=== PATIENT | female | born 1935 | race Caucasian/White ===

== ENCOUNTER 2018-10-11 10:51 | Inpatient (IN) ==
[2018-10-11] MEDS ORDERED: NS 1,000 ML IV ONE ×2 (11:31→18:24)
--- NOTE | 2018-10-11 11:38 | PROVIDER DOCUMENTATION ---
HPI-Syncope/Dizziness - General Chief Complaint: Palpitations Stated Complaint: PALPITATIONS Time Seen by Provider: 10/11/18 11:04 Allergies/Adverse Reactions: Patient Allergies Allergy/AdvReac Type Severity Reaction Status Date / Time Penicillins AdvReac SHORTNESS Verified 10/11/18 11:35 OF BREATH Home Medications: Home Medication List Medication Instructions Recorded Confirmed Last Taken Type Amitriptyline HCl 1 tab PO QHS 10/11/18 10/11/18 Unknown History Amlodipine Besylate/Benazepril 1 tab PO DAILY 10/11/18 10/11/18 Unknown History [Lotrel 10/20 mg Capsule] Atorvastatin Calcium [Lipitor] 1 tab PO DAILY 10/11/18 10/11/18 Unknown History Cyanocobalamin 1,000 microgm IM DIRECTED 10/11/18 10/11/18 Unknown History Furosemide 1 tab PO DAILY 10/11/18 10/11/18 Unknown History Glyburide/Metformin HCl 1 tab PO BID 10/11/18 10/11/18 Unknown History [Glyburide-Metformin 5-500 mg] Insulin Detemir [Levemir] 50 unit SQ DAILY 10/11/18 10/11/18 Unknown History Levothyroxine [Synthroid] 1 tab PO DAILY 10/11/18 10/11/18 Unknown History Meclizine HCl [Antivert] 1 tab PO PRN PRN 10/11/18 10/11/18 Unknown History Metoprolol Tartrate 0.5 tab PO BID 10/11/18 10/11/18 Unknown History - History of Present Illness-Syncope/Dizzy Nature of Presenting Problem: Approx 2 weeks of near syncope and dizziness preceded by a URI, seen today in PCP office, EKG afib, new, no previous arrhythmia or cardiac events. If witnessed syncope, by whom?: sister Prior Episodes: reports: no prior history Onset/Duration: reports: gradual Timing: reports: gone now Position/Activity at time of episode: reports: standing Symptoms prior to episode: reports: lightheaded, racing heart Context: reports: felt faint, almost passed out Loss of Consciousness: brief (seconds) Location of injury. (If syncope resulted in an injury.): reports: none Current Symptoms: reports: short of breath Recently Seen Here or By Another Healthcare Provider: No (sent by PCP today) - Dizziness Severity in ED: reports: mild Dizziness Related Current/Associated Symptoms: reports: none/feels normal, weakness Modifying Factors: improves with: standing position Patient usually:: reports: walks without assistance Review of Systems - Adult - REVIEW OF SYSTEMS - ADULT Constitutional: reports: fatique Eyes: reports: no symptoms reported Ears, Nose, Mouth & Throat: reports: see HPI Cardiovascular: reports: irregular heart rate, syncope Respiratory: reports: no symptoms reported Gastrointestinal: reports: no symptoms reported Genitourinary: reports: no symptoms reported Musculoskeletal: reports: no symptoms reported Integumentary: reports: no symptoms reported Psychiatric: reports: no symptoms reported Hematologic/Lymphatic: reports: no symptoms reported Allergic/Immunologic: reports: no symptoms reported Past History - Adult - PAST MEDICAL HISTORY-ADULT Review of Records: reports: Old Records Reviewed, Nursing Assessment Review, Medications Reviewed, Social history reviewed & non-contributory. Major Childhood Illnesses: reports: denies history Cardiovascular: reports: CAD, HTN Respiratory: reports: denies history Gastrointestinal: reports: denies history Obstetrical/Gynecological: reports: denies history Genitourinary: reports: denies history Musculoskeletal: reports: denies history Neurological: reports: denies history Endocrine/Immune: reports: Diabetes, thyroid disorder Other Conditions: reports: denies history - PRIOR SURGERIES/PROCEDURES Surgical/Procedure History: reports: hysterectomy, joint replacement (bilateral knee and left hip) - IMMUNIZATION STATUS Childhood Immunizations: See Nurse Assessment Flu Vaccine: See Nurse Assessment - FAMILY HISTORY Family History: reviewed, not pertinent - SOCIAL HISTORY Smoking: non-smoker Substance Use: denies Living Situation: family Physical Exam-General - PHYSICAL EXAM-ADULT Exam Limited by: nothing Initial Vital Signs Reviewed: Yes - CONSTITUTIONAL General Appearance: alert, mild distress - EYES Eyes: PERRL/EOMI, pink conjunctivae - HEAD, EARS, NOSE, MOUTH & THROAT HENMT: normocephalic/atraumatic, moist mucous membranes - NECK Neck: non-tender, full range of motion, supple, normal inspection - RESPIRATORY Respiratory: chest non-tender, lungs clear, normal breath sounds, no pleuratic chest pain, no respiratory distress, no accessory muscle use - CARDIOVASCULAR Cardiovascular: normal peripheral pulses, irregularly irregular - GASTROINTESTINAL (ABDOMEN) Abdominal Exam: normal bowel sounds, non tender, soft - LYMPHATIC Lymphatic: no adenopathy - MUSCULOSKELETAL Back Exam: normal inspection Extremity: normal range of motion, non-tender, normal gait, normal inspection, no pedal edema, no calf tenderness Peripheral Pulses: radial (R): 2+, radial (L): 2+, dorsalis-pedis (R): 2+, dorsalis-pedis (L): 2+ - NEUROLOGIC Neurologic: bruise trimmer II-XII nml as tested, grossly normal, no motor/sensory deficits - PSYCHIATRIC Psych/Mental Status: normal mood/affect, normal thought content, normal thought process, oriented x 3 Progress - PLAN OF CARE/RESULTS Progress/Plan/Lab Results: Vital Signs - 8 hr 10/11/18 11:00 10/11/18 11:11 10/11/18 11:12 Temperature 98.9 F Pulse Rate 149 H 147 H 150 H Respiratory Rate 20 20 23 Blood Pressure 116/102 128/100 O2 Sat by Pulse Oximetry 96 97 92 L 10/11/18 11:20 10/11/18 11:21 10/11/18 11:23 Temperature Pulse Rate 141 H 155 H 144 H Respiratory Rate 22 20 21 Blood Pressure 134/100 157/79 O2 Sat by Pulse Oximetry 93 L 100 97 10/11/18 11:30 10/11/18 11:32 10/11/18 11:40 Temperature Pulse Rate 150 H 137 H 150 H Respiratory Rate 19 28 H 18 Blood Pressure 134/111 O2 Sat by Pulse Oximetry 98 97 98 10/11/18 11:44 10/11/18 11:47 10/11/18 11:50 Temperature Pulse Rate 138 H 135 H 125 H Respiratory Rate 24 16 19 Blood Pressure 135/94 139/95 O2 Sat by Pulse Oximetry 99 96 98 10/11/18 11:55 10/11/18 11:57 10/11/18 12:00 Temperature Pulse Rate 145 H 136 H 124 H Respiratory Rate 17 18 22 Blood Pressure 137/99 143/87 O2 Sat by Pulse Oximetry 97 97 97 10/11/18 12:02 10/11/18 12:07 10/11/18 12:10 Temperature Pulse Rate 126 H 141 H 130 H Respiratory Rate 18 21 20 Blood Pressure 133/97 142/87 O2 Sat by Pulse Oximetry 97 97 96 10/11/18 12:12 10/11/18 12:17 10/11/18 12:20 Temperature Pulse Rate 143 H 119 H 127 H Respiratory Rate 21 21 21 Blood Pressure 143/100 138/104 O2 Sat by Pulse Oximetry 97 96 96 10/11/18 12:22 Temperature Pulse Rate 127 H Respiratory Rate 21 Blood Pressure 119/100 O2 Sat by Pulse Oximetry 96 Laboratory Results - last 24 hr 10/11/18 10/11/18 10/11/18 11:18 11:18 11:18 WBC 11.92 H RBC 5.33 Hgb 11.7 L Hct 36.4 L MCV 68.3 L MCH 22.0 L MCHC 32.1 L RDW Std Deviation 18.4 H Plt Count 243 MPV 11.4 H Immature Gran % (Auto) 0.3 Neut % (Auto) 76.0 H Lymph % (Auto) 13.5 L Petroleum % (Auto) 9.6 H Eos % (Auto) 0.3 Baso % (Auto) 0.3 Immature Gran # (Auto) 0.03 Neut # (Auto) 9.07 H Lymph # (Auto) 1.61 Petroleum # (Auto) 1.15 H Eos # (Auto) 0.03 Baso # (Auto) 0.03 PT 17.8 H INR 1.36 PTT (Actin FS) 29.9 Sodium 135 L Potassium 4.1 Chloride 97 L Carbon Dioxide 21 L Anion Gap 17 BUN 27 H Creatinine 0.9 Estimated GFR/1.73 m2 60 BUN/Creatinine Ratio 30 Glucose 106 H Calculated Osmolality 276 Calcium 10.4 H Total Bilirubin 1.15 H AST 457 H ALT 577 H Alkaline Phosphatase 214 H Creatine Kinase 341 H Troponin T Total Protein 7.2 Albumin 4.4 Globulin 2.8 Albumin/Globulin Ratio 1.6 10/11/18 11:18 WBC RBC Hgb Hct MCV MCH MCHC RDW Std Deviation Plt Count MPV Immature Gran % (Auto) Neut % (Auto) Lymph % (Auto) Petroleum % (Auto) Eos % (Auto) Baso % (Auto) Immature Gran # (Auto) Neut # (Auto) Lymph # (Auto) Petroleum # (Auto) Eos # (Auto) Baso # (Auto) PT INR PTT (Actin FS) Sodium Potassium Chloride Carbon Dioxide Anion Gap BUN Creatinine Estimated GFR/1.73 m2 BUN/Creatinine Ratio Glucose Calculated Osmolality Calcium Total Bilirubin AST ALT Alkaline Phosphatase Creatine Kinase Troponin T 0.017 Total Protein Albumin Globulin Albumin/Globulin Ratio Orders Category Date Time Status Regular Diet Diet 10/11/18 13:20 Active CHEST-PORTABLE [RAD] Stat Exams 10/11/18 11:29 Completed CBC WITH ELECTRONIC DIFF [HEME] Stat Lab 10/11/18 11:18 Completed CK TOTAL [CHEM] Stat Lab 10/11/18 11:18 Completed COMPREHENSIVE METABOLIC PANEL [CHEM] Stat Lab 10/11/18 11:18 Completed PROTIME WITH INR [COAG] Stat Lab 10/11/18 11:18 Completed PTT [COAG] Stat Lab 10/11/18 11:18 Completed TROPONIN T Stat Lab 10/11/18 11:18 Completed 0.9% Sodium Chloride Inj [Ns] 1,000 ml Med 10/11/18 11:31 Discontinued IV 200 mls/hr 0.9% Sodium Chloride Inj [Ns] 100 ml Med 10/11/18 11:30 Discontinued Diltiazem [Cardizem] 125 mg IV As Directed Diltiazem L.a. [Cardizem LA] Med 10/11/18 14:52 Discontinued 180 mg PO NOW ONE Diltiazem [Cardizem] Med 10/11/18 13:47 Discontinued 10 mg IV NOW ONE Oxygen Device Stat Oth 10/11/18 11:28 Active EKG [EKG] Stat Ther 10/11/18 11:00 Draft pt arrived in afib without ST changes rate 149 up to 164 SBP 128, hesitant to bolus with cardizem and drop BP, ordered a drip at 5mg/hour confusion w RN as to 10 mg bolus IV cardizem and tablet LA of cardizem, pt down to 101, then began talking and went up to 120, BP great, will bolus 10 and do it again if it will get HR 100 or less with nl BP and will send home as no rooms upstairs just yet d/w pt LFTs, had blood drawn 2 months ago by PCP, was not told of any problem, per RN pt sat up and was short of breath for a moment, pt does not remember this so I wonder about mild dementia as part of history taking difficulty. Drip off, HR 101-115, was hoping to make more progress, pt needs to go to bathroom and will see how well she does, likely admit at this point, I tried to control rate with drip, po and bolus so likely pt has been in afib for awhile Pt failed ambulation, short of breath, speaking in phrases Spoke with Wilmer ESCOBAR for hospitalist service. d/w him HPI PMH exam EKG treatment, failed treatment, symptomatic with sitting up and walking to bathroom, elevated LFTs and other labs discussed, pt meds and restarting drip at 10 , agreed to admit Result Diagrams: 10/11/18 11:18 10/11/18 11:18 - EKG 1 Time of EKG reading by physician:: 11:00 EKG Read and Signed by:: Ramya Mccoy EKG Interpretation (*Must complete 3 of following elements*): Abnormal Rate: 149 Rhythm: afib [place]: normal QRS: normal ST Wave: normal Prior EKG Comparison: no prior EKG - XRAY 1 XRAY: Bilateral XRAY Study: Chest (EXAM: CHEST-PORTABLE 10/11/2018 HISTORY: dyspnea TECHNIQUE : AP portable at 1138 COMMENT: There are scattered granulomata bilaterally. There are calcified subcarinal and right hilar nodes. There are no previous studies available for comparison. The inspiration is suboptimal. The heart size is within normal limits. IMPRESSION: Old granulomatous changes. Electronically signed by Ayo Jordan 10/11/2018 11:47 AM 10/11/18 1147 Interpreting Physician: Ayo Jordan MD Dictated Date/Time: 1146 cc: Ramya Mccoy MD; Milad Méndez MD) - CONSULTS/PCP/HOSPITALIST Notification #1 *Consult/PCP/Hospitalist*: Beto Time Discussed: 17:26 Consult Disposition: Admit (Accepted) Departure - Departure Date of Disposition Decision: 10/11/18 Time of Disposition Decision: 17:55 DIAGNOSIS: Atrial fibrillation with RVR, Elevated liver function tests Disposition: ADMITTED INPATIENT 09 Certified Medical Emergency: Emergent Condition: Serious Referrals and Follow-Ups: Milad Méndez MD [Primary Care Provider] - - Critical Care Note This patient required my direct & personal management of CC.: Yes Total Time (mins): 45 Critical Care Statement: This patient required my direct personal management to treat or rule out processes, the absence of which, could potentiallly result in sudden, clinically significant life or limb threatening deterioration. Attestation - Physician/ ANDIE Attestation Patient care was provided by Advanced Practice Provider:: No The physician spent face to face time with patient:: Yes Advanced Practice Provider documentation review:: Supervising physician onsite and consulted in the evaluation and care of this patient. The physician did have a face to face encounter with the patient.
[2018-10-11 11:49] LABS: INR 1.36; PROTIME 17.8 Seconds (11.0-16.0); PTT 29.9 Seconds (22.3-41.8)
[2018-10-11 11:50] LABS: BASO# 0.03 X1000 (0.0-0.2); BASO% 0.3 % (0.0-0.8); EOS# 0.03 X1000 (0.0-0.7); EOS% 0.3 % (0.0-10.0); HEMATOCRIT 36.4 % (37.0-47.0); HEMOGLOBIN 11.7 g/dL (12.0-16.0); IMM GRAN# 0.03 X1000 (0.0-0.04); IMM GRAN% 0.3 % (0.0-0.5); LYMPH# 1.61 X1000 (1.2-3.4); LYMPH% 13.5 % (20.5-51.1); MCHC 32.1 g/dL (33-37); MCV 68.3 FL (81-99); MONO# 1.15 X1000 (0.11-0.59); MONO% 9.6 % (1.7-9.3); MPV 11.4 FL (7.4-10.4); NEUT# 9.07 X1000 (1.4-6.5); PLT 243 X1000 (130-400); RBC 5.33 XMIL (4.2-5.4); RDW 18.4 % (11.5-14.5); WBC 11.92 X1000 (4.8-10.8)
--- NOTE | 2018-10-11 11:50 | Diag Imaging Result Doc PS360 ---
EXAM: CHEST-PORTABLE 10/11/2018 HISTORY: dyspnea TECHNIQUE: AP portable at 1138 COMMENT: There are scattered granulomata bilaterally. There are calcified subcarinal and right hilar nodes. There are no previous studies available for comparison. The inspiration is suboptimal. The heart size is within normal limits. IMPRESSION: Old granulomatous changes. Electronically signed by Ayo Jordan 10/11/2018 11:47 AM
[2018-10-11] MEDS: CARDIZEM 125 MG in NS 100 ML IV ONE ×2 (11:52→18:00)
[2018-10-11 12:02] LABS: ALB/GLOB RATIO 1.6; ALBUMIN 4.4 g/dL (3.5-5.0); CALCIUM 10.4 mg/dL (8.8-10.2); CREATININE 0.9 mg/dL (0.5-0.9); POTASSIUM 4.1 mmol/L (3.5-5.1); TOTAL BILIRUBIN 1.15 mg/dL (0.20-1.00); TOTAL PROTEIN 7.2 g/dL (6.3-8.3)
--- NOTE | 2018-10-11 12:46 | EKG Report ---
Test Performed on : 10/11/2018 11:00:58 AM Test Reason : ED. NO EKG ORDER FOR MUSE Blood Pressure : / mmHG Vent. Rate : 149 BPM Atrial Rate : 138 BPM P-R Int : 000 ms QRS Dur : 086 ms QT Int : 258 ms P-R-T Axes : 000 -14 205 degrees QTc Int : 406 ms Atrial fibrillation. with rapid ventricular response. Low voltage QRS Septal infarct , age undetermined Inferior infarct , age undetermined Abnormal ECG No previous ECGs available Unconfirmed Result
[2018-10-11] MEDS ORDERED: CARDIZEM IV ONE (13:47)
[2018-10-11] MEDS ORDERED: CARDIZEM LA PO ONE (14:52)
[2018-10-11] MEDS ORDERED: CARDIZEM 100 MG/NS 100 MG/100 ML IVPB IV SCH ×2 (17:45→19:30)
[2018-10-11] MEDS ORDERED: CYANOCOBALAMIN IM SCH (18:30)
--- NOTE | 2018-10-11 18:52 | HISTORY AND PHYSICAL ---
PCP: Dr. Milad Méndez CHIEF COMPLAINT: Dizziness and abnormal EKG. HISTORY OF PRESENT ILLNESS: Ms. Sullivan is an 83-year-old, female with a history of known coronary artery disease status post stenting followed by Dr. Hanson, hypertension, hyperlipidemia, diabetes mellitus, hypothyroidism, who presents directly from Dr. Milad Méndez' office with new onset atrial fibrillation with rapid ventricular response. Symptoms for her began around 2 weeks ago. She has been complaining of dizziness, which has become progressively worse. She initially went to Dr. Milad Méndez, and per report, was diagnosed with inner ear; however, she has continued to get worse with her dizziness and went back to Dr. Méndez today. He performed an EKG and was ultimately found to be in AFib with RVR. The dizziness for her appears to be mainly positional when she stands up, she has had no syncope. She denies any unilateral weakness, no slurred speech or confusion, no changes in her vision. She has had some abdominal distention over the past 2 weeks with no nausea or vomiting, but decreased p.o. intake. She denies any overt chest pain, but does have some palpitations and she does have to take a deep breath when the palpitations get worse, which is when she stands up. She denies any lower extremity edema, no orthopnea, no PND. No fevers, chills. No cough. In the ER she was noted to be in AFib, RVR. Her laboratory data revealed a microcytic anemia as well as fairly significant transaminitis and mild acidosis with a minimal elevation in her anion gap. She does appear to be volume contracted on physical exam. She has been started on Cardizem bolus and drip and she is going to be admitted to the ICU for further treatment and evaluation. PAST MEDICAL HISTORY: 1. Coronary artery disease status post stenting x3, followed by Dr. Hanson. 2. Hyperlipidemia. 3. Hypertension. 4. Type 2 diabetes. 5. Hypothyroidism. 6. Rheumatoid arthritis. SURGICAL HISTORY: She has had bilateral knee arthroplasties, ORIF right tibia- fibula, coronary stenting, hip replacement. SOCIAL HISTORY: She is , denies tobacco, alcohol, or drug use. She has a daughter and [id number] at the bedside. FAMILY HISTORY: Mother from "old age." Father with heart condition, unknown specificity. REVIEW OF SYSTEMS: A 14-point review of systems obtained and found to be negative with the exception of the HPI. ALLERGIES: Penicillin. HOME MEDICATIONS: Amitriptyline 25 mg p.o. h.s., amlodipine, benazepril 1 daily , Lipitor 20 mg daily, cyanocobalamin 1000 mcg injection as directed, Lasix 20 mg daily, glyburide/metformin 5/50 mg 1 p.o. b.i.d., Levemir 50 units subcu daily, Synthroid 125 mcg daily, Antivert 25 mg as needed, metoprolol tartrate 25 mg p.o. b.i.d. PHYSICAL EXAMINATION: VITAL SIGNS: Blood pressure 119/100. Respiratory rate 20. O2 sat 96% on room air. Temperature 98.9. GENERAL: This is an elderly, but well-developed, well-nourished, female lying on the hospital bed in no acute distress. NEUROLOGIC: She is awake, alert, and oriented. Follows commands with no focal deficits noted. HEENT: Her head is atraumatic and normocephalic. Pupils are equal, round, and reactive to light. Oral mucosa is a bit dry. NECK: Trachea is midline. Neck is supple. There is no lymphadenopathy and there is no JVD or carotid bruits noted. CHEST: Diminished at the bases. CV: Irregular rate and rhythm, tachycardic. S1, S2 is noted. No appreciable murmurs. GI: Epigastric and right upper quadrant tenderness to palpation with minimal distention, no rigidity. Bowel sounds are active. EXTREMITIES: No edema, clubbing, or cyanosis. Pulses are 1+ bilaterally. DIAGNOSTIC DATA: Chest x-ray shows old granulomatous disease, no acute changes. EKG: AFib with RVR with low voltage and nonspecific ST-T changes. WBC 11.92, hemoglobin 11.7, hematocrit 36.4, MCV 68.3, platelet count 243. INR 1.36. Sodium 135, potassium 4.1, chloride 97 , CO2 21, anion gap 17, BUN 27, creatinine 0.9, glucose 106, calcium 10.4, T bili 1.15, AST 457 , ALT 577, alk phos 214. CK 341. Troponin 0.017. Protein 7.2, albumin 4.4. ASSESSMENT AND PLAN: 1. New onset atrial fibrillation with rapid ventricular response: The patient has been started on a Cardizem bolus and drip. We will continue this medication and ask cardiology to consult. We will trend her cardiac enzymes, check thyroid panel, and when rate is stable we will check echocardiogram. Given her age and comorbidities of hypertension, diabetes mellitus, and female gender her CHADS score is elevated to the point where anticoagulation is recommended. We will give her 1 dose of Lovenox 1 mg/kg now. 2. Abdominal distention with transaminitis: Concern for cholecystitis. She denies any nausea, vomiting, or weight loss. We will check right upper quadrant ultrasound and a lipase, amylase. If she has cholecystitis or any other obstruction we will consult GI and/or surgery. 3. Coronary artery disease: The patient denies any overt chest pain; however, we will trend her enzymes, make sure she is on aspirin, consult cardiology. 4. Microcytic anemia: We will check iron studies. She is on B12, we will treat accordingly. 5. Dizziness: Likely volume mediated. She is on Lasix, unclear as to what exactly for. She does not appear to have a congestive heart failure history. We will go ahead with some light IV fluids, check orthostatics, and try and control her heart rate. 6. Hypertension and hyperlipidemia: We will treat accordingly. Hold off on any diuretic based antihypertensives for now. 7. Deep venous thrombosis prophylaxis with Lovenox. Further recommendations to follow. Dictated by LIZETH Gómez for Anshu Mark MD cc: LIZETH Gómez MD David Francis, MD I have seen and examined Ms Sullivan today. Daughter was at bedside. I have also reviewed her labs and imagining studies. Ms Sullivan presents with Symptomatic new onset Afib with RVR. Will continue with the Cardizem drip an the rest of the plan outlined above. I agree with the above HPI and the plan reflects my opinion discussed with the [employer]. RAI
--- NOTE | 2018-10-11 19:40 | Diag Imaging Result Doc PS360 ---
EXAM: US GB < RUQ (LIMITED) HISTORY: transaminitis, RUQ pain TECHNIQUE: Right upper quadrant ultrasound COMPARISON: None. FINDINGS: The pancreas is predominantly obscured. No abdominal aortic aneurysm. Normal inferior vena cava. There is a small amount of fluid about the liver. No focal hepatic abnormality. There is gallbladder wall thickening. This is frequently seen with ascites. The common bile duct measures 3 mm. No stones. Normal right kidney. No hydronephrosis. IMPRESSION: Small amount of ascites. Electronically signed by Laron Duvall 10/11/2018 7:38 PM
[2018-10-11 20:20] LABS: CK INDEX 6.6 (0.0-2.5); CK-MB 12.73 ng/mL (0.0-5.0); FREE T4 1.83 ng/dL (0.93-1.70); TSH 0.58 uIUmL (0.27-4.20)
[2018-10-11] MEDS: LOVENOX SUBQ SCH (21:26)
[2018-10-11] MEDS: ELAVIL PO SCH (21:26)
[2018-10-11 23:39] LABS: URINE SOURCE CLEAN CATCH
[2018-10-12 00:06] LABS: BILIRUBIN URINE NEGATIVE (NEGATIVE); BLOOD URINE NEGATIVE (NEGATIVE); COLOR YELLOW; GLUCOSE URINE NEGATIVE (NEGATIVE); KETONE URINE TRACE mg/dL (NEGATIVE); LEUKOCYTES URINE LARGE (NEGATIVE); NITRITE URINE POSITIVE (NEGATIVE); PH URINE 5.5; PROTEIN URINE 50 mg/dL (NEGATIVE); SP GRAVITY URINE 1.025; TURBIDITY URINE HAZY (CLEAR); UR EPITHELIAL CELLS <10 /HPF (<10); URINE BACTERIA 4+ /HPF; URINE RBC <10 /HPF (<10); URINE WBC TNTC /HPF (<10); UROBILINOGEN URINE 2 mg/dL (NORMAL)
[2018-10-12] MEDS ORDERED: ULTRAM PO ONE (00:28)
[2018-10-12 02:42] LABS: CK INDEX 6.2 (0.0-2.5); CK-MB 12.16 ng/mL (0.0-5.0)
[2018-10-12 05:28] LABS: BASO# 0.04 X1000 (0.0-0.2); BASO% 0.4 % (0.0-0.8); EOS# 0.03 X1000 (0.0-0.7); EOS% 0.3 % (0.0-10.0); HEMATOCRIT 31.6 % (37.0-47.0); HEMOGLOBIN 10.1 g/dL (12.0-16.0); IMM GRAN# 0.05 X1000 (0.0-0.04); IMM GRAN% 0.5 % (0.0-0.5); LYMPH# 1.86 X1000 (1.2-3.4); LYMPH% 16.9 % (20.5-51.1); MCH 22.3 PG (27-31); MCV 69.8 FL (81-99); MONO# 1.29 X1000 (0.11-0.59); MONO% 11.7 % (1.7-9.3); MPV 11.2 FL (7.4-10.4); NEUT# 7.73 X1000 (1.4-6.5); NEUT% 70.2 % (42.2-75.2); PLT 181 X1000 (130-400); RBC 4.53 XMIL (4.2-5.4); RDW 18.1 % (11.5-14.5); RETIC% 2.61 % (0.8-2.1); RETIC-HE 19.9 PG (28.2-36.6)
[2018-10-12 05:33] LABS: HEMOGLOBIN A1C 7.9 % (4.8-6.0)
[2018-10-12 05:34] LABS: CHOLESTEROL 86 mg/dL (0-200); HDL 31 mg/dL (45-65); LDL 39 mg/dL; TRIGLYCERIDES 81 mg/dL (35-135); VLDL 16 mg/dL
[2018-10-12] MEDS: SYNTHROID PO SCH (06:18)
[2018-10-12] MEDS ORDERED: SYNTHROID PO SCH (07:00)
[2018-10-12 07:20] LABS: LYMPHS 16 % (21-51); MONO 4 % (1-9); SEGS 80 % (42-75)
--- NOTE | 2018-10-12 07:22 | EKG Report ---
Test Performed on : 10/12/2018 06:59:31 AM Test Reason : Afib Blood Pressure : / mmHG Vent. Rate : 079 BPM Atrial Rate : 227 BPM P-R Int : 000 ms QRS Dur : 084 ms QT Int : 392 ms P-R-T Axes : 000 -07 -14 degrees QTc Int : 449 ms Atrial fibrillation. with premature ventricular or aberrantly conducted complexes. Low voltage QRS Possible Inferior infarct (cited on or before 11-OCT-2018) Cannot rule out Anteroseptal infarct (cited on or before 11-OCT-2018) Abnormal ECG When compared with ECG of 11-OCT-2018 11:00, (Unconfirmed) Vent. rate has decreased BY 70 BPM Questionable change in initial forces of Anterior leads Nonspecific T wave abnormality no longer evident in Lateral leads Confirmed by Betty OWUSU, Richard Ferguson ([id number]) on 10/13/2018 7:09:44 PM
[2018-10-12 08:56] LABS: ALB/GLOB RATIO 1.3; ALBUMIN 3.4 g/dL (3.5-5.0); DIRECT BILIRUBIN 0.3 mg/dL (0.00-0.20); TOTAL BILIRUBIN 0.98 mg/dL (0.20-1.00)
[2018-10-12] MEDS ORDERED: LOPRESSOR PO SCH (09:00)
[2018-10-12] MEDS: LOVENOX SUBQ SCH ×2 (09:16→21:22)
[2018-10-12] MEDS: LOTREL 5/10 MG PO SCH (09:16)
[2018-10-12] MEDS ORDERED: INSULIN PEN NEEDLES ONE (09:17)
[2018-10-12] MEDS: LEVEMIR SUBQ SCH (09:17)
[2018-10-12] MEDS ORDERED: MAGNESIUM SULFATE 4 GM/S.W.I. 4 GM/100 ML IVPB IV ONE (10:48)
--- NOTE | 2018-10-12 12:06 | PROGRESS NOTE ---
DATE: 10/12/2018 SUBJECTIVE: This morning, Ms. Sullivan refers to be feeling a lot stronger and less fatigued. No chest pain and no shortness of breath. OBJECTIVE: Vital Signs: Blood pressure is 129/82, pulse is 75, respirations 19 , temperature 97.6 degrees. General: Ms. Sullivan is an 83-year-old female. She was sitting up in a chair. The brother was at the bedside at the time of the encounter. HEENT: Mucosa was pink and moist. Anicteric. Acyanotic. Neck: Supple. There was no JVD and no carotid bruit. Respiratory: There is good air entry bilaterally. No crepitations. No rhonchi. There was no accessory muscle use. Cardiovascular: Irregularly irregular, but rate controlled. No murmurs, no rubs, no gallops. Abdomen: Soft, minimally tender around the periumbilical area, but for the most part it is unremarkable. Bowel sounds were present. There was no hepatosplenomegaly. Extremities: No pedal edema. Central Nervous System: The patient is awake, alert, oriented. There is no focal neurological deficit. LABORATORY DATA: WBC is 11, hemoglobin is 10.1, platelet count of 181,000. Chemistry is also reviewed. No BMP for today. Magnesium is 1.3. Liver enzymes are still elevated. Chest x-ray yesterday did show old granulomatous changes. Ultrasound of the abdomen did show small amount of ascites. ASSESSMENT AND PLAN: 1. Atrial fibrillation with rapid ventricular response. The patient was initially started on intravenous Cardizem. This has been transitioned to her oral beta-reji. Heart rate seems to be under better control. The patient is being seen by Cardiology. 2. Transaminitis with pattern consistent with hepatocellular injury. Etiology unknown. Probably congestion hepatopathy vs Ischemic liver injury. So far, the ultrasound was unremarkable for gallstones. However, it does show a thickened gallbladder wall, which could be because of the ascites or it could be because of maybe an acalculous gallbladder dyskinesia. We will do a HIDA scan to see if a this is an issue. We will also consult Gastrointestinal to evaluate the patient. 3. Microcytic anemia secondary to iron deficiency. We will start the patient on iron infusion. 4. Hypomagnesemia. This will be replaced. 5. Generalized weakness and fatigue on presentation, improved. We think this is probably related due to the atrial fibrillation with rapid ventricular response with poor cardiac output. Now that the atrial fibrillation is better controlled, the patient is feeling a lot better. In general, we are still kind of waiting the echocardiogram because there is a suspicion that some of these transaminitis could be passive congestion vs ischemia. However, other etiologies needs to be ruled out, and we will get Gastrointestinal to see the patient, and we will also do a HIDA scan and while we pending the echocardiogram report. cc: Anshu Mark MD MTDD
[2018-10-12] MEDS ORDERED: LASIX IV ONE (12:51)
[2018-10-12 12:55] LABS: INR 1.62; PROTIME 20.5 Seconds (11.0-16.0)
--- NOTE | 2018-10-12 13:41 | CONSULTATION ---
DATE OF CONSULTATION: 10/12/2018 IMPRESSIONS: 1. Atrial fibrillation with rapid ventricular rate. Probably recent onset. 2. Abnormal/elevated serum transaminases. Etiology not entirely clear, but neck vein distention present. Consider possible right-sided congestive heart failure and hepatic congestion, among other etiologies. 3. Hypertension. 4. Atherosclerotic coronary disease with previous angioplasty/stenting. She has had no recurrence of angina. 5. Type 2 diabetes mellitus. 6. Hyperlipidemia. RECOMMENDATIONS: 1. Continue Lovenox 1 mg/kg subcutaneously q.12. 2. Agree with intravenous diltiazem for rate control. Continue metoprolol as well. 3. Diurese with intravenous Lasix and follow clinical response. 4. Follow up echocardiography. 5. Venous Doppler study of the lower extremities to rule out DVT. 6. Chest CT angiography to rule out pulmonary emboli. HISTORY: This 83-year-old white female with a past history of previous coronary angioplasty/stenting, hypertension, hyperlipidemia, type 2 diabetes mellitus, and hypothyroidism, was admitted with recent episodic shortness of breath and dizziness, as well as anorexia and some abdominal distention. She has been found to be in newly diagnosis atrial fibrillation rapid ventricular rate. Cardiology was consulted. She relates that she was well up until about 2 weeks ago. She started having spells of dizziness and shortness of breath. She was felt to have a possible inner ear problem. However, her symptoms progressively worsened in the last 48 hours. She became more short of breath and have more prominent palpitations, prompting her to come in for evaluation. She has not had any angina. She has not really had any orthopnea. She has not noted any peripheral swelling. PAST MEDICAL HISTORY: 1. Atherosclerotic coronary disease with previous coronary angioplasty/stenting. Left ventricular systolic function has been normal. 2. Hypertension. 3. Hyperlipidemia. 4. Type 2 diabetes mellitus. 5. Hypothyroidism. 6. Anemia. 7. Rheumatoid arthritis. PAST SURGICAL HISTORY: Includes bilateral knee arthroscopic procedures, open reduction and internal fixation of right tib-fib fracture, angioplasty/stenting to left anterior descending coronary with drug-eluting stent, hip replacement, and hysterectomy. ALLERGIES: She is allergic or intolerant to penicillin. MEDICATIONS: Medications prior to admission as listed. SOCIAL HISTORY: She is . She does not smoke or use alcohol. She lives locally with supportive family. FAMILY HISTORY: Negative for premature coronary disease. REVIEW OF SYSTEMS: Pulmonary: Noteworthy for dyspnea but negative for cough. Gastrointestinal: Noteworthy for anorexia and some abdominal swelling, but otherwise negative. Constitutional: Noncontributory. Remainder of review of systems negative/noncontributory with 14 total systems reviewed. PHYSICAL EXAMINATION: General: Reveals a pleasant, elderly white female in no distress, on supplemental oxygen per nasal cannula. Vital signs: Blood pressure 129/82, heart rate 75 and irregular with ECG monitor showing atrial fibrillation. Oxygen saturation 97% on supplemental oxygen. HEENT: Extraocular movements appear intact. Mucous membranes are moist. Neck: Supple. Jugular venous distention is present, consistent with elevated central venous pressure. There are no carotid bruits. Chest: Auscultation of the chest reveals a few inspiratory crackles in the bases bilaterally. Cardiac: Exam reveals an irregular rate and rhythm without appreciable murmur or gallop. Abdomen: Mildly distended and soft. Bowel sounds audible. Extremities: Without edema. Neurologic: Reveals her to be alert and fully oriented. Speech is fluent. She moves all 4 extremities equally well. Skin: Warm and dry. Psychiatric: Reveals her mood to be appropriate. EKG: A 12 lead EKG demonstrates atrial fibrillation with rapid ventricular rate and low-voltage QRS. LABORATORY DATA: Includes a white blood cell count 11.0, hematocrit 31.6, hemoglobin 10.1, platelet count 181,000. Pro time 20.5, INR 1.62. Glucose 106. AST 595, ALT 684, alkaline phosphatase 180, albumin 3.4, total bilirubin 0.98. Troponin less than 0.01. Follow-up troponin less than 0.01. TSH 0.58, free T4 1.83. Chest x-ray reports no acute infiltrates. cc: Yoav Eagle MD
[2018-10-12 13:45] LABS: HEPATITIS PROFILE ACUTE SEE COMMENTS
--- NOTE | 2018-10-12 14:34 | EKG Report ---
Test Performed on : 10/12/2018 2:28:21 PM Test Reason : Confirm rhythm Blood Pressure : / mmHG Vent. Rate : 056 BPM Atrial Rate : 120 BPM P-R Int : 000 ms QRS Dur : 092 ms QT Int : 470 ms P-R-T Axes : 000 000 -15 degrees QTc Int : 453 ms Atrial fibrillation. with slow ventricular response. with premature ventricular or aberrantly conduct ed complexes. Low voltage QRS Incomplete right bundle branch block Cannot rule out Inferior infarct (cited on or before 11-OCT-2018) Cannot rule out Anterior infarct (cited on or before 11-OCT-2018) Abnormal ECG When compared with ECG of 12-OCT-2018 06:59, (Unconfirmed) No significant change was found Confirmed by Betty OWUSU, Richard Ferguson ([id number]) on 10/13/2018 7:22:02 PM
--- NOTE | 2018-10-12 14:56 | CONSULTATION ---
DATE OF CONSULTATION: 10/12/2018 REASON FOR CONSULTATION: Elevated liver function tests. HISTORY OF PRESENT ILLNESS: This is an 83-year-old white female with a history of coronary artery disease, history of angioplasty and stenting. She has presented with progressive dizziness, poor appetite, palpitations. She has come in for evaluation and found to have diagnosis of atrial fibrillation with rapid ventricular rate. She has been started on IV Cardizem. She has been seen by Cardiology. During workup, she was found to have elevated liver function tests. On admission, her total bilirubin was 1.15, AST 457, ALT 577, alkaline phosphatase 214. We have never seen the patient in the office before. She states she has seen Dr. Gutierrez in the past. She thinks she had a colonoscopy about 3 to 4 years ago. She states she has never been told she had liver problems. She has reported some abdominal distention and abdominal discomfort. She has had a poor appetite lately. She has denied nausea or vomiting. She states she normally has good bowel movements except for the last several days. She states she does not require anti-reflux medications at home. She has denied any visible blood in the stool or black stools. She has denied any evidence of jaundice. She has reported some issues with dizziness and shortness of breath. She has reported some fatigue and weakness. No significant chest pain. She has reported abdominal discomfort and distention. PAST MEDICAL HISTORY: Atherosclerotic heart disease with history of angioplasty and stenting. Hypertension, hyperlipidemia, diabetes type 2, hypothyroidism, history of anemia , and rheumatoid arthritis. PAST SURGICAL HISTORY: Bilateral knee surgeries. ORIF of right tibia-fibula fracture. Cardiac angioplasty and stenting. History of hip replacement. Hysterectomy. ALLERGIES: Penicillin causing shortness of breath. HOME MEDICATIONS: 1. Amitriptyline 1 tablet every night. 2. Lotrel 10/20 mg daily. 3. Lipitor 1 tablet daily. 4. Vitamin B 12, a 1000 mcg IM as directed. 5. Lasix 1 tablet daily. 6. Gliperide/metformin 5/500 mg twice a day. 7. Levemir 50 units daily. 8. Synthroid 1 tablet daily. 9. Antivert 1 tablet as needed. 10. Metoprolol 0.5 twice a day. SOCIAL HISTORY: She denies tobacco or alcohol use. She is a . She lives with her daughter and son-in-law. REVIEW OF SYSTEMS: Pertinent positive and negative listed in history of present illness. PHYSICAL EXAMINATION: Vital Signs: Temperature 97.5, pulse 90, respirations 26 , blood pressure 99/79. Generally, the patient is awake and alert. She does have some shortness of breath noted. Respiratory with some crackles bilaterally. Cardiovascular: Irregular rate. Abdomen: With some distention but soft. Positive bowel sounds. Extremities: With no lower extremity edema noted. Neurological: Cranial nerves 2-12 grossly intact. Patient is awake, alert, oriented to person, place, and time. DIAGNOSTIC RESULTS: Laboratory: Hematology: WBC 11.0, hemoglobin 10.1, hematocrit 31.6. MCV 69.8, MCH 22.3. Platelet 181,000. Coagulation: ProTime 20.5. INR 1.62. PTT 29.9. Chemistry: Sodium 135, potassium 4.1, chloride 97, CO2 21. BUN 27, creatinine 0.9, glucose 106. Iron 13, TIBC 322. Percent saturation 4. Total bilirubin 0.98. AST 595. ALT 684. Alkaline phosphatase 180. ProBNP 1054. Amylase 60. Lipase 31. Vitamin B12 greater than 2000. Folate 11.0. TSH 0.58. Free T4 1.83. Toxicology: Acetaminophen level less than 1.2. Serology: Hepatitis panel was nonreactive. IMAGING STUDIES: Abdominal ultrasound showed a small amount of ascites. No focal hepatic abnormality. There was gallbladder wall thickening noted. Common bile duct measured 3 mm with no noted stones. ASSESSMENT AND PLAN: 1. Atrial fibrillation with rapid ventricular response. Patient has been started on Cardizem drip. Cardiology is following. She has had an echocardiogram ordered and lower extremity Doppler studies. 2. Elevated liver function tests, question of congestive hepatopathy versus ischemic injury to the liver. Tylenol level was normal. Hepatitis profile was nonreactive. HIDA scan has been ordered for tomorrow. Awaiting echocardiogram results, HIDA scan, Doppler studies. Continue current medications and management. We will continue to follow and further plans will be made as needed. I have discussed this case with Dr. Cortes. Also noted, her iron studies were normal. Percent saturation was normal. She does have low iron and mild anemia. We will continue to follow. Thank you for this consultation. Dictated by LIZETH Jackson for Giovani Cortes MD cc: Greer LIZETH Israel MD MTDD
[2018-10-12] MEDS ORDERED: LASIX PO ONE (18:00)
--- NOTE | 2018-10-12 18:21 | ECHO REPORT ---
ORDER DATE: 10/12/2018 INDICATION: An 83-year-old female with atrial fibrillation with rapid response. M-MODE MEASUREMENTS: Left ventricle end diastole: 3.8. Left ventricle end systole: 3.1. Posterior wall: 1.2. Interventricular septum: 1.1. Left atrium: 5.2. Aortic root: 2.9. SUMMARY OF 2-DIMENSIONAL IMAGIN. The study is abnormal. Left ventricular systolic function appears to be at the lower limits of normal. It is estimated to be somewhere around 55%. There is abnormal motion of the interventricular septum due to marked dilatation of the right ventricle with volume and pressure overload. There is flattening of the septum. 2. The right ventricle is markedly dilated. 3. The tricuspid valve appears to have impaired coaptation causing a severe degree of regurgitation. The pulmonary systolic pressure cannot be calculated in this case due to the wide-open tricuspid regurgitation. 4. The left atrium is markedly dilated, and so appears to be the right atrium. The inferior vena cava is also dilated. 5. The pulmonary pressure is probably markedly elevated and cannot be calculated in this case properly. 6. The mitral valve appears to be abnormal. On the parasternal views there is a suggestion of a flail element, possible a ruptured chordae with a moderate degree of mitral regurgitation. It may be more severe than that. 7. The patient is in atrial fibrillation. Therefore, diastolic dysfunction cannot be properly estimated, especially given the significant valvular disease. 8. There is calcification of the mitral annulus. 9. The pulmonic valve shows a mild degree of regurgitation. 10.The aortic valve looks grossly normal. SUMMARY: This study shows: 1. Left ventricular systolic function at the lower limits of normal with abnormal motion of the septum due to significant enlargement of the right ventricle. 2. Significantly enlarged right ventricle with mild global hypokinesis. 3. Wide-open tricuspid regurgitation. Pulmonary pressure cannot be calculated. 4. Suspected flail, posterior leaflet of the mitral valve, possible ruptured chordae. 5. Unremarkable aortic valve. 6. Significant enlargement of the atrium. RECOMMENDATION: Transesophageal echocardiogram should be considered to evaluate the mitral valve when the patient is clinically stable. cc: MD Anshu Talavera MD
[2018-10-12] MEDS: LOPRESSOR PO SCH (21:22)
[2018-10-12] MEDS: ELAVIL PO SCH (21:22)
[2018-10-13] MEDS ORDERED: D50W SYRINGE IV ONE (04:40)
[2018-10-13] MEDS ORDERED: D50W SYRINGE ONE (04:44)
[2018-10-13 05:17] LABS: BASO# 0.01 X1000 (0.0-0.2); BASO% 0.1 % (0.0-0.8); HEMATOCRIT 30.4 % (37.0-47.0); HEMOGLOBIN 9.1 g/dL (12.0-16.0); IMM GRAN# 0.09 X1000 (0.0-0.04); IMM GRAN% 0.5 % (0.0-0.5); LYMPH# 1.66 X1000 (1.2-3.4); LYMPH% 8.4 % (20.5-51.1); MCHC 29.9 g/dL (33-37); MCV 73.4 FL (81-99); MONO# 2.12 X1000 (0.11-0.59); MONO% 10.7 % (1.7-9.3); MPV 11.9 FL (7.4-10.4); NEUT# 15.91 X1000 (1.4-6.5); NEUT% 80.3 % (42.2-75.2); PLT 179 X1000 (130-400); RBC 4.14 XMIL (4.2-5.4); RDW 19.2 % (11.5-14.5); WBC 19.79 X1000 (4.8-10.8)
[2018-10-13 05:35] LABS: INR 2.83; PROTIME 31.7 Seconds (11.0-16.0)
[2018-10-13 05:41] LABS: ALB/GLOB RATIO 1.5; ALBUMIN 3.4 g/dL (3.5-5.0); CALCIUM 9.4 mg/dL (8.8-10.2); CREATININE 1.6 mg/dL (0.5-0.9); MAGNESIUM 2.4 mg/dL (1.5-2.7); POTASSIUM 5.4 mmol/L (3.5-5.1); TOTAL BILIRUBIN 1.13 mg/dL (0.20-1.00); TOTAL PROTEIN 5.7 g/dL (6.3-8.3)
[2018-10-13 06:14] LABS: ALLEN TEST YES; BE -20.4 mmoll (-3.0-3.0); BLOOD TYPE ARTERIAL; HCO3-(ACT) 9.1 mmoll (20.0-26.0); METHB 0.3 % (0.0-1.5); O2(CT) 13.7 mL/dL (15.0-23.0); O2HB 98.2 % (95.0-99.0); PO2(98.6) 184 mmHg (60-100); SAMPLE BLOOD; SAO2 99.9 % (95.0-100.0); THB 9.6 g/dL (11.5-17.4)
[2018-10-13] MEDS: LOVENOX SUBQ SCH ×2 (06:15→20:12)
[2018-10-13 06:16] LABS: MODALITY VENTIMASK; PCO2(98.6) 17 mmHg (35-45); pH(98.6) 7.17 (7.35-7.45)
[2018-10-13] MEDS: MERREM 1 GM in NS 50 ML IV SCH ×3 (06:24→23:14)
[2018-10-13] MEDS: SYNTHROID PO SCH (06:27)
[2018-10-13 06:44] LABS: SALICYLATES < 3.00 mg/dL (3-10)
[2018-10-13 06:45] LABS: ACETONE SERUM NEGATIVE (NEGATIVE)
--- NOTE | 2018-10-13 07:02 | Diag Imaging Result Doc PS360 ---
EXAM: CHEST-PORTABLE 10/13/2018 HISTORY: dyspnea TECHNIQUE: AP portable at 0604 COMMENT: There are scattered granulomata. The inspiration is less optimal than on 10/11/2018. There may be a mild degree of atelectasis in the left base. IMPRESSION: Left lower lobe atelectasis. Electronically signed by Ayo Jordan 10/13/2018 7:00 AM
--- NOTE | 2018-10-13 07:24 | EKG Report ---
Test Performed on : 10/13/2018 06:58:31 AM Test Reason : afib Blood Pressure : / mmHG Vent. Rate : 068 BPM Atrial Rate : 068 BPM P-R Int : 000 ms QRS Dur : 096 ms QT Int : 460 ms P-R-T Axes : 000 010 -24 degrees QTc Int : 489 ms Atrial fibrillation. Low voltage QRS Incomplete right bundle branch block Cannot rule out Anterior infarct (cited on or before 11-OCT-2018) Abnormal ECG When compared with ECG of 12-OCT-2018 14:28, (Unconfirmed) No significant change was found Confirmed by Betty OWUSU, Richard Ferguson ([id number]) on 10/13/2018 7:35:43 PM
--- NOTE | 2018-10-13 09:29 | Diag Imaging Result Doc PS360 ---
EXAM: CT THORAX/ABD/PELVIS W/O CON 10/13/2018 HISTORY: sepsis TECHNIQUE: This exam was performed using automated exposure control, adjustment of mA or kV according to patient size, and/or use of iterative reconstruction technique. COMMENT: The patient was subsequently scanned with contrast four pulmonary arteriography and abdominal CT angiography. There are no previous studies available for comparison. Thorax: The study is somewhat suboptimal due to motion. There is atelectasis present in the inferior lingula and both lower lobes. There are bilateral pleural effusions. There are calcified nodes in the dea. There are coronary calcifications. There is calcification in the mitral valve annulus. There is some subcutaneous edema. ABDOMEN: There is ascites. The spleen is not enlarged. There is no evidence of nephrolithiasis or hydronephrosis. There are calcifications in the aorta which is not distended. There is subcutaneous edema consistent with anasarca. There is some stool in the colon. There is gas throughout much of the colon and small bowel without evidence of mucosal thickening or pneumatosis. The stomach is slightly distended with gas. The adrenal glands are not enlarged. The pancreas is somewhat atrophic in appearance. Pelvis: There is gas and stool in the rectosigmoid colon. There is perirectal edema. The urinary bladder is not particularly distended and is otherwise unremarkable in appearance. There is no evidence of appendicitis. There are degenerative disc and facet changes in the lumbar spine. No evidence of acute bony abnormality is present. IMPRESSION: Edematous changes consistent with anasarca. Bilateral pleural effusions, bibasilar atelectasis and ascites. The possibility of ileus cannot be excluded. Electronically signed by Ayo Jordan 10/13/2018 9:27 AM
[2018-10-13] MEDS: LASIX IV SCH (09:47)
[2018-10-13] MEDS: LEVEMIR SUBQ SCH (09:57)
[2018-10-13] MEDS: LOTREL 5/10 MG PO SCH (10:12)
[2018-10-13] MEDS: LOPRESSOR PO SCH ×2 (10:12→20:12)
--- NOTE | 2018-10-13 10:29 | Diag Imaging Result Doc PS360 ---
EXAM: CT ANGIOGRAM THORAX/ABDOMEN INDICATION: RO PE, SEPSIS, EVALUATE ARTERIAL BLOOD FLOW TO ABDOMEN TECHNIQUE: This exam was performed using automated exposure control, adjustment of mA or kV according to patient size, and/or use of iterative reconstruction technique. Thin section axial images through the chest and abdomen were obtained and 3-D MIPS were generated. COMPARISON: Very recent CT of the chest, abdomen, and pelvis without contrast performed earlier today. FINDINGS: CTA CHEST: There is no evidence of pulmonary embolism. There is mild thoracic aortic atherosclerotic calcification. There is no evidence of thoracic aortic aneurysm. There is little contrast in the thoracic aorta. However, there is nothing that would suggest thoracic aortic dissection. Otherwise, the chest is stable as compared to the very recent unenhanced CT performed a few minutes prior. CTA ABDOMEN: There is reflux of contrast into the hepatic veins suggesting some degree of right heart failure. There is moderate aortoiliac atherosclerotic calcification that is worst distally. There is no abdominal aortic aneurysm or dissection. There is trace atherosclerotic calcification at the origins of the celiac trunk and the SMA but both remain widely patent. The AV is small but appears to be patent well. There is fairly mild atherosclerotic calcification at the origins of the renal arteries bilaterally that is causing less than 50% narrowing of the lumen. There is minimal narrowing of the common iliac arteries bilaterally by atherosclerotic calcification. The visualized portions of the external and internal iliac arteries are patent. Otherwise, the abdomen is stable as compared to the very recent prior unenhanced CT abdomen/pelvis performed a few minutes before the current study. IMPRESSION: 1.No evidence of pulmonary embolism. 2.Moderate aortoiliac atherosclerotic calcification with mild atherosclerotic calcification involving the origins of a few of the major branches of the aorta as described. No high-grade stenosis is appreciated. 3.Otherwise, the chest and abdomen are stable as compared to the very recent unenhanced CT of the chest, abdomen, and pelvis performed a few minutes prior to this study. Electronically signed by Audie Chin 10/13/2018 10:27 AM
--- NOTE | 2018-10-13 11:00 | Extremity Venous Study ---
PROCEDURE NAME: Venous U/S Bilateral Legs - 10/12/2018 BILATERAL LOWER EXTREMITY VENOUS DUPLEX AND COLOR-FLOW IMAGING STUDY: EQUIPMENT: Callisionid E9 ultrasound system with 9L-D transducer. REFERRING PHYSICIAN: Yoav Eagle MD PATIENT LOCATION: Inpatient. EDUCATIONAL AUDIOLOGIST: Sarah Moreno RVT INDICATIONS: Shortness of breath. Rule out pulmonary embolism and deep venous thrombosis. FINDINGS: The right common femoral vein and its branches, deep and superficial femoral veins were satisfactorily imaged. They had flow through them and were compressible. The right popliteal vein and deep veins below the right knee were all compressible and had flow through them. The superficial veins of the right lower extremity were compressible throughout their length. The left common femoral vein and its branches, deep and superficial femoral veins were also satisfactorily imaged. They had flow through them and were compressible. The left popliteal vein and deep veins below the left knee were all compressible and had flow through them. The superficial veins of the left lower extremity were compressible throughout their length. INTERPRETATION: No evidence of acute deep or superficial venous thrombosis of the bilateral lower extremities. cc: MD Yoav Tierney MD
[2018-10-13] MEDS ORDERED: DOPAMINE 400 MG/D5W 400 MG/500 ML IV.SOLN IV SCH (11:45)
[2018-10-13 11:54] LABS: ALLEN TEST YES; BLOOD TYPE ARTERIAL; HCO3-(ACT) 9.4 mmoll (20.0-26.0); METHB 0.7 % (0.0-1.5); O2(CT) 13.7 mL/dL (15.0-23.0); O2HB 97.7 % (95.0-99.0); PO2(98.6) 166 mmHg (60-100); SAMPLE BLOOD; SAO2 99.7 % (95.0-100.0); THB 9.7 g/dL (11.5-17.4)
[2018-10-13 11:55] LABS: MODALITY NRB
[2018-10-13 11:56] LABS: PCO2(98.6) 18 mmHg (35-45); pH(98.6) 7.17 (7.35-7.45)
[2018-10-13] MEDS ORDERED: DOPAMINE 800 MG/D5W 800 MG/500 ML IV.SOLN IV SCH (12:00)
--- NOTE | 2018-10-13 12:21 | PROGRESS NOTE ---
DATE: 10/13/2018 SUBJECTIVE: This morning, Ms. Sullivan refers to be feeling a lot sicker, has more shortness of breath. I had seen her early on. I reviewed her labs very, very early this morning. I saw that she was very acidotic, started working her up for possible septic shock. Early this morning when I came to work, I was able to get in contact with Dr. Eagle. Both of us reviewed all her clinical data. Initially thought that she could have some element of PE. So after extensive discussions, we decided that she needed to have a CTA with contrast, even despite her creatinine was a little bit elevated. We also discussed the contrast use with Dr. Jordan , who is the radiologist, and it was eventually done. The CTA was negative for any PE, and the abdominal CTA of the abdomen was also unremarkable for any ischemic gut. Her vitals: She runs slightly hypotensive a couple times in the middle of the night to early this morning. OBJECTIVE: Vital signs: However, her vitals this morning are stable. Blood pressure is 128/63, pulse is 93, respirations 24, temperature 97.5 degrees. General: Ms. Sullivan is an 83-year-old female. She looks in distress. HEENT: Mucosa is pink. Anicteric. Acyanotic. Neck: Supple, questionable JVD. Chest: Air entry is bilaterally reduced. There is crepitations posteriorly. Cardiovascular: Regular rate and rhythm. I did not really appreciate any murmur. Abdomen: Soft, nontender. Bowel sounds present. Extremities: No pedal edema. CHARACTER IMPERSONATOR: Patient was awake, alert. Follows basic commands. LABORATORY DATA: WBC is 19.79, hemoglobin is 9.1, platelet count of 176,000. INR went up to 2.83. ABG this morning did show pH of 7.17, pCO2 was 17, PaO2 was 184. This was on Venturi mask. IMAGING STUDIES THAT HAVE BEEN DONE SO FAR THIS MORNING: A venous Doppler was done which showed no evidence of DVTs. An echocardiogram yesterday shows an ejection fraction was somewhere around 55. There was a right ventricle mildly dilated. There is also significant wide open tricuspid regurgitation. There was a suspected flail of the posterior leaflet of the mitral valve, which raised the possibility of a ruptured chordee. Significant enlargement of the atrium. A chest and abdomen was done this morning which showed no evidence of pulmonary embolism. There is some moderate aortoiliac calcification, but otherwise nothing abnormal. A chest x-ray showed lower lobe atelectasis. ASSESSMENT: Ms. Sullivan is an 83-year-old got admitted on the 8th mainly because of dizziness and abnormal electrocardiogram from Dr. Méndez' office, was found to be in atrial fibrillation and rapid ventricular response, was admitted overnight. Yesterday, she seems to have been doing a little better. However, this morning, she looks remarkably worse. She is having more difficulty breathing and so far, imaging studies have ruled out pulmonary embolus. It appears it is all acute right-sided heart failure secondary to probably a ruptured mitral valve. ASSESSMENT: 1. Acute right-sided heart failure with open tricuspid regurgitation on echocardiogram as well as [id number] mitral regurgitation with possibly cord rupture. I think this is probably what is driving Ms. Sullivan's clinical picture at this point, since most other investigations have ruled out any source of infection or any pulmonary embolus. I think she is in cardiogenic shock secondary to severe valvulopathy. Cardiology is on board. 2. Transaminitis. Liver enzymes continue to get worse. I think this is secondary to congestive hepatopathy and ischemic liver injury. Will continue addressing the underlying heart issues. 3. Microcytic anemia secondary to iron deficiency. 4. Generalized weakness and fatigue. 5. Severe high anion gap metabolic acidosis secondary to lactic acid. Initially , we thought this could be as a result of septic shock. However, though that has not been completely ruled out, I think this is mainly because of hypoperfusion from poor cardiac output. Blood cultures have been done, and the patient has been started on antibiotics. We will also put the patient on low-dose dopamine if needed and await cardiology to see if we can get a SIVAN done on this patient. 6. Acute kidney injury. I think this is cardiorenal in nature. We will, however, do a renal ultrasound and renal studies and follow it up. We will consult Nephrology if she continues to get worse. 7. Anasarca. The patient has bilateral pleural effusion. Has some ascites. Also has fluid in the subcutaneous tissue. I think this is all secondary to congestive heart failure from the right side. We will continue using diuretic therapy. So, in general, I think Ms. Sullivan has been extremely critical today than even yesterday. I think she might probably have severe valvular disease, and I will be pending on further recommendations from Cardiology. I am going to repeat her labs this afternoon, including her BMP looking at her acid-base, her pH. If she continues to get worse, we will probably will have to intubate her. Pulmonary has been consulted. CRITICAL TIME SPENT: 1 hour 30 minutes. cc: Anshu Mark MD MTDTala
[2018-10-13] MEDS ORDERED: NS 250 ML ONE (12:34)
[2018-10-13] MEDS ORDERED: DIPRIVAN 1% ONE (12:39)
[2018-10-13] MEDS: ATIVAN IV PRN ×3 (12:41→16:37)
[2018-10-13 12:44] LABS: ALBUMIN 3.6 g/dL (3.5-5.0); CALCIUM 9.7 mg/dL (8.8-10.2); CREATININE 1.8 mg/dL (0.5-0.9); PHOSPHORUS 6.7 mg/dL (2.7-4.5); POTASSIUM 5.5 mmol/L (3.5-5.1)
--- NOTE | 2018-10-13 13:12 | Diag Imaging Result Doc PS360 ---
EXAM: CHEST-PORTABLE 10/13/2018 HISTORY: ET tube placement NG tube placement TECHNIQUE: AP portable at 1255 COMMENT: There is an endotracheal tube with its tip in the thoracic inlet and an NG tube with its tip in the stomach. The inspiration is suboptimal. There are scattered granulomata. There is atelectasis in the retrocardiac region of the left lower lobe. IMPRESSION: NG tube in the stomach. Endotracheal tube at the thoracic inlet. Electronically signed by Ayo Jordan 10/13/2018 1:10 PM
[2018-10-13] MEDS ORDERED: SODIUM BICARBONATE 8.4% IV ONE (13:15)
--- NOTE | 2018-10-13 13:47 | PROGRESS NOTE ---
DATE: 10/13/2018 SUBJECTIVE: The patient has become progressively ill since admission and over the last 24 hours has progressed with evidence of shock. She started to manifest evidence of acidosis and deteriorating respiratory function, and is now intubated in the intensive care unit. This morning, there was great concern regarding possibility of significant pulmonary emboli and chest CT scan was performed, which was negative. OBJECTIVE: Vital Signs: Blood pressure 95/50, heart rate 70 and irregular with ECG monitor showing atrial fibrillation, oxygen saturation 94% on ventilator. Neck: Jugular venous distention is difficult to appreciate. Chest: Clear to auscultation bilaterally. Cardiac exam: Reveals an irregular rate and rhythm with a soft systolic murmur at the left sternal border. Gallop could not be appreciated. Abdomen: Soft bowel sounds audible. Extremities: Slightly cool and with very mild edema. LABORATORY DATA: Includes a white blood cell count of 19.79, hematocrit 30.4, hemoglobin 9.1, platelet count 179,000. INR 2.8, protime 31.7. Sodium 138, potassium 5.5, chloride 99, carbon dioxide 7, BUN 39, creatinine 1.8, glucose 82, AST 1213, ALT 1064, total bilirubin 1.13. Troponin T 0.019. Pro B-natriuretic peptide level 1263. Albumin 3.6. DIAGNOSTIC STUDIES: Echocardiography reports lower normal left ventricular ejection fraction with abnormal septal motion due to right ventricular dysfunction, enlarged right ventricle with mild global hypokinesis, severe tricuspid regurgitation, abnormal mitral valve with at least moderate mitral regurgitation. Mitral valve abnormal suggesting the possibility of possible flail segment of the posterior leaflet, but this could not be confirmed. IMPRESSION: 1. Atrial fibrillation, recent onset. 2. Progressive shock with right ventricular enlargement and evidence of right-sided heart failure predominating. Hepatic congestion apparent. No evidence of pulmonary emboli. Concern regarding significant mitral regurgitation not completely evident on transthoracic echocardiography. 3. Hypertension. 4. Atherosclerotic coronary disease with previous angioplasty/stenting. 5. Type 2 diabetes mellitus. 6. Hyperlipidemia. RECOMMENDATIONS: 1. Continue efforts to control heart rate with metoprolol and possibly digoxin if needed. 2. Now that the patient is on the ventilator, it would be reasonable to go forward with transesophageal echocardiography to definitively evaluate mitral valve and determine if there is severe mitral regurgitation underlying the patient's shock. This was discussed with the daughter and she wished to proceed. cc: Yoav Eagle MD
[2018-10-13] MEDS: LEVOPHED 8 MG in D5 1/2 NS 250 ML IV SCH (14:40)
--- NOTE | 2018-10-13 14:40 | Diag Imaging Result Doc PS360 ---
EXAM: CHEST-PORTABLE INDICATION: picc line placement TECHNIQUE: One view COMPARISON: 10/13/2018 FINDINGS: The recently placed PICC line is identified. The tip projecting over the lower SVC just superior to the atriocaval junction in the expected position. The ET tube and NG tube are in stable positions. Otherwise, the chest is essentially unchanged. IMPRESSION: Interval placement of right PICC line as described. Stable chest, otherwise. Electronically signed by Audie Chin 10/13/2018 2:38 PM
[2018-10-13] MEDS: MORPHINE IV PRN (15:07)
[2018-10-13 18:02] LABS: URINE SOURCE CATH
[2018-10-13 18:05] LABS: BILIRUBIN URINE NEGATIVE (NEGATIVE); BLOOD URINE NEGATIVE (NEGATIVE); COLOR YELLOW; GLUCOSE URINE NEGATIVE (NEGATIVE); KETONE URINE TRACE mg/dL (NEGATIVE); LEUKOCYTES URINE NEGATIVE (NEGATIVE); NITRITE URINE NEGATIVE (NEGATIVE); PH URINE 5.5; PROTEIN URINE 30 mg/dL (NEGATIVE); SP GRAVITY URINE 1.019; TURBIDITY URINE HAZY (CLEAR); UROBILINOGEN URINE NORMAL (NORMAL)
[2018-10-13 18:08] LABS: UR EPITHELIAL CELLS <10 /HPF (<10); URINE BACTERIA 4+ /HPF; URINE RBC <10 /HPF (<10); URINE WBC <10 /HPF (<10)
[2018-10-13 18:15] LABS: URINE YEAST NONE SEEN
--- NOTE | 2018-10-14 01:07 | CONSULTATION ---
DATE OF CONSULTATION: 10/13/2018 REQUESTING PROVIDER: Anshu Mark MD REASON FOR CONSULTATION: Acute hypoxic respiratory failure. HISTORY OF PRESENT ILLNESS: This is an 83-year-old female with a medical history of coronary artery disease, hypertension, hyperlipidemia, diabetes mellitus type 2 , hypothyroidism and rheumatoid arthritis. The patient presented to the ER on 10/11/2018 with progressively worse near syncope and dizziness for about 2 weeks. She came directly from her PCP, Dr. Milad Méndez's office after EKG revealed a new onset of AFib with RVR. In the ER, her lab data revealed microcystic anemia as well as significant transaminitis and mild acidosis with minimal elevation in anion gap. She has been admitted to the CICU for further evaluation and treatment. During this period of time, patient develops hypotension, significant SOB and worsened palpitation. She has been transferred to the ICU this morning and now is intubated. At the time of my examination, patient's daughter is at bedside. She reports patient has no history of COPD or asthma. Patient recently has poor appetite, SOB, and dizziness, but no cough, chest pain or pedal edema. PAST MEDICAL HISTORY: 1. Coronary artery disease, status post stenting x3, followed by Dr. Hanson. 2. Hyperlipidemia. 3. Hypertension. 4. Type 2 diabetes. 5. Hypothyroidism. 6. Rheumatoid arthritis. PAST SURGICAL HISTORY: 1. Bilateral knee arthroplasty. 2. ORIF right tibial fibula. 3. Coronary stenting. SOCIAL HISTORY: Patient's daughter reports patient has no history of tobacco, alcohol or illicit drug use. FAMILY HISTORY: Mother had dementia. Father had heart condition and stroke. REVIEW OF SYSTEMS: Unable to be obtained. ALLERGIES: Penicillin. PHYSICAL EXAMINATION: Vital Signs: Temperature 96.0 degrees, blood pressure 128/63, pulse 96, respiratory rate 24, oxygen saturation 100% on AC mechanical ventilator with FiO2 60%, TV 450 and PEEP 5. General: Elderly but well nourished. Patient is currently sedated and unresponsive to any verbal or physical stimuli. HEENT: Atraumatic. Trachea midline. ET tube and NG tube in place. Mucosa pink and moist. Respiratory: Diminished breathing sounds bibasilarly. Otherwise clear to auscultation. Cardiovascular: Regular rate and rhythm with irregular rate noted at times. No murmur. Gastrointestinal: Normoactive bowel sounds noted in all 4 quadrants and soft. Extremities: No pedal edema. No cyanosis. No clubbing. Neurologic: Sedated and unresponsive to verbal or physical stimuli. DIAGNOSTIC DATA: Chest x-ray showing scattered granuloma, less optimal inspiration, possible mild degree of left lower lobe atelectasis. CT thorax, abdomen and pelvis revealed edematous changes consistent with anasarca, bilateral pleural effusions, bibasilar atelectasis and ascites; The possibility of ileus cannot be excluded. CT angiogram of thorax and abdomen revealed no evidence of pulmonary embolism. Moderate aortoiliac atherosclerotic calcification with mild atherosclerotic calcification involving the origins of a few of the major branches of the aorta as described. No high grade stenosis is appreciated. LAB DATA: White blood cell 19.79, hemoglobin 9.1, hematocrit 30.4, platelet 179 ,000. Sodium 136, potassium 5.4, chloride 97, carbon dioxide 8, BUN 37, creatinine 1.6, glucose 209, AST 1213, ALT 1064, Alkaline phosphatase 164, pro-BNP 1263. ABG, pH 7.17, pCO2 18, PO2 166, HC03 9.4, base excess -20.0 and oxyhemoglobin 97.7, and lactate 13.80. ASSESSMENT: This is an 83-year-old female with history of coronary artery disease status post stenting x3, hyperlipidemia, hypertension, diabetes mellitus type 2 , hypothyroidism, and rheumatoid arthritis. She has been admitted for a new onset of AFib with RVR, acute right-sided heart failure, transaminitis, severe high anion gap, metabolic acidosis secondary to lactic acid, acute kidney injury and anasarca. 1. Acute right-sided heart failure. 2. Possible septic shock. 3. Acute hypoxemic respiratory failure. 4. Pulmonary embolism rule out. PLAN: 1. Continue diuretic, antibiotics and pressors as prescribed. 2. Routine ABG, chest x-ray CBC, and CMP. 3. Continue mechanical ventilator and start weaning trials when appropriate. 4. Dr. Eagle is consulted. 5. Continue GI and DVT prophylaxis. Thank you for the courtesy of this consult. Dictated by LIZETH Guido for Emy Shaffer MD cc: LIZETH Guido MD [facility]
--- NOTE | 2018-10-14 02:18 | PROGRESS NOTE ---
DATE: 10/13/2018 SUBJECTIVE: The patient was seen in the ICU. Events since last night was noted. The patient apparently has developed respiratory distress, was transferred to the ICU and was intubated. Since then the patient has been on a ventilator, I spoke to the daughter who was present at the bedside. From a GI perspective not much except her LFTs were significantly elevated, her transaminases has jumped up to AST 1213, ALT 1064. Again the patient is unresponsive, sedated and on a ventilator. OBJECTIVE: Vital Signs: Pulse rate was 92 per minute, blood pressure 105/64, and oxygen saturation 100% on ventilator. Otherwise unremarkable. IMPRESSION AND PLAN: Acute hepatitis, most likely ischemic. The patient appears to have shocked liver same etiology or pathology that is involving the rest of the body has affected the liver as well. She is acidotic with a very high lactic acid level. From GI prospective not much needs to be done except managing her other organs and once stabilized liver will also follow the suit. Her Tylenol level was negative and viral hepatitis was ruled out by serology. I discussed the case with the family and explained to them the poor prognosis. cc: Giovani Cortes MD
[2018-10-14 04:56] LABS: ALLEN TEST YES; BLOOD TYPE ARTERIAL; HCO3-(ACT) 17.9 mmoll (20.0-26.0); O2(CT) 15.2 mL/dL (15.0-23.0); O2HB 96.9 % (95.0-99.0); PCO2(98.6) 23 mmHg (35-45); PO2(98.6) 162 mmHg (60-100); SAMPLE BLOOD; SRATE 12 BPM; THB 10.9 g/dL (11.5-17.4); TVOL 450 mL
[2018-10-14 05:00] LABS: MODALITY VENTILATOR
[2018-10-14 06:02] LABS: BASO# 0.01 X1000 (0.0-0.2); EOS# 0.01 X1000 (0.0-0.7); HEMATOCRIT 32.6 % (37.0-47.0); HEMOGLOBIN 10.4 g/dL (12.0-16.0); IMM GRAN% 0.4 % (0.0-0.5); LYMPH# 2.05 X1000 (1.2-3.4); MCH 21.7 PG (27-31); MCHC 31.9 g/dL (33-37); MCV 68.1 FL (81-99); MONO# 1.32 X1000 (0.11-0.59); MONO% 5.1 % (1.7-9.3); NEUT# 22.21 X1000 (1.4-6.5); NEUT% 86.5 % (42.2-75.2); PLT 179 X1000 (130-400); RBC 4.79 XMIL (4.2-5.4); RDW 18.7 % (11.5-14.5)
[2018-10-14 06:18] LABS: ALB/GLOB RATIO 1.3; ALBUMIN 3.2 g/dL (3.5-5.0); CALCIUM 8.8 mg/dL (8.8-10.2); POTASSIUM 4.9 mmol/L (3.5-5.1); TOTAL BILIRUBIN 0.82 mg/dL (0.20-1.00); TOTAL PROTEIN 5.7 g/dL (6.3-8.3)
[2018-10-14] MEDS ORDERED: XYLOCAINE 2% VISCOUS ONE (07:36)
[2018-10-14] MEDS ORDERED: SODIUM CHLORIDE 0.9% 20 ML ONE (07:39)
[2018-10-14] MEDS: ATIVAN IV PRN (07:39)
[2018-10-14] MEDS: MERREM 1 GM in NS 50 ML IV SCH (07:40)
[2018-10-14] MEDS ORDERED: NS 500 ML ONE (07:50)
[2018-10-14] MEDS: MORPHINE IV PRN (08:46)
[2018-10-14] MEDS: LASIX IV SCH (08:52)
[2018-10-14] MEDS: LEVEMIR SUBQ SCH (10:25)
[2018-10-14] MEDS: LOPRESSOR PO SCH ×2 (10:26→20:00)
[2018-10-14] MEDS: LOVENOX SUBQ SCH ×2 (10:26→20:00)
--- NOTE | 2018-10-14 10:40 | NEPHROLOGY CONSULTATION ---
DATE: 10/14/2018 REASON FOR CONSULTATION: Acute kidney injury. HISTORY OF PRESENT ILLNESS: Ms. Sullivan is an 83-year-old, white female, patient of Dr. Méndez. She came to the hospital because of dizziness and atrial fibrillation with rapid ventricular response. She had a bad day yesterday with worsening status. Hypotension, tachycardia, respiratory failure, metabolic acidosis with lactic acidosis. In this context, she required intubation and mechanical ventilation. She had hypotension and required vasopressor support. In that context, she also had a CT angiography of the chest and abdomen which did not demonstrate pulmonary embolus. Since that time urine output has been low and her creatinine has risen to 2.0. On that basis, we are asked to see her in consultation. PAST MEDICAL HISTORY: As above. She also has diabetes, hypertension, hyperlipidemia, hypothyroidism, rheumatoid arthritis. CURRENT MEDICATIONS: 1. Dopamine. 2. Enoxaparin. 3. Furosemide. 4. Insulin. 5. Norepinephrine. 6. Lorazepam. 7. Meropenem. 8. Metoprolol. 9. Morphine. 10. Cyanocobalamin. ALLERGIES: Penicillin SOCIAL, FAMILY AND REVIEW OF SYSTEMS: Otherwise not obtainable. PHYSICAL EXAMINATION: Vital Signs: Blood pressure 87/50, heart rate 85, respirations 15. Afebrile. General: Sedated, intubated. Unresponsive. Skin: Pale and dry. Conjunctivae are pale. Oropharynx is dry. Neck: Supple. Neck veins are distended. Heart: Irregular with a systolic murmur present. Rate controlled. Lungs: Have equal breath sounds. No crackles or wheezes. Abdomen: Soft, nontender. Diminished bowel sounds. No organomegaly. Extremities: Minimal edema. No clubbing or cyanosis. IMPRESSION: Acute kidney injury. Presumably, acute tubular necrosis secondary to sepsis and IV contrast. Her urine output has actually improved and they have recorded 900 mL of urine output on the morning of assessment. We will check urine electrolytes, eosinophils, etc. She had abdominal imaging yesterday with no evidence of obstruction. Her medications have been reviewed. No changes are required at this time. She is receiving IV Lasix for management of decompensated heart failure. Because of this, I will not challenge with IV fluids. Specifically, she has evidence of valvular heart disease which may be acute and may contribute to lower low cardiac output and therefore poor renal perfusion. We will follow with you. cc: Kurt Mullen MD
--- NOTE | 2018-10-14 10:53 | PROGRESS NOTE ---
DATE: 10/14/2018 SUBJECTIVE: Ms. Sullivan is currently intubated, not on any sedation drip. She gets intermittently, Ativan and morphine. Sister was at the bedside at the time of the encounter. Per the nursing staff, night was unremarkable except that they had to go up on the FiO2 because of hypoxemia. OBJECTIVE: Vital signs: Blood pressure is 87/50, pulse is 85, respiration is 18, temperature 98.7 degrees. General: Ms. Sullivan is an 83-year-old female. She is in bed, currently intubated. She is synchronizing well with the ventilator. Mucosa is pink and moist. Anicteric. Acyanotic. Neck: Supple. No JVD. Chest: Air entry is bilaterally reduced. Some crepitations to the posterior lung pearl and transmitted sounds from the ventilator. Cardiovascular: Irregularly, irregular but no murmurs, no rubs, no gallops. Abdomen: Soft. No hepatosplenomegaly. There is an old infraumbilical surgical scar. Extremities: No pedal edema; however, there is edema in the in the thighs. BLOCKERS SKIVER: Patient will grimace to painful stimulation. She would move extremities, like withdrawing from pain. She does have bilateral Babinski positive. LABORATORY DATA: WBC went up to 25.70, hemoglobin is 10.4, platelet count of 179,000. There was no manual differential. Chemistry is also reviewed. Sodium is 139, potassium is 4.9, chloride is 102, bicarb is 14, gap is 23. Creatinine went up to 2.0. AST is up to 1597, AST is also up to 1462. ASSESSMENT: 1. Acute right-sided heart failure with open tricuspid regurgitation and [id number] mitral regurgitation with possible caught rapture on echocardiogram. The patient is status post transesophageal echocardiogram. We are still pending the report. For now, will continue with the gentle diuretic therapy. 2. Transaminitis secondary to ischemic liver injury. 3. Severe high anion gap metabolic acidosis from lactic acid, presumably from cardiogenic shock versus septic shock. 4. Acute kidney injury. This continues to be worsen. The patient is currently oliguric. Presumably, this is due to acute tubular necrosis. We will do urine studies, and we have consulted Nephrology. 5. Anasarca secondary to congestive heart failure, seems to be improving. 6. Atrial fibrillation with rapid ventricular response is currently under control. 7. Hypotension presumably from septic shock versus cardiogenic shock. The patient was on dopamine for some time. However, this has been changed to Levophed. 8. Escherichia coli urinary tract infection. So far, blood cultures have not shown anything. The patient is currently on meropenem. PLAN: So in general, Ms. Sullivan continues to be critically sick. Sister was at the bedside this morning. She does not really know much about her code status. It appears Ms. Sullivan is in shock, could be multifactorial including septic shock as well as cardiogenic shock. She is currently on antibiotics, and she has been seen by multiple subspecialties including Cardiology, Pulmonary Medicine. Will be pending the final SIVAN report to see if the patient has extremely severe valvulopathy that needs any surgical intervention. At that case, cardiology will advise what will be the next step. I am also waiting on Ms. Sullivan's daughter, who is told by the sister, that has the power of fiscal services manager to discuss code status. cc: Anshu Mark MD
[2018-10-14] MEDS ORDERED: ATIVAN IV PRN (10:59)
[2018-10-14] MEDS: ROCEPHIN 1 GM in NS 50 ML IV SCH (11:15)
--- NOTE | 2018-10-14 11:18 | ECHO REPORT ---
ORDER DATE: 10/14/2018 PHYSICIAN: Dr. Christensen REQUESTING PHYSICIAN: CLINICAL INDICATIONS: Suspected severe mitral regurgitation, possible flail mitral valve leaflets. PROCEDURE: Transesophageal echocardiography DESCRIPTION: The patient was in the ICU. She was consented. She was orotracheally intubated. Her throat was anesthetized with Hurricaine, and she received 1 dose of morphine 4 mg. The esophagus was intubated without difficulty. Multiple views of the cardiac structure were obtained. SUMMARY OF MAIN FINDINGS: 1. The left atrium and the appendage were well visualized and are free of thrombus. The interatrial septum appears to be intact. 2. Right atrium appears to be mildly enlarged. 3. The tricuspid valve shows a severe regurgitation with possibly a septal leaflet malfunction. 4. No endocardial vegetation is noted. 5. Right ventricle appears to be mildly enlarged with slightly decreased function. 6. Pulmonic valve is unremarkable. 7. Aortic valve has 3 cusps with some sclerosis of them. There is no regurgitation or stenosis. 8. Aortic root is not dilated. 10.Left ventricle shows good contractility. 11.The pulmonary venous flow shows normal pattern on the right pulmonary vein. 12.Agitated saline was injected, and there was no evidence of right to left crossing of bubbles. 13.The mitral valve shows a moderate to moderately severe degree of regurgitation. Using continuous wave Doppler (V max of MR jet) and the pressure measured at her right brachial artery, the LVeDP is estimated at 6 mmHg which is somewhat low. 14.There is no evidence of significant pericardial effusion. 15.There is some mild degree of diffuse atherosclerotic plaque in the descending thoracic aorta and the aortic arch without any mobile element or debris or ulceration. CONCLUSIONS: In summary, this study shows: 1. Moderate to moderately severe degree of mitral regurgitation. 2. Severe tricuspid regurgitation. 3. Preserved left ventricular systolic function. 4. No aortic stenosis. No regurgitation. 5. No evidence of atrial shunt. 6. Possibly disruption of the septal leaflet of the tricuspid valve. 7. Mild degree of diffuse atherosclerotic plaque in aorta. Clinical correlation recommended. The patient tolerated the procedure well. cc: MD Yoav Talavera MD [facility] [place] [facility]
--- NOTE | 2018-10-14 11:59 | PULMONOLOGY PROGRESS NOTE ---
DATE: 10/14/2018 SUBJECTIVE: Patient is sedated. She responds to pain, but not to voice. OBJECTIVE: Vital Signs: Blood pressure 102/62, heart rate 86, respiratory rate 12, oxygen saturation 100% on 70% FiO2. HEENT: Pupils are equal. Oropharynx appears dry. Neck: Supple. Chest: Reveals clear air entry bilaterally. No wheezing. No rhonchi. No tactile fremitus. Cardiac: S1, S2. A 2-3/6 diastolic murmur at left lower sternal border. Abdomen: Soft. Extremities: Warm to the touch. LABORATORIES: Arterial blood gas reveals a pH of 7.40, pCO2 of 63, pO2 of 162. Lactate has decreased to 4.5. White blood count 25.70, hemoglobin 10.4, platelet count 179,000. Microbiology reveals E coli. Blood cultures are negative to date. Chemistries: Sodium 139, potassium 4.9, chloride 102, bicarbonate 14, anion gap 23 and decreasing, BUN 55, creatinine 2.0, glucose 143. AST 1597 and slightly increased. IMPRESSION: An 83-year-old white female, who presented with atrial fibrillation with rapid ventricular response and went into cardiogenic shock. The patient does have a urinary tract infection, but is rapidly improving. The patient has evidence of acute renal failure associated with this shock and contrast for the CT pulmonary angiogram. She has evidence of acute shock- induced hepatitis. Hemodynamically, she appears to be improving. Her lactate is resolving. Her heart rate is well controlled. Her oxygen requirements are decreasing. Although the transesophageal echocardiogram is pending, I suspect that she had a rate-related heart failure and hopefully with rate control, her acute organ injury will resolve. RECOMMENDATIONS: 1. Continue ventilatory support and wean as tolerated. 2. Continue antibiotics for urinary tract infection. 3. Rate control per surgery. 4. Daily weaning. TIME SPENT CRITICAL CARE: 30 plus minutes. cc: Marshall Ruiz MD
--- NOTE | 2018-10-14 12:06 | Diag Imaging Result Doc PS360 ---
EXAM: CHEST/ABD TUBE PLACEMENT HISTORY: NG tube placement TECHNIQUE: Chest abdomen single view 10/13/2018 COMPARISON: None. FINDINGS: Nasogastric tube overlies the esophagus and stomach. The tip lies near the normal location of the duodenum. IMPRESSION: Nasogastric tube in good position. Electronically signed by Laron Duvall 10/14/2018 12:03 PM
[2018-10-14 12:11] LABS: UR CREAT RANDOM 103.9 mg/dL (11-20)
--- NOTE | 2018-10-14 13:30 | PROGRESS NOTE ---
DATE: 10/14/2018 SUBJECTIVE: Patient was seen with Dr. Cortes. Patient is still in the ICU intubated on mechanical ventilation. She has family at the bedside. OBJECTIVE: Vital Signs: Temperature 98.6 degrees, pulse of 91, respirations 13, blood pressure 82/56. General: Patient is intubated on mechanical ventilation. LABORATORY: 1. Hematology: WBC 25.70, hemoglobin 10.4, hematocrit 32.6, MCV 68.1, platelet 179. Chemistry: Sodium 139, potassium 4.9, chloride 102, CO2 14. BUN 55, creatinine 2.0, glucose 143. AST 1597, ALT 1463, alkaline phosphatase 170. Patient has had a transesophageal echocardiogram today; results are pending. Dr. Eagle is following. 2. Acute kidney injury. 3. Elevated liver function tests. Patient had significant increase in her liver function tests yesterday and today, most likely related to ischemic injury/shock liver. We will continue to follow liver function tests and hopefully we will see improvement. Patient has been seen by Dr. Cortes. He has also discussed case with Dr. Eagle. We will continue to follow and further plans will be made according to her progress. Dictated by LIZETH Jackson for Giovani Cortes MD cc: LIZETH Lenz MD
--- NOTE | 2018-10-14 13:41 | Diag Imaging Result Doc PS360 ---
US RENAL 2 (RETROPER) COMPLETE - 10/14/2018 INDICATION: tiago/arf TECHNIQUE: COMPARISON: None FINDINGS: The exam is very challenging due to the patient's condition. The kidneys are grossly normal. No mass or obstruction. The right kidney measures 10.1 x 4.6 cm. The left kidney measures 9 x 5.2 cm. There is a Nolasco catheter in the urinary bladder which otherwise appears normal. IMPRESSION: Negative exam. Electronically signed by Moisés Grajeda 10/14/2018 1:39 PM
[2018-10-14] MEDS: LEVOPHED 8 MG in D5 1/2 NS 250 ML IV SCH (19:04)
[2018-10-15] MEDS: MORPHINE IV PRN ×2 (03:15→08:07)
[2018-10-15 04:55] LABS: ALLEN TEST YES; BE -8.9 mmoll (-3.0-3.0); BLOOD TYPE ARTERIAL; METHB 1.1 % (0.0-1.5); O2(CT) 16.1 mL/dL (15.0-23.0); O2HB 95.5 % (95.0-99.0); PCO2(98.6) 30 mmHg (35-45); PO2(98.6) 99 mmHg (60-100); SAMPLE BLOOD; SAO2 97.9 % (95.0-100.0); SRATE 8 BPM; THB 11.9 g/dL (11.5-17.4); TVOL 700 mL; pH(98.6) 7.33 (7.35-7.45)
[2018-10-15 04:56] LABS: MODALITY VENTILATOR
[2018-10-15 06:23] LABS: BASO# 0.02 X1000 (0.0-0.2); BASO% 0.1 % (0.0-0.8); EOS# 0.02 X1000 (0.0-0.7); EOS% 0.1 % (0.0-10.0); HEMATOCRIT 35.4 % (37.0-47.0); HEMOGLOBIN 11.6 g/dL (12.0-16.0); IMM GRAN# 0.07 X1000 (0.0-0.04); IMM GRAN% 0.4 % (0.0-0.5); LYMPH# 1.85 X1000 (1.2-3.4); LYMPH% 10.3 % (20.5-51.1); MCH 21.8 PG (27-31); MCHC 32.8 g/dL (33-37); MCV 66.4 FL (81-99); MONO# 1.07 X1000 (0.11-0.59); NEUT# 14.86 X1000 (1.4-6.5); NEUT% 83.1 % (42.2-75.2); PLT 238 X1000 (130-400); RBC 5.33 XMIL (4.2-5.4); WBC 17.89 X1000 (4.8-10.8)
[2018-10-15 07:00] LABS: ALBUMIN 2.7 g/dL (3.5-5.0); CALCIUM 8.7 mg/dL (8.8-10.2); CREATININE 2.7 mg/dL (0.5-0.9); MAGNESIUM 2.6 mg/dL (1.5-2.7); PHOSPHORUS 5.2 mg/dL (2.7-4.5); POTASSIUM 4.3 mmol/L (3.5-5.1); TOTAL BILIRUBIN 0.74 mg/dL (0.20-1.00); TOTAL PROTEIN 5.3 g/dL (6.3-8.3)
[2018-10-15 07:35] LABS: LYMPHS 8 % (21-51); MONO 8 % (1-9); SEGS 80 % (42-75)
[2018-10-15 07:38] LABS: ANISOCYTOSIS 4+
--- NOTE | 2018-10-15 08:03 | PROGRESS NOTE ---
DATE: 10/15/2018 SUBJECTIVE: This morning, Ms. Sullivan seems to be fairly stable, still intubated, but she was responding a little bit more to me than yesterday. OBJECTIVE: Vital Signs: Blood pressure is 101/68, pulse is 92, respiration is 11, temperature is 98.6 degrees. General: Ms. Sullivan is an 83-year-old female. She is in bed. She is intubated and seems to be synchronizing well with the ventilator. Mucosa is pink and moist. Anicteric. Acyanotic. Neck is supple. No JVD. Chest: Good air entry bilaterally. A few crackles posteriorly. Cardiovascular: Irregular irregularly but no murmurs. GI : Abdomen soft. No hepatosplenomegaly. There is an old infraumbilical surgical scar. Extremities: No pedal edema, however, there might be some edema in the upper thighs. 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 Will open her eyes to her name, will grimace to painful stimulation and will withdraw to painful stimulation. LABORATORY DATA: WBC is down to 17.89, hemoglobin is 11.6, platelet count of 238. pH is 7.33, pCO2 is 30, PaO2 is 99. Sodium is 138, potassium is 4.3, chloride is 100, bicarb is 16, creatinine went up to 2.7. AST is down to 688, ALT is down to 180. The urinalysis did show some eosinophils in the urine. It also did show that the urine sodium was 10. ASSESSMENT: 1. Acute right heart failure secondary to severe tricuspid and moderate-to- severe mitral regurgitation. 2. Transaminitis secondary to ischemic liver injury. 3. Acute kidney injury with unremarkable renal ultrasound. So far, FENA is 0.138. Fractional excretion of BUN is 9.9. Both are consistent with intravascular depletion. However, the patient also did have eosinophils in the urine, which though nonspecific will be concerning for interstitial nephritis. The patient's urine output continues to be on the low side. I think at some point, we might be able to challenge her with fluids when her cardiac status is more stabilized. The patient is being seen by Nephrology, and I will be waiting on their further recommendations on this. 4. Anasarca, improving. 5. Atrial fibrillation with RVR, currently rate controlled. 6. Hypotension presumably from cardiogenic shock. However, septic shock is also a possibility. The patient is currently on antibiotics and Levophed. Blood pressures are better than the days before. 7. Escherichia coli urinary tract infection antibiotics have been changed to ceftriaxone. Repeat urine culture is negative. PLAN: In general, I think Ms. Sullivan seems more stable today than yesterday. Heart rate is under control. Blood pressures are slightly better, and she seems to be engaging more. In terms of her fluid status, she seems to be less overloaded than yesterday. We are going to continue with the current antibiotic coverage. Her creatinine, however, has gone up, and I will be waiting on nephrology for their recommendations on that. cc: Anshu Mark MD MTDD
[2018-10-15] MEDS: LASIX IV SCH (08:07)
[2018-10-15] MEDS: LOPRESSOR PO SCH ×2 (08:07→20:49)
[2018-10-15] MEDS: LOVENOX SUBQ SCH ×2 (08:08→20:49)
[2018-10-15] MEDS: LEVEMIR SUBQ SCH (08:13)
[2018-10-15] MEDS ORDERED: INSULIN PEN NEEDLES ONE (08:15)
--- NOTE | 2018-10-15 08:53 | Diag Imaging Result Doc PS360 ---
CHEST-PORTABLE - 10/15/2018 INDICATION: dyspnea COMPARISON: 10/14/2018 FINDINGS: Stable endotracheal tube, nasogastric tube and right PICC line in good position. There is some worsening atelectasis at the right lower lobe with volume loss and obscuration of the diaphragm. No other new infiltrates. Stable cardiomegaly. IMPRESSION: Moderate atelectasis of the right lower lobe. Otherwise no complication or change from prior. Electronically signed by Moisés Grajeda 10/15/2018 8:51 AM
[2018-10-15] MEDS: ROCEPHIN 1 GM in NS 50 ML IV SCH (10:34)
--- NOTE | 2018-10-15 13:01 | PROGRESS NOTE ---
DATE: 10/15/2018 SUBJECTIVE: The patient remains intubated on mechanical ventilation. OBJECTIVE: Vital Signs: Temperature 97.0 degrees pulse 102, blood pressure 104/55. LABORATORY: Hematology: WBC 17.89, hemoglobin 11.6, hematocrit 35.4, MCV 66.4, platelets 238. Chemistry: Sodium 138, potassium 4.3, chloride 101, CO2 16. BUN 78, creatinine 2.7, glucose 246, total bilirubin 0.74. AST 688 ALT 1080, alkaline phosphatase 166. ASSESSMENT AND PLAN: 1. Heart failure secondary to severe tricuspid and mitral regurgitation. 2. Acute kidney injury following labs. 3. Elevated liver function tests, most likely related to ischemic liver injury. Her numbers have improved slightly today. Will continue to follow. 4. Respiratory failure on mechanical ventilation. Will continue to follow and further plans to be made according to her progress. I will discuss this case with Dr. Cortes. Dictated by LIZETH Jackson for Giovani Cortes MD cc: LIZETH Lenz MD
--- NOTE | 2018-10-15 14:34 | NEPHROLOGY PROGRESS NOTE ---
DATE: 10/15/2018 SUBJECTIVE: She is sedated and intubated. OBJECTIVE: Blood pressure 104/55, heart rate 102, respiratory rate 10 and afebrile. Intake 500 mL and output 255 mL. General: Sedated and intubated. No distress. Skin: Pale and dry. HEENT: Conjunctivae are pink. Oropharynx is dry. Neck: Veins are distended. Heart: Regular with gallop. Lungs: Equal. No crackles or wheezes. Abdomen: Soft and nontender. Bowel sounds are diminished. Extremities: 1+ edema. No clubbing or cyanosis. IMPRESSION: Acute kidney injury. ATN. BUN and creatinine continue to rise and urine volume is low. We were not aggressive with IV fluids because of her cardiac status. If it is acceptable to cardiology, then from a nephrology perspective I certainly would like to increase her fluid intake. Again, I will defer that decision until she has been evaluated by cardiology today. Electrolytes are acceptable. She does have a moderate metabolic acidosis, but it is improving, and her anion gap is falling. Her lactate level is now only 2.3. cc: Kurt Mullen MD MTDD
--- NOTE | 2018-10-15 14:55 | PULMONOLOGY PROGRESS NOTE ---
DATE: 10/15/2018 SUBJECTIVE: The patient has received some Ativan and morphine for sedation. She appears to be comfortable on mechanical ventilation. Her Levophed is now on standby. OBJECTIVE: Heart rate 99, blood pressure 120/63, respiratory rate 16 and unlabored, oxygen saturation 100%. She has been afebrile for the last 24 hours. HEENT: Pupils are equal and reactive. Oropharynx is clear. Neck is supple. Chest reveals decreased breath sounds right base. Cardiac exam S1-S2 abdomen is soft without hepatosplenomegaly. Extremities reveal 1+ edema in the hands and ankles. LABORATORIES: Arterial blood gas reveals a pH of 7.33, pCO2 of 30, PO2 of 90 with a lactate of 2.3. Sodium 138, potassium 4.3, chloride 101, bicarbonate 16. BUN 78, creatinine 2.7. ALT 1080. Chest x-ray reveals atelectasis with some increased effusion right base and stable cardiomegaly. SIVAN reveals [id number] severe MR, severe TR, possible disruption of the tricuspid valve. IMPRESSION: An 83-year-old with atrial fibrillation and rapid ventricular response. Multivalvular heart disease, pleural effusion. Acute hypoxemic respiratory failure, acute renal failure, shock-induced hepatitis. Her lactic acidosis is resolving. Her hepatitis is improving. She continues to have some renal insufficiency. RECOMMENDATIONS: 1. Initiate a spontaneous breathing trial to evaluate for possible extubation. 2. Continue antibiotics for urinary tract infection. 3. Continue rate control per Cardiology. 4. Additional recommendations pending hospital course. Time spent in critical care management: 30+ minutes cc: Marshall Ruiz MD [facility]
[2018-10-15] MEDS: HUMULIN R SUBQ SCH (20:59)
[2018-10-16 04:37] LABS: ALLEN TEST YES; BLOOD TYPE ARTERIAL; HCO3-(ACT) 20.2 mmoll (20.0-26.0); O2(CT) 14.2 mL/dL (15.0-23.0); O2HB 96.4 % (95.0-99.0); PCO2(98.6) 32 mmHg (35-45); PO2(98.6) 79 mmHg (60-100); SAMPLE BLOOD; THB 10.4 g/dL (11.5-17.4); pH(98.6) 7.37 (7.35-7.45)
[2018-10-16 04:39] LABS: BASO# 0.01 X1000 (0.0-0.2); BASO% 0.1 % (0.0-0.8); EOS# 0.05 X1000 (0.0-0.7); EOS% 0.4 % (0.0-10.0); IMM GRAN# 0.04 X1000 (0.0-0.04); IMM GRAN% 0.4 % (0.0-0.5); LYMPH# 1.28 X1000 (1.2-3.4); LYMPH% 11.4 % (20.5-51.1); MCH 21.8 PG (27-31); MCHC 33.3 g/dL (33-37); MCV 65.5 FL (81-99); MONO# 1.11 X1000 (0.11-0.59); MONO% 9.8 % (1.7-9.3); MPV 11.6 FL (7.4-10.4); NEUT# 8.78 X1000 (1.4-6.5); NEUT% 77.9 % (42.2-75.2); PLT 197 X1000 (130-400); RBC 5.04 XMIL (4.2-5.4); RDW 18.7 % (11.5-14.5); WBC 11.27 X1000 (4.8-10.8)
[2018-10-16 04:42] LABS: MODALITY VENTILATOR
[2018-10-16 05:05] LABS: CALCIUM 8.8 mg/dL (8.8-10.2); CREATININE 3.2 mg/dL (0.5-0.9); POTASSIUM 4.1 mmol/L (3.5-5.1)
[2018-10-16 05:24] LABS: ANISOCYTOSIS 4+; LYMPHS 12 % (21-51); MONO 8 % (1-9); NRBC 1 % (0-0); SEGS 80 % (42-75)
[2018-10-16] MEDS: HUMULIN R SUBQ SCH ×4 (06:16→20:30)
--- NOTE | 2018-10-16 07:34 | Diag Imaging Result Doc PS360 ---
CHEST-PORTABLE - 10/16/2018 INDICATION: dyspnea COMPARISON: 10/15/2018 FINDINGS: Stable endotracheal tube, nasogastric tube, and right PICC line. Stable bilateral lower lobe infiltrates or effusions. Stable cardiomegaly. Pulmonary vascularity remains normal. IMPRESSION: No change from prior. Electronically signed by Moisés Grajeda 10/16/2018 7:31 AM
[2018-10-16] MEDS: LASIX IV SCH (08:49)
[2018-10-16] MEDS: LOPRESSOR PO SCH ×2 (08:49→20:35)
[2018-10-16] MEDS: LEVEMIR SUBQ SCH (08:49)
[2018-10-16] MEDS: LOVENOX SUBQ SCH ×2 (08:49→20:35)
[2018-10-16 09:46] LABS: ALBUMIN 2.5 g/dL (3.5-5.0); DIRECT BILIRUBIN 0.2 mg/dL (0.00-0.20); TOTAL BILIRUBIN 0.61 mg/dL (0.20-1.00)
[2018-10-16] MEDS: ROCEPHIN 1 GM in NS 50 ML IV SCH (09:59)
[2018-10-16] MEDS: PROTONIX IV SCH (09:59)
--- NOTE | 2018-10-16 10:09 | PROGRESS NOTE ---
DATE: 10/16/2018 SUBJECTIVE: This morning Ms. Sullivan continues to be fairly stable. Still intubated but going through spontaneous breathing trials. Currently on just CPAP mode. OBJECTIVE: Vital signs: Blood pressure is 103/57, pulse is 93, respiration is 14. The patient is saturating 100% on mechanical ventilation. General: Ms. Sullivan is an 83-year-old female. She is in bed, intubated, seems to be doing fairly okay. HEENT: Mucosa is pink and moist. Anicteric. Acyanotic. Neck: Supple. No JVD. Respiratory: There is a good air entry bilaterally. A few crackles posteriorly. Cardiovascular: Irregularly irregular but no murmurs and no gallops. GI: Abdomen is soft, nontender. Bowel sounds present. There is an old infraumbilical surgical scar. Extremities: No pedal edema. There is minimal edema of the upper thighs. 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 Will open her eyes to her name, but she would not follow any commands. LABORATORY DATA: WBC is 11.27, hemoglobin is 11.0, platelet count of 197,000. Sodium is 139, potassium is 4.1, chloride is 104, bicarb is 18, creatinine is 3.2. The patient's I's and O's, urine output was 275. She is still positive balance of 1,043. ASSESSMENT: 1. Acute congestive heart failure, predominantly right side, associated with severe tricuspid regurgitation and moderate to severe mitral regurgitation. 2. Transaminitis secondary to ischemic liver injury. This seems to be improving. We will repeat the LFTs this morning and follow up accordingly. 3. Acute kidney injury. Renal function continues to look worse. The patient is being seen by Nephrology. 4. Anasarca, improving. 5. Atrial fibrillation with rapid ventricular response, currently rate controlled. 6. Hypotension, presumably from cardiogenic shock. The patient is off pressors and blood pressures are sustaining. 7. Escherichia coli urinary tract infection. We will continue with current antibiotics. PLAN: So in general I think Ms. Sullivan seems to be getting better. She is currently on CPAP mode, going through spontaneous breathing trial. Hopefully, we can get her of the vent and go from there. cc: Anshu Mark MD
--- NOTE | 2018-10-16 13:36 | PULMONOLOGY PROGRESS NOTE ---
DATE: 10/16/2018 SUBJECTIVE: The patient is arousable to name. She has been on a breathing trial since yesterday morning. OBJECTIVE: Vital signs: The patient has been afebrile for the last 24 hours. Blood pressure 106/64, heart rate 109, respiratory rate 13, oxygen saturation 100%. HEENT: Pupils are equal and reactive. Oropharynx is clear. Neck: Supple. Chest: Reveals decreased breath sounds right greater than left base. Cardiac: S1, S2. Abdomen: Soft. Extremities: Reveal trace edema. LABORATORIES: Sodium 139, potassium 4.1, chloride 104, bicarbonate 18, BUN 94, creatinine 3.2. Arterial blood gas, pH 7.37, pCO2 of 32, PO2 of 79, with a normal lactate. Chest x-ray reveals bilateral lower lobe infiltrates/effusions, right greater than left, with cardiomegaly. IMPRESSION: This is an 83-year-old with atrial fibrillation, rapid ventricular response, multivalvular heart disease, acute hypoxemic respiratory failure, acute renal failure, shock induced hepatitis, and pleural effusions. Her lactic acidosis has resolved. She continues to have some progression of her renal insufficiency/renal failure. She has been on a spontaneous breathing trial overnight. She will be extubated this morning and followed expectantly. PLAN: 1. Extubation this morning. 2. Continue antibiotics for urinary tract infection. 3. Prognosis is guarded with her multivalvular heart disease. She is at risk for failing extubation due to the valvular heart disease and due to the progression of her renal failure. CRITICAL CARE TIME: Time spent in critical care, 30+ minutes. cc: Marshall Ruiz MD
--- NOTE | 2018-10-16 23:23 | PROGRESS NOTE ---
DATE: 10/16/2018 Patient remains intubated and on ventilator. Overall patient is stable. LFTs are trending down. IMPRESSION: Shock liver/ischemic hepatitis overall numbers are improving, at this point no new suggestion, continue current treatment. cc: Giovani Cortes MD
[2018-10-17] MEDS: MORPHINE IV PRN (03:18)
[2018-10-17 04:45] LABS: ALLEN TEST YES; BE -1.9 mmoll (-3.0-3.0); BLOOD TYPE ARTERIAL; HCO3-(ACT) 23.4 mmoll (20.0-26.0); METHB 0.8 % (0.0-1.5); O2(CT) 15.5 mL/dL (15.0-23.0); O2HB 96.9 % (95.0-99.0); PCO2(98.6) 34 mmHg (35-45); PO2(98.6) 137 mmHg (60-100); SAMPLE BLOOD; SAO2 99.4 % (95.0-100.0); THB 11.2 g/dL (11.5-17.4); pH(98.6) 7.42 (7.35-7.45)
[2018-10-17 04:46] LABS: MODALITY COOL AEROSOL
[2018-10-17] MEDS ORDERED: D50W SYRINGE IV ONE (05:46)
[2018-10-17] MEDS ORDERED: D50W SYRINGE ONE (05:48)
[2018-10-17 06:29] LABS: EOS# 0.07 X1000 (0.0-0.7); EOS% 0.8 % (0.0-10.0); HEMATOCRIT 33.1 % (37.0-47.0); HEMOGLOBIN 10.9 g/dL (12.0-16.0); IMM GRAN# 0.03 X1000 (0.0-0.04); IMM GRAN% 0.3 % (0.0-0.5); LYMPH# 1.31 X1000 (1.2-3.4); LYMPH% 14.4 % (20.5-51.1); MCH 21.5 PG (27-31); MCHC 32.9 g/dL (33-37); MCV 65.3 FL (81-99); MONO# 1.37 X1000 (0.11-0.59); MONO% 15.1 % (1.7-9.3); NEUT% 69.4 % (42.2-75.2); PLT 156 X1000 (130-400); RBC 5.07 XMIL (4.2-5.4); RDW 18.9 % (11.5-14.5); WBC 9.08 X1000 (4.8-10.8)
[2018-10-17] MEDS: HUMULIN R SUBQ SCH ×4 (06:39→20:24)
[2018-10-17 07:03] LABS: LYMPHS 8 % (21-51); MONO 2 % (1-9); SEGS 88 % (42-75)
--- NOTE | 2018-10-17 07:04 | Diag Imaging Result Doc PS360 ---
EXAM: CHEST-PORTABLE HISTORY: dyspnea TECHNIQUE: Portable chest single view COMPARISON: 10/16/2018 FINDINGS: Poor inspiratory effort. The endotracheal tube has been removed. No change in the nasogastric tube or right-sided PICC line. Interval decrease in the size of the right pleural effusion. There is a small left pleural effusion. There are scattered granuloma. Mild central vascular prominence. IMPRESSION: Slight interval improvement. Electronically signed by Laron Duvall 10/17/2018 7:02 AM
[2018-10-17] MEDS: LEVEMIR SUBQ SCH (08:05)
[2018-10-17] MEDS: LASIX IV SCH (08:17)
[2018-10-17] MEDS: LOVENOX SUBQ SCH ×2 (08:17→20:24)
[2018-10-17] MEDS: LOPRESSOR PO SCH ×2 (08:18→20:24)
[2018-10-17 08:24] LABS: ALB/GLOB RATIO 1.1; ALBUMIN 2.6 g/dL (3.5-5.0); CREATININE 2.1 mg/dL (0.5-0.9); POTASSIUM 3.6 mmol/L (3.5-5.1); TOTAL BILIRUBIN 0.77 mg/dL (0.20-1.00)
[2018-10-17] MEDS: PROTONIX IV SCH (08:46)
[2018-10-17] MEDS: SODIUM CHLORIDE 0.9% INJ SCH (08:46)
[2018-10-17] MEDS: CARDIZEM PO SCH ×3 (09:13→20:24)
[2018-10-17] MEDS: ROCEPHIN 1 GM in NS 50 ML IV SCH (09:47)
[2018-10-17 09:59] LABS: ALLEN TEST YES; BE -0.6 mmoll (-3.0-3.0); BLOOD TYPE ARTERIAL; HCO3-(ACT) 24.4 mmoll (20.0-26.0); METHB 1.1 % (0.0-1.5); O2(CT) 15.4 mL/dL (15.0-23.0); O2HB 95.6 % (95.0-99.0); PCO2(98.6) 34 mmHg (35-45); PO2(98.6) 87 mmHg (60-100); SAMPLE BLOOD; SAO2 97.9 % (95.0-100.0); THB 11.4 g/dL (11.5-17.4); pH(98.6) 7.44 (7.35-7.45)
[2018-10-17 10:00] LABS: MODALITY COOL AEROSOL
--- NOTE | 2018-10-17 10:16 | PROGRESS NOTE ---
DATE: 10/17/2018 SUBJECTIVE: This morning Ms. Sullivan is slightly altered, not following a lot of commands, but she has been extubated since yesterday and seems to be tolerating well the face mask for adequate oxygenation. OBJECTIVE: Vital signs: Blood pressure is 145/86, pulse is 113, respiration is 12, temperature 97.9 degrees, patient is saturating 98% on face mask. General: Ms. Sullivan is an 83-year-old female. She is in bed. She did not seem to be in any cardiopulmonary distress. HEENT: Mucosa is pink and moist. Anicteric, acyanotic. Neck: Supple. No JVD. Respiratory System: Air entry is bilaterally reduced. There are some crepitations posteriorly. Cardiovascular: Irregularly irregular. No murmurs, no gallops. Abdomen: Soft. Bowel sounds are present. There is an old infraumbilical surgical scar. Extremities: About trace pedal edema. There is also some edema on the lateral aspect of the thigh and the abdominal wall. 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 She will open her eyes to her name. She does not really follow commands, but she will move very actively from painful stimulation. LABORATORY DATA: WBC is down to 9.08, hemoglobin is 10.9, platelet count of 156,000. Chemistry is also reviewed. Creatinine is down to 2.1. AST and ALT are on a downward trend. DIAGNOSTIC STUDIES: A chest x-ray this morning shows slight interval improvement. PATIENT MEDICATIONS: All have been reviewed today. ASSESSMENT: 1. Acute congestive heart failure, predominantly right-sided failure associated with severe valvulopathy (severe tricuspid regurgitation and moderate to severe mitral regurgitation). Cardiology is on board. 2. Transaminitis secondary to shock liver. LFTs are on downward trend. 3. Nonoliguric acute kidney injury. We think this is related with cardiorenal syndrome. Kidney function seems to be improving, with improvement in the cardiac status. 4. Atrial fibrillation with rapid ventricular response. The patient continues to be a little bit on the higher end of heart rate. She is getting metoprolol. We have added Cardizem p.o. 5. Hypotension secondary to cardiogenic shock, improved. Patient is currently off pressors. 6. E. Coli urinary tract infection. WBC is normalized. The patient is on ceftriaxone. Today is date 3. We will plan to continue this for a total of 7 days. 7. Altered mental status. I think this is all narcotic and opioid induced from when patient was under the ventilator. We will give her some sufficient time for these medications to be excreted and re-evaluate her neurological status. PLAN: So in general, Ms. Sullivan has been admitted since 10/11/2018. Today is day 6 of admission. She got admitted initially because of dizziness and abnormal EKG sent from her primary care doctor (Dr. Milad Méndez). The patient was in atrial fibrillation, RVR when she came to the hospital. She was initially admitted to [facility]. However, during the hospital course, she went into acute fulminant right-sided heart failure and had to be intubated. She seems to have progressively improved. She is now extubated. Today is day 1 post extubation. She is doing fairly stable. She is now mildly altered from mentation standpoint and I think it is because of the sedation under the ventilator. We will continue her observation here in the ICU today. We will add Cardizem p.o. for better heart rate control. We will also start her back on her nutritional support, re-evaluate her tomorrow and make a decision accordingly. cc: Anshu Mark MD
--- NOTE | 2018-10-17 11:11 | NEPHROLOGY PROGRESS NOTE ---
DATE: 10/17/2018 SUBJECTIVE: Patient currently resting in bed. She is awake. OBJECTIVE: Vital Signs: Temperature 97.1 degrees, pulse 112, respiratory rate 14, blood pressure 128/87. General: This is an elderly female, currently resting in bed. She is awake, she does not interact or follow commands. HEENT: Normocephalic, atraumatic. DAAMRIS. Neck: Supple. She continues with positive JVD in a reclined position. Cardiovascular: Regular rate and rhythm with a gallop. Occasionally tachycardic. Pulmonary: She has some rhonchi bilaterally. Equal excursion. Abdomen: Soft, with positive bowel sounds. : Nolasco catheter, light yellow urine. Extremities: Continues with 1+ edema. Integumentary: Skin is warm and dry otherwise. INPUT AND OUTPUT: Intake 260 mL. Output 1.6 L. Yesterday her output was 275 mL. LAB DATA: WBC of 9, hemoglobin 10.8, sodium 140, potassium 3.6, CO2 21, creatinine 2.1 (3.2). ASSESSMENT AND PLAN: 1. Acute kidney injury/acute tubular necrosis. Her urine output has picked up as well as creatinine has stabilized and improved a point overnight. She has no indications for intervention other than her current treatment plan. We will continue this. Continue to monitor. 2. Electrolytes, acid-base balance anemia. These are all stable. 3. Acidosis, resolved. 4. Congestive heart failure, followed by primary and Cardiology. Dictated by LIZETH Hillman for Kurt Mullen MD Face to face encounter, data reviewed, discussed with Tray Bateman on 10/17/18. I agree with the above assessment and plan of care. cc: Kurt Mullen MD [facility]
--- NOTE | 2018-10-17 13:35 | PROGRESS NOTE ---
DATE: 10/17/2018 SUBJECTIVE: Patient extubated and on nasal cannula oxygen presently. She is somewhat groggy. She does respond to verbal, but seems confused. OBJECTIVE: Vitals: Blood pressure 109/80, heart rate 95 with ECG monitor showing atrial fibrillation. Oxygen saturation 99%. Neck: Neck vein distention cannot be appreciated. Chest: Clear to auscultation. Cardiac: Reveals an irregular rate and rhythm. No murmur or gallop could be appreciated. Extremities: Without edema. LABORATORY DATA: Includes a white blood cell count 9.08, hematocrit 33.1, hemoglobin 10.9, platelet count 156,000. Sodium 140, potassium 3.6, chloride 104, carbon dioxide 21, BUN 83, creatinine 2.1, glucose 131, AST 140, ALT 488, albumin 2.6. IMPRESSION: 1. Acute on chronic congestive heart failure, predominantly right-sided, associated with severe tricuspid regurgitation and moderate mitral regurgitation. Patient clinically improving with gentle diuresis and supportive care. No evidence of pulmonary emboli. It may be that compensated right-sided heart failure due to severe tricuspid regurgitation was destabilized by shinto of atrial fibrillation. 2. Elevated serum transaminases probably related to congestive heart failure. This is improving with stabilization. 3. Nonoliguric acute renal dysfunction. This is likely cardiorenal syndrome and is also improving. 4. Atrial fibrillation with rapid ventricular rate. Heart rate now controlled. 5. Urinary tract infection with Escherichia coli. RECOMMENDATIONS: 1. Continue current gentle diuresis with IV Lasix daily. 2. Continue rate control and anticoagulation with Lovenox. 3. Conservative cardiovascular management overall. cc: Yoav Eagle MD
--- NOTE | 2018-10-17 19:22 | PROGRESS NOTE ---
DATE: 10/17/2018 SUBJECTIVE: The patient was resting. She has been extubated. She has family at the bedside. OBJECTIVE: Vital Signs: Temperature 97.6, pulse 104, respirations 16, blood pressure 121/62, General: Patient is resting, in no acute distress. She is just recently been given some sedation. I did not wake up. LABORATORY: Hematology WBC 9.08, hemoglobin 10.9, hematocrit 33.1, MCV 65.3, platelet 156,000. Chemistry: Socium 140, potassium 3.6, chloride 104, CO2 21, BUN 83, creatinine 2.1, glucose 131. AST 140, ALT 488, alkaline phosphatase 143. ASSESSMENT AND PLAN: 1. Congestive heart failure. Following with Cardiology. 2. Elevated liver function tests, most likely related to congestive heart failure, shock liver. Her numbers are improving. 3. Atrial fibrillation, on medication. 4. Acute kidney injury. Continue current management. 5. Escherichia coli urinary tract infection, on antibiotics. PLAN: We will continue to follow. Her liver function tests are slowly improving. Further plans will be made according to her progress. I have discussed this case with Dr. Cortes. Dictated by LIZETH Jackson for Giovani Cortes MD cc: LIZETH Lenz MD
[2018-10-18] MEDS: MORPHINE IV PRN ×3 (02:17→13:48)
[2018-10-18] MEDS: CARDIZEM PO SCH ×4 (02:59→20:30)
[2018-10-18 04:52] LABS: ALLEN TEST YES; BE 0.4 mmoll (-3.0-3.0); BLOOD TYPE ARTERIAL; HCO3-(ACT) 25.3 mmoll (20.0-26.0); O2(CT) 9.4 mL/dL (15.0-23.0); O2HB 96.1 % (95.0-99.0); PCO2(98.6) 36 mmHg (35-45); PO2(98.6) 68 mmHg (60-100); SAMPLE BLOOD; SAO2 99.6 % (95.0-100.0); THB 6.9 g/dL (11.5-17.4); pH(98.6) 7.44 (7.35-7.45)
[2018-10-18 04:53] LABS: MODALITY CANNULA
[2018-10-18 05:25] LABS: ALB/GLOB RATIO 1.1; ALBUMIN 2.4 g/dL (3.5-5.0); CALCIUM 7.9 mg/dL (8.8-10.2); CREATININE 1.6 mg/dL (0.5-0.9); POTASSIUM 3.8 mmol/L (3.5-5.1); TOTAL BILIRUBIN 0.63 mg/dL (0.20-1.00); TOTAL PROTEIN 4.6 g/dL (6.3-8.3)
[2018-10-18] MEDS ORDERED: HUMULIN R SUBQ SCH (06:11)
--- NOTE | 2018-10-18 07:10 | Diag Imaging Result Doc PS360 ---
EXAM: CHEST-PORTABLE 10/18/2018 HISTORY: dyspnea TECHNIQUE: AP portable at 0530 COMMENT: There is alveolar opacification of the left lower lobe which was also present on 10/17/2018. There is some atelectasis in the right middle and/or upper lobe. This was also previously present. Overall the appearance of the chest has not changed appreciably. IMPRESSION: Atelectasis and/or pneumonia stable since 10/17/2018. Electronically signed by Ayo Jordan 10/18/2018 7:08 AM
[2018-10-18] MEDS: LOPRESSOR PO SCH ×2 (08:28→20:30)
[2018-10-18] MEDS: LASIX IV SCH ×3 (08:28→17:27)
[2018-10-18] MEDS: LOVENOX SUBQ SCH (08:28)
[2018-10-18] MEDS: LEVEMIR SUBQ SCH (08:30)
[2018-10-18 08:31] LABS: BASO# 0.01 X1000 (0.0-0.2); BASO% 0.1 % (0.0-0.8); HEMATOCRIT 20.8 % (37.0-47.0); HEMOGLOBIN 6.4 g/dL (12.0-16.0); IMM GRAN# 0.03 X1000 (0.0-0.04); IMM GRAN% 0.4 % (0.0-0.5); LYMPH# 1.27 X1000 (1.2-3.4); LYMPH% 16.2 % (20.5-51.1); MCH 21.1 PG (27-31); MCHC 30.8 g/dL (33-37); MCV 68.4 FL (81-99); MONO# 0.99 X1000 (0.11-0.59); MONO% 12.6 % (1.7-9.3); NEUT# 5.55 X1000 (1.4-6.5); NEUT% 70.7 % (42.2-75.2); PLT 152 X1000 (130-400); RBC 3.04 XMIL (4.2-5.4); RDW 18.2 % (11.5-14.5); WBC 7.85 X1000 (4.8-10.8)
[2018-10-18] MEDS: PROTONIX IV SCH (08:44)
[2018-10-18] MEDS: SODIUM CHLORIDE 0.9% INJ SCH (08:44)
[2018-10-18] MEDS: ROCEPHIN 1 GM in NS 50 ML IV SCH (09:42)
[2018-10-18] MEDS ORDERED: LASIX IV ONE (10:00)
--- NOTE | 2018-10-18 10:01 | PROGRESS NOTE ---
DATE: 10/18/2018 SUBJECTIVE: Patient continues to be altered. Does not follow commands. This morning she was moaning in pain, according to nursing staff, and she received morphine and since then she is a little bit more calmed down. No other complaints noted. OBJECTIVE: Vital Signs: Temperature 98.0 degrees, heart rate 116, respiratory rate 20, blood pressure 96/66, O2 saturation 95% on 2 L nasal cannula. General: This is a chronically ill- looking, 83-year-old female, lying in bed, in no acute distress. HEENT: Head is normocephalic with mucous membranes very dry. Neck: No JVD noted. No carotid bruits. No lymphadenopathy. No thyromegaly. Cardiovascular: S1, S2 heard, irregularly irregular, tachycardic. No murmurs or gallops noted. Respiratory: Coarse breath sounds and crepitations noted in both anterior and posterior pulmonary pearl. Patient is not using any accessory muscles or having work of breathing. Abdomen: Soft, a little bit distended, but nontender to palpation. Old infraumbilical surgical scar noted. No organomegaly noted. No signs of peritoneal irritation. Extremities: Mild pitting edema in both lower extremities, also, in the lateral aspect of the thigh, and also in the abdominal wall. Neurological: Patient is still altered. She responds to verbal stimuli by opening her eyes, but not answering any question or following any commands. Patient moves 4 extremities spontaneously. DIAGNOSTIC DATA: White cell count 7.85, hemoglobin 6.4, hematocrit 20.8, platelets 152,000. ABG that shows pH 7.44 with pCO2 of 36, PO2 of 68. Creatinine 1.6, glucose 314, AST 76, ALT 301. ASSESSMENT AND PLAN: 1. Acute congestive heart failure associated with severe tricuspid regurgitation. Clinically, this patient in physical examination still disclosed some coarse breath sounds and crepitations. Patient currently is receiving furosemide 40 mg IV daily. She is also off of pressors. Cardiology is following this patient. At this point, we will continue with same management. 2. Transaminitis, secondary to shock liver. LFTs continue to improve. We will continue to monitor CMP daily. 3. Nonoliguric acute kidney injury. Renal function continues to improve. Nephrology has signed off because renal function continued to improve. 4. Atrial fibrillation with rapid ventricular rate. Heart rate has been a little bit higher this morning so she received metoprolol and also Cardizem, and blood pressure has been a little bit low in the range of high 90s. At this point, we will continue with monitoring this patient closely. 5. Escherichia coli urinary tract infection (E coli UTI). Patient is on ceftriaxone. Today is day #4. We will continue with the same management. The urine culture showed E coli pansensitive so we will continue with the same management. 6. Altered mental status. Apparently, this is secondary to narcotics, opiate induced, when patient was on the ventilator but at this point we will continue with same management. 7. Anemia of uncertain etiology. Hemoglobin has dropped to 6.4. At this point , we are going to transfuse 2 units of blood. Lovenox that has been in the therapeutic range has been stopped. We will do hemoglobin and hematocrit q.6 h. for the next 24 hours, and we will go from there. cc: Manohar Miller MD MTDD
[2018-10-18 10:03] LABS: ANISOCYTOSIS 2+; HYPOCHROM 2+; LYMPHS 6 % (21-51); MONO 6 % (1-9); NRBC 1 % (0-0); POIKILOCYTOSIS 2+; SEGS 88 % (42-75)
[2018-10-18 10:05] LABS: LARGE PLATELETS 1+; MICROCYTOSIS 2+; SCHISTOCYTES OCCASIONAL
[2018-10-18] MEDS: HUMALOG SUBQ SCH ×4 (10:34→20:29)
--- NOTE | 2018-10-18 13:32 | PROGRESS NOTE ---
DATE: 10/18/2018 SUBJECTIVE: The patient was awake. She did not follow commands at the time of my evaluation. OBJECTIVE: Vital Signs: Temperature is 98.3 degrees, pulse 86, respirations 22, blood pressure 111/56. Generally, the patient was awake but not oriented and did not follow commands. LABORATORY: Hematology: WBC 7.85, hemoglobin 6.4, hematocrit 20.8, MCV 68.4, platelet 152,000. Chemistry: Sodium 143, potassium 3.8, chloride 106, CO2 of 25. BUN 77, creatinine 1.6. Glucose 314. Total bilirubin 0.63. AST 76, ALT 301. Alkaline phosphatase 149. ASSESSMENT AND PLAN: 1. Acute congestive heart failure with severe tricuspid regurgitation following with Cardiology. 2. Elevated liver function tests, most likely related to shock liver. Her numbers have improved. 3. Anemia. Patient has had decrease in her hemoglobin and hematocrit. There has been no sign of active bleeding. She has 2 units of packed red blood cells ordered. I think her Lovenox has been held. We will continue to follow and further plans will be made according to her response to blood transfusion. Watch for any signs of active GI bleeding. I will discuss this case with Dr. Cortes. Dictated by LIZETH Jackson for Giovani Cortes MD cc: LIZETH Lenz MD
--- NOTE | 2018-10-18 13:51 | PROGRESS NOTE ---
DATE: 10/18/2018 SUBJECTIVE: The patient is more awake and interactive although she remained somewhat confused. She seems to respond to questions and follows commands at this point. She is being transfused with packed red blood cells. Because of abrupt drop in hematocrit. Anticoagulation with Lovenox has been stopped. OBJECTIVE: Vital Signs: Blood pressure 111/56, heart rate 86 and irregular with ECG monitor showing atrial fibrillation. Oxygen saturation 100% on nasal cannula oxygen at 2 L/minute. Neck: There is no significant jugular venous distention Chest: Clear to auscultation anteriorly. Cardiac exam: Reveals an irregular rate and rhythm without appreciable murmur or gallop. Extremities: Are without edema. LABORATORY DATA: Includes a white blood cell count 7.85, hematocrit 20.8, hemoglobin 6.4. platelet count 152. Sodium 143, potassium 3.8, chloride 106, carbon dioxide 25, BUN 77, creatinine 1.6. Glucose 314. IMPRESSION: 1. Acute on chronic systolic heart failure, probably right-sided, associated with severe tricuspid regurgitation and moderate mitral regurgitation. Patient clinically improving with gentle diuresis and supportive care. No evidence of pulmonary emboli. Suspect previously complicated right-sided heart failure due to severe tricuspid regurgitation. Was destabilized by the uatsdin of atrial fibrillation. 2. Elevated serum transaminases, probably related to congestive heart failure. This is improving. 3. Anemia with abrupt drop in hematocrit. Agree with transfusion and interruption of anticoagulation. Continue ulcer prophylaxis. 4. Nonoliguric acute renal dysfunction. This is likely cardiorenal syndrome and is also progressively improving with diuresis and supportive care. 5. Atrial fibrillation. Rate controlled. 6. Recent urinary tract infection with E coli. RECOMMENDATIONS: 1. Maintain gentle diuresis with IV Lasix. 2. Agree with plans to transfuse packed red blood cells and interrupt Lovenox. 3. Continue conservative cardiovascular management at this point. cc: Yoav Eagle MD
[2018-10-18 13:55] LABS: HEMATOCRIT 22.8 % (37.0-47.0); HEMOGLOBIN 7.1 g/dL (12.0-16.0)
--- NOTE | 2018-10-18 15:07 | NEPHROLOGY PROGRESS NOTE ---
DATE: 10/18/2018 SUBJECTIVE: Patient resting in bed. She will open her eyes. OBJECTIVE: Vital Signs: Temperature 98, pulse 122, respiratory rate 20, blood pressure 109/72. Intake 1 L. Output 2.4 L via Nolasco catheter. PHYSICAL EXAMINATION: General: Elderly female, resting in bed. No acute distress. HEENT: Normocephalic, atraumatic. Oral mucosa dry. Neck: Supple. No JVD. Cardiovascular: Tachycardic. Pulmonary: She has some rhonchi bilaterally. Abdomen: Soft, with positive bowel sounds. Genitourinary: Not inspected. Nolasco catheter. Yellow urine. Extremities: Trace edema. Integumentary: Skin is warm and dry. LAB DATA: Sodium 143, potassium 3.8, CO2 25, creatinine 1.6. Chest x-ray with stable atelectasis versus pneumonia. ASSESSMENT AND PLAN: Acute kidney injury, likely acute tubular necrosis. Patient's renal function has continued to improve dramatically over the last 48 hours. Her urine output is excellent. I have no further indications for intervention from a nephrology standpoint at this time. We will sign off. If we can be of further assistance please do not hesitate to contact us. Dictated by LIZETH Hillman for Kurt Mullen MD Face to face encounter, data reviewed, discussed with Tray Bateman on 10/18/17. I agree with the above assessment and plan of care. cc: Kurt Mullen MD [facility]
[2018-10-18 18:24] LABS: HEMATOCRIT 27.2 % (37.0-47.0); HEMOGLOBIN 8.8 g/dL (12.0-16.0)
[2018-10-19 01:10] LABS: HEMATOCRIT 22.9 % (37.0-47.0); HEMOGLOBIN 7.4 g/dL (12.0-16.0)
[2018-10-19] MEDS: CARDIZEM PO SCH ×4 (01:40→21:05)
[2018-10-19 05:22] LABS: BLOOD TYPE ARTERIAL; SAMPLE BLOOD
[2018-10-19 05:23] LABS: ALLEN TEST YES; BE 1.7 mmoll (-3.0-3.0); HCO3-(ACT) 26.3 mmoll (20.0-26.0); METHB 0.7 % (0.0-1.5); MODALITY CANNULA; O2(CT) 9.5 mL/dL (15.0-23.0); O2HB 96.5 % (95.0-99.0); PCO2(98.6) 35 mmHg (35-45); PO2(98.6) 88 mmHg (60-100); SAO2 98.9 % (95.0-100.0); THB 6.9 g/dL (11.5-17.4); pH(98.6) 7.47 (7.35-7.45)
[2018-10-19] MEDS: MORPHINE IV PRN ×3 (05:40→16:28)
[2018-10-19 05:51] LABS: BASO# 0.01 X1000 (0.0-0.2); BASO% 0.1 % (0.0-0.8); CALCIUM 8.4 mg/dL (8.8-10.2); CREATININE 1.7 mg/dL (0.5-0.9); HEMATOCRIT 20.4 % (37.0-47.0); HEMOGLOBIN 6.5 g/dL (12.0-16.0); IMM GRAN# 0.08 X1000 (0.0-0.04); IMM GRAN% 0.6 % (0.0-0.5); LYMPH# 1.35 X1000 (1.2-3.4); LYMPH% 9.3 % (20.5-51.1); MCHC 31.9 g/dL (33-37); MCV 75.3 FL (81-99); MONO# 1.97 X1000 (0.11-0.59); MONO% 13.6 % (1.7-9.3); MPV 11.7 FL (7.4-10.4); NEUT# 11.06 X1000 (1.4-6.5); NEUT% 76.4 % (42.2-75.2); PLT 115 X1000 (130-400); POTASSIUM 3.9 mmol/L (3.5-5.1); RBC 2.71 XMIL (4.2-5.4); RDW 20.7 % (11.5-14.5); WBC 14.47 X1000 (4.8-10.8)
[2018-10-19] MEDS: HUMALOG SUBQ SCH ×4 (06:35→21:05)
[2018-10-19] MEDS ORDERED: LASIX IV SCH ×2 (06:45→09:00)
--- NOTE | 2018-10-19 07:48 | Diag Imaging Result Doc PS360 ---
EXAM: CHEST-PORTABLE INDICATION: dyspnea TECHNIQUE: One view COMPARISON: 10/18/2018 FINDINGS: Support tubes and lines are in stable positions. Inspiration is suboptimal. Left basilar opacity is unchanged. There is blunting of the left costophrenic angle suggesting a likely small effusion, also stable. There is stable mild atelectasis in the right midlung zone. Cardiac silhouette is stable. IMPRESSION: Stable chest. Electronically signed by Audie Chin 10/19/2018 7:46 AM
--- NOTE | 2018-10-19 07:52 | PROGRESS NOTE ---
DATE: 10/19/2018 SUBJECTIVE: The patient continues to be altered and confused. Does not follow commands. She has been having low blood pressure but she has not needed to start vasopressors. No melena or hematemesis noted as per nursing staff. OBJECTIVE: Vital Signs: Temperature 97.3, heart rate 101, respiratory rate 18 , blood pressure 115/72, O2 saturation 96% on 5 L nasal cannula. General Examination: This is a chronically ill- looking and frail, 83-year-old, female lying in bed, in no acute distress. HEENT: Head is normocephalic and atraumatic. Mucous membranes are dry. Neck: No JVD noted. No carotid bruits. No lymphadenopathy. No thyromegaly. Cardiovascular Examination: S1 and S2 heard. Irregularly irregular. Tachycardic but no murmurs, gallops, or rubs noted. Respiratory Examination: Coarse breath sounds and crepitations noticed still in both anterior and posterior pulmonary pearl. The patient is not using any accessory muscles or having work of breathing. Abdomen: Soft. A little bit more distended in comparing with yesterday. An old infraumbilical surgical scar is noted. No organomegaly noted. No signs of peritoneal irritation. Extremities: Mild pitting edema in the lower extremity, also in the lateral aspect of the thigh. Neurological Examination: The patient is still altered. She open her eyes to verbal stimuli but she does not answer any questions. She does not follow any commands. Laboratory Data: White cell count 14.47, hemoglobin 6.5, hematocrit 20.4, platelets 150,000. ABG shows pH 7.47 with pCO2 of 35 and PO2 88. That was on nasal cannula. BMP remarkable for creatinine 1.7 with sodium 148 and glucose 242. ASSESSMENT/PLAN: 1. Acute congestive heart failure associated with severe tricuspid regurgitation. Currently, this patient is receiving 40 mg intravenous of Lasix. She is basically requiring still high amounts of oxygen. Considering that the blood pressure is fine and renal function has stabilized, I think I will change it to twice daily. 2. Anemia of acute blood loss. Yesterday, for unknown reasons, hemoglobin had dropped to 6.4 so two units of blood were provided but today, the hemoglobin is basically the same as yesterday at 6.4. In any case, even though there have not been any signs of bleeding, I think we need to inform gastroenterology about those findings and see if she needs to be scoped here in the hospital or not. In any case, we have ordered two units of blood to be transfused today. We will monitor hemoglobin and hematocrit every 6 hours. Will also check a CT of abdomen and pelvic looking for bleeding too. 3. Transaminitis secondary to shock liver. Continues to improve. 4. Nonoliguric acute kidney injury. The creatinine is stable. Nephrology has signed off. 5. Atrial fibrillation with rapid ventricular response. At this point, heart rate is well controlled. She is not requiring any drips like Cardizem. We will continue to monitor this patient closely. 6. Escherichia coli urinary tract infection. We will continue with ceftriaxone. Today is day #5 of that antibiotic. . 7. Altered mental status. Patient continues to be altered. I think, at this point, we will continue to monitor. Initially, we were thinking that it was secondary to narcotics, opiate induced. At this point, she continues to be the same. We will continue to monitor the patient closely. 8. Disposition. We will continue to monitor this patient closely. We will inform GI and will see results of CT of abdomen and pelvis. Addendum: We have reviewed results of CT of abdomen and pelvis which showed large retroperitoneal hematoma. Will transfuse 2 units of blood and consult Surgery if there any surgical procedure warranted for this patient. cc: Manohar Miller MD MTDD
[2018-10-19] MEDS: NS 500 ML IV SCH ×2 (08:16→13:06)
[2018-10-19] MEDS: LOPRESSOR PO SCH ×2 (08:57→21:05)
[2018-10-19] MEDS: SODIUM CHLORIDE 0.9% INJ SCH (08:57)
[2018-10-19] MEDS: PROTONIX IV SCH (08:57)
[2018-10-19] MEDS: LEVEMIR SUBQ SCH (09:04)
--- NOTE | 2018-10-19 10:11 | PROGRESS NOTE ---
DATE: 10/19/2018 SUBJECTIVE: Patient is somewhat drowsy this morning and arouses to verbal, but remains confused. She is being transfused additional packed red blood cells. OBJECTIVE: Vital Signs: Blood pressure 103/52, heart rate 114 with ECG monitor showing atrial fibrillation. Oxygen saturation 100% on nasal cannula oxygen. HEENT: Mucous membranes appear dry. Neck: Supple with flat neck veins. Chest: Clear to auscultation anteriorly. Cardiac: Irregular rate and rhythm without appreciable murmur or gallop. Extremities: Are without edema. LABORATORY DATA: Includes a white blood cell count of 14.47, hematocrit 22.9, hemoglobin 7.4, platelet count 115,000. Sodium 148, potassium 3.9, chloride 109, carbon dioxide 25, BUN 91, creatinine 1.7, glucose 217. IMPRESSION: 1. Recent acute on chronic systolic heart failure predominantly right-sided in setting of severe tricuspid regurgitation, moderate mitral regurgitation, and recent onset of atrial fibrillation. Patient has been diuresed and presently appears somewhat intravascular volume depleted. 2. Anemia. 3. Recent elevated serum transaminases probably related to right-sided congestive heart failure and diminished cardiac output. 4. Nonoliguric acute renal dysfunction. 5. Atrial fibrillation, rate mildly elevated despite current regimen. 6. Suspect anemia and intravascular volume depletion driving heart rate up. RECOMMENDATIONS: 1. Hold Lasix. 2. Agree with further transfusion of packed red blood cells. cc: Yoav Eagle MD
[2018-10-19] MEDS: ROCEPHIN 1 GM in NS 50 ML IV SCH (11:30)
--- NOTE | 2018-10-19 11:56 | Diag Imaging Result Doc PS360 ---
EXAM: CT ABDOMEN/PELVIS W/O CONTRAST 10/19/2018 HISTORY: r/o internal bleeding. TECHNIQUE: This exam was performed using automated exposure control, adjustment of mA or kV according to patient size, and/or use of iterative reconstruction technique. COMMENT: The current examination is compared with the previous study of 10/13/2018. There is worsened atelectasis and consolidation of both lower lobes. There continue to be bilateral pleural effusions. There is still ascites. There is vicarious excretion of intravenous contrast by the gallbladder which was not apparent previously. There is an NG tube with its tip in the distal stomach or duodenal bulb. There is high density material in the subphrenic space on the left which was not previously present. There is stranding in the perinephric fat and displacement of the left kidney anteriorly by what appears to be a large hematoma. This abuts the left diaphragmatic andre as well as the upper portion of the psoas and demonstrates heterogeneous density with some fluid debris levels consistent with a hematoma. The hematoma extends into the pelvis anteromedial to the iliopsoas at the level of the acetabulum. In total the hematoma extends over 25 cm in superior-inferior dimension and is at least 10.3 cm in transverse dimension. Pelvis: There is a fair amount of gas throughout the colon. There is retained fecal debris. There is marked perirectal edema which is somewhat worse than on the previous study. There is a Nolasco catheter in the bladder. There is also somewhat worsened subcutaneous edema which is consistent with anasarca. IMPRESSION: 1. Worsened bilateral lower lobe atelectasis versus pneumonia. 2. Large new left retroperitoneal hematoma. 3. Worsened anasarca. The findings were discussed with Giovani Cortes MD at 10/19/2018 11:54 AM. Electronically signed by Ayo Jordan 10/19/2018 11:54 AM
[2018-10-19 12:14] LABS: HEMATOCRIT 26.4 % (37.0-47.0); HEMOGLOBIN 8.6 g/dL (12.0-16.0)
--- NOTE | 2018-10-19 15:38 | PROGRESS NOTE ---
DATE: 10/19/2018 SUBJECTIVE: The patient had eyes open. She did not follow commands at the time of my evaluation. OBJECTIVE: Vital Signs: Temperature 97.6 degrees, pulse 111 respirations 18, blood pressure 117/76. Again generally patient was awake, but did not follow commands so she did not speak. LABORATORY: Hematology: WBC 14.47, hemoglobin 8.6, hematocrit 26.4, MCV 75.3. Patient had significant drop over the last 2 days of her hemoglobin and hematocrit. An abdominal pelvis CT scan was done this morning that showed worsening bilateral lower lobe atelectasis versus pneumonia, and a large new left retroperitoneal hematoma and worsening anasarca. ASSESSMENT AND PLAN: 1. Recent acute/chronic systolic heart failure following with Cardiology. 2. Elevated liver function tests, most likely related to congestive heart failure. 3. Recent worsening anemia. CT findings showed a retroperitoneal hematoma. Recommend to monitor hemoglobin and hematocrit and transfuse further packed red blood cells as needed. I believe [facility] has been consulted. GI will continue to follow along and further plans made according to her progress. I have discussed this case with Dr. Cortes. Dictated by LIZETH Jackson for Giovani Cortes MD cc: LIZETH Lenz MD
[2018-10-19 19:50] LABS: HEMATOCRIT 27.5 % (37.0-47.0); HEMOGLOBIN 8.8 g/dL (12.0-16.0)
[2018-10-20 01:21] LABS: HEMATOCRIT 26.3 % (37.0-47.0); HEMOGLOBIN 8.5 g/dL (12.0-16.0)
[2018-10-20] MEDS: CARDIZEM PO SCH ×4 (01:52→22:03)
[2018-10-20] MEDS: MORPHINE IV PRN ×3 (01:52→18:00)
[2018-10-20 05:22] LABS: BLOOD TYPE ARTERIAL; SAMPLE BLOOD
[2018-10-20 05:37] LABS: ALLEN TEST YES; BE 5.6 mmoll (-3.0-3.0); HCO3-(ACT) 29.2 mmoll (20.0-26.0); METHB 1.1 % (0.0-1.5); O2(CT) 11.3 mL/dL (15.0-23.0); O2HB 92.1 % (95.0-99.0); PCO2(98.6) 41 mmHg (35-45); PO2(98.6) 62 mmHg (60-100); SAO2 94.8 % (95.0-100.0); THB 8.7 g/dL (11.5-17.4); pH(98.6) 7.47 (7.35-7.45)
[2018-10-20 05:38] LABS: MODALITY CANNULA
[2018-10-20 06:29] LABS: BASO# 0.02 X1000 (0.0-0.2); BASO% 0.1 % (0.0-0.8); EOS# 0.05 X1000 (0.0-0.7); EOS% 0.3 % (0.0-10.0); HEMATOCRIT 26.1 % (37.0-47.0); HEMOGLOBIN 8.4 g/dL (12.0-16.0); IMM GRAN# 0.18 X1000 (0.0-0.04); IMM GRAN% 1.2 % (0.0-0.5); LYMPH# 1.64 X1000 (1.2-3.4); LYMPH% 10.6 % (20.5-51.1); MCH 26.2 PG (27-31); MCHC 32.2 g/dL (33-37); MCV 81.3 FL (81-99); MONO# 1.73 X1000 (0.11-0.59); MONO% 11.1 % (1.7-9.3); NEUT# 11.92 X1000 (1.4-6.5); NEUT% 76.7 % (42.2-75.2); PLT 89 X1000 (130-400); RBC 3.21 XMIL (4.2-5.4); RDW 20.8 % (11.5-14.5); WBC 15.54 X1000 (4.8-10.8)
[2018-10-20] MEDS: HUMALOG SUBQ SCH ×4 (06:53→21:20)
--- NOTE | 2018-10-20 07:08 | Diag Imaging Result Doc PS360 ---
EXAM: CHEST-PORTABLE 10/20/2018 HISTORY: dyspnea TECHNIQUE: AP portable at 0505 COMMENT: There is hazy opacity throughout the left lung but particularly in the retrocardiac portion of the left lower lobe. There is minimal atelectasis or pneumonia in the perihilar portion of the right lower lobe. The latter appears slightly worse than on 10/19/2018. IMPRESSION: Atelectasis and/or pneumonia both lower lobes, plus minus pulmonary edema. Electronically signed by Ayo Jordan 10/20/2018 7:05 AM
[2018-10-20 07:10] LABS: CALCIUM 8.9 mg/dL (8.8-10.2); CREATININE 1.3 mg/dL (0.5-0.9); POTASSIUM 3.7 mmol/L (3.5-5.1)
[2018-10-20 07:25] LABS: LYMPHS 10 % (21-51); MONO 10 % (1-9); SEGS 80 % (42-75)
[2018-10-20 07:26] LABS: ANISOCYTOSIS 1+; SCHISTOCYTES OCCASIONAL
--- NOTE | 2018-10-20 07:41 | GENERAL SURGERY CONSULTATION ---
DATE: 10/19/2018 HISTORY OF PRESENT ILLNESS: Ms. Sullivan is an 83-year-old lady who was admitted with an abnormal EKG and dizziness. She was found to have atrial fibrillation, newly-diagnosed, with rapid ventricular rate. She was placed on Lovenox and anticoagulation. She then experienced a sudden drop in her hematocrit on 10/18. She was transfused. A CT scan done today showed a retroperitoneal hematoma. CT scan from 10/13 did not show a retroperitoneal hematoma. The Lovenox was stopped. OTHER MEDICAL PROBLEMS: Coronary artery disease, hyperlipidemia, hypertension, type 2 diabetes, hypothyroidism, rheumatoid arthritis. PAST SURGICAL HISTORY: Previous surgery includes knee arthroplasties bilaterally, ORIF of the right tibia, coronary stenting, and hip replacement. MEDICATIONS: Listed. ALLERGIES: Penicillins. SOCIAL HISTORY: She is . Denies tobacco or alcohol use. Has a daughter and daughter-in- law as family. FAMILY HISTORY: Noncontributory. REVIEW OF SYSTEMS: Negative, except for dizziness. PHYSICAL EXAMINATION: Vital Signs: Heart rate is 119, blood pressure 108/82. Her oxygen saturation is 95%. She is an NG tube in place. She is poorly responsive, but does respond slowly. She has bilateral breath sounds, and an irregular rate and rhythm. Abdomen: Somewhat mildly distended, but really nontender. There is no ecchymosis of her abdomen. She denies pain on palpating her left abdomen. Extremities: Femoral pulses are present. The right femoral pulse is more prominent than the left. She has trace peripheral edema. ASSESSMENT AND PLAN: Retroperitoneal hematoma, probably is related to her Lovenox injections. I agree that her anticoagulation will have to be stopped, and we will follow along to be certain her hematoma does not progress. Will do serial hematocrits. cc: Yousuf Mantilla MD
[2018-10-20] MEDS: LOPRESSOR PO SCH (08:27)
[2018-10-20] MEDS: LEVEMIR SUBQ SCH (08:32)
[2018-10-20] MEDS: PROTONIX IV SCH (08:48)
[2018-10-20] MEDS: SODIUM CHLORIDE 0.9% INJ SCH (08:49)
[2018-10-20 08:54] LABS: MAGNESIUM 2.5 mg/dL (1.5-2.7); PHOSPHORUS 2.8 mg/dL (2.7-4.5); PREALBUMIN 9.5 mg/dL (20-40)
[2018-10-20] MEDS ORDERED: LASIX IV SCH (09:00)
[2018-10-20] MEDS ORDERED: INSULIN PEN NEEDLES ONE (09:04)
[2018-10-20] MEDS: D5W 1,000 ML IV SCH ×2 (09:08→16:58)
--- NOTE | 2018-10-20 09:22 | PROGRESS NOTE ---
DATE: 10/20/2018 SUBJECTIVE: The patient is a little bit more awake today. She requests some water. She does follow simple commands. According to nursing staff, the heart rate has been a little bit higher in the range of 120s to 130s, but we were able to control it with Cardizem and Toprol. There are no signs of overt GI bleeding noted, like melena or hematemesis. OBJECTIVE: Vital Signs: Temperature 97.3 degrees, heart rate 97, respiratory rate 17, blood pressure 115/73, O2 saturation 96% on 4 L nasal cannula. General: This is a chronically ill- looking, 83-year-old, female, lying in bed in no acute distress. HEENT: Head is normocephalic, atraumatic. Mucous membranes dry. Neck: No JVD noted. No carotid bruits. No lymphadenopathy. No thyromegaly. Cardiovascular: S1, S2 heard. Irregularly irregular. Tachycardic, but no murmurs, gallops, or rubs noted. Respiratory: Coarse breath sounds are still present, and crepitation as well in both anterior and posterior pulmonary pearl. The patient is not using any accessory muscles or having work of breathing. Abdomen: Soft, a little bit distended, same in comparing with yesterday. Old infraumbilical surgical scar noted. No organomegaly noted. No signs of peritoneal irritation. Extremities: Mild pitting edema in both lower extremities, also in the lateral aspect of the thigh. Neurological: The patient is a little more awake today. Open eyes and requests some water. Follows basic commands. Moves all 4 extremities spontaneously. LABORATORY DATA: White cell count 15.54, hemoglobin 8.4, hematocrit 26.1, platelets 89,000. ABG shows pH 7.42 with pCO2 of 41 and PO2 of 62. Sodium 153, with chloride of 113, renal function 1.3, BUN 72. Prealbumin 9.5. ASSESSMENT AND PLAN: 1. Acute congestive heart failure associated with severe tricuspid regurgitation. Clinically, this patient is stable, receiving now oxygen supplementation by nasal cannula 4 to 5 L/minute. Because of the bleeding, Lasix that this patient was receiving, 40 mg intravenously every 12 hours, has been held. Because blood pressure is stable and hemoglobin and hematocrit are stable, we are planning to restart Lasix, but only once daily 40 mg intravenously, and see how this patient does. Renal function also has stabilized as well. 2. Anemia secondary to retroperitoneal hematoma. The patient has received, so far during the last 24 hours, 4 units of PRBCs. Hemoglobin this morning at 4:30 has been checked and is 8.5. Will continue to check it for the next 24 hours and make sure that she is not losing more blood. We have consulted General Surgery, but there is no surgical approach recommended for this patient at this time. Of course, there have not been any signs of gastrointestinal bleeding. At this point, as we mentioned before, will continue to monitor this patient in the intensive care unit, and checking hemoglobin and hematocrit every 6 hours as well. 3. Atrial fibrillation with rapid ventricular response. The patient's heart rate has not been controlled completely yet. The patient is requiring Cardizem pushes and also metoprolol as well, and the heart rate has been in the range of 120s to 130s most of the time. The patient is not symptomatic. Will continue to monitor this patient closely. 4. Transaminitis secondary to shock liver. Those continue to improve. Will continue to check CMP daily. 5. Nonoliguric acute kidney injury, almost resolved. Creatinine is 1.3 today. Nephrology, who was following this patient, signed off. 6. Escherichia coli urinary tract infection. Will continue with ceftriaxone. 7. Altered mental status. That condition is starting to improve. She is more awake today. Of course, not completely. Requesting some water. At this point, we are going to order a bedside swallow evaluation and see how she does. 8. Disposition. At this point, will continue to monitor this patient closely. The patient has a retroperitoneal hematoma. We need to check hemoglobin and hematocrit every 6 hours. Will continue to monitor this patient closely in the intensive care unit. cc: Manohar Miller MD
[2018-10-20] MEDS: ROCEPHIN 1 GM in NS 50 ML IV SCH (10:37)
[2018-10-20 12:01] LABS: HEMATOCRIT 29.3 % (37.0-47.0); HEMOGLOBIN 9.3 g/dL (12.0-16.0)
[2018-10-20] MEDS ORDERED: 1/2 NS 500 ML IV ONE ×2 (17:11→17:13)
[2018-10-20 18:39] LABS: HEMATOCRIT 32.2 % (37.0-47.0); HEMOGLOBIN 10.2 g/dL (12.0-16.0)
[2018-10-21] MEDS: D5W 1,000 ML IV SCH ×3 (01:04→17:50)
[2018-10-21 03:34] LABS: HEMATOCRIT 22.5 % (37.0-47.0); HEMOGLOBIN 6.8 g/dL (12.0-16.0)
--- NOTE | 2018-10-21 04:10 | PROGRESS NOTE ---
DATE: 10/20/2018 SUBJECTIVE: The patient more awake and responsive. She seems to respond appropriately to questions. She describes feeling weak. There has been no chest pain or dyspnea. OBJECTIVE: Vital Signs: Blood pressure 110/50, heart rate 97. ECG monitor showing atrial fibrillation. Oxygen saturation 100% on nasal cannula oxygen. Neck: There is no significant jugular venous distention. Chest: Clear to auscultation anteriorly. Cardiac: Reveals an irregular rate and rhythm, without appreciable murmur or gallop. Extremities: Without edema. LABORATORY DATA: White blood cell count 15.54, hematocrit 29.3, hemoglobin 9.3, platelet count 89,000. Sodium 153, potassium 3.7, chloride 113, carbon dioxide 26, BUN 72, creatinine 1.3, glucose 185. IMPRESSION: 1. Recent [id number] systolic heart failure, predominantly on the right side, in the setting of severe tricuspid regurgitation, moderate mitral regurgitation, and recent tenriism of atrial fibrillation. The patient is now status post diuresis, and still appears somewhat intravascularly volume-depleted. 2. Significant anemia related to retroperitoneal hemorrhage while on Lovenox. Lovenox has been stopped now for several days. Hematocrit has finally stabilized after further transfusion. RECOMMENDATIONS: 1. Continue diltiazem as needed for rate control. 2. Hold off on further diuresis, given clinical picture of intravascular volume depletion. 3. Gentle IV fluids. cc: Yoav Eagle MD
[2018-10-21] MEDS ORDERED: NS 500 ML IV SCH (04:30)
--- NOTE | 2018-10-21 04:31 | GENERAL SURGERY PROGRESS NOTE ---
DATE: 10/20/2018 Ms. Sullivan is sleeping, but arousable. She is afebrile, heart rate 108, blood pressure 127/68. Her abdominal exam is unchanged. It still remains soft. White count is 15,000, hemoglobin 9.3, hematocrit 29.3. BUN and creatinine are better today. ASSESSMENT: 1. Retroperitoneal hematoma, but no evidence of worsening of the hematoma. 2. Her hemoglobin has actually gone up a bit. cc: Yousuf Mantilla MD
[2018-10-21 04:50] LABS: ALLEN TEST YES; BE 7.1 mmoll (-3.0-3.0); BLOOD TYPE ARTERIAL; HCO3-(ACT) 30.4 mmoll (20.0-26.0); METHB 0.8 % (0.0-1.5); O2(CT) 16.2 mL/dL (15.0-23.0); O2HB 94.1 % (95.0-99.0); PCO2(98.6) 42 mmHg (35-45); PO2(98.6) 72 mmHg (60-100); SAMPLE BLOOD; SAO2 96.4 % (95.0-100.0); THB 12.2 g/dL (11.5-17.4); pH(98.6) 7.48 (7.35-7.45)
[2018-10-21 04:51] LABS: MODALITY CANNULA
[2018-10-21 05:00] LABS: BASO# 0.01 X1000 (0.0-0.2); BASO% 0.1 % (0.0-0.8); EOS# 0.11 X1000 (0.0-0.7); HEMATOCRIT 22.7 % (37.0-47.0); IMM GRAN# 0.13 X1000 (0.0-0.04); IMM GRAN% 1.2 % (0.0-0.5); LYMPH# 1.17 X1000 (1.2-3.4); LYMPH% 10.9 % (20.5-51.1); MCH 26.1 PG (27-31); MCHC 30.8 g/dL (33-37); MCV 84.7 FL (81-99); MONO% 9.3 % (1.7-9.3); NEUT# 8.34 X1000 (1.4-6.5); NEUT% 77.5 % (42.2-75.2); PLT 67 X1000 (130-400); RBC 2.68 XMIL (4.2-5.4); RDW 22.2 % (11.5-14.5); WBC 10.76 X1000 (4.8-10.8)
[2018-10-21] MEDS: NS 500 ML IV SCH (05:50)
[2018-10-21] MEDS: CARDIZEM PO SCH ×3 (05:51→20:36)
[2018-10-21] MEDS: HUMALOG SUBQ SCH ×4 (06:48→20:36)
[2018-10-21 07:06] LABS: LYMPHS 10 % (21-51); MONO 4 % (1-9); NRBC 1 % (0-0); SEGS 86 % (42-75)
--- NOTE | 2018-10-21 07:45 | Diag Imaging Result Doc PS360 ---
CHEST-PORTABLE - 10/21/2018 INDICATION: dyspnea COMPARISON: 10/20/2018 FINDINGS: Stable nasogastric tube and right PICC line in good position. Stable mild retrocardiac atelectasis or consolidation. No new infiltrates. Heart size and pulmonary vascularity is normal. The right basilar atelectasis has improved since prior. IMPRESSION: Improvement from prior. No new abnormalities. Electronically signed by Moisés Grajeda 10/21/2018 7:43 AM
[2018-10-21] MEDS: LASIX IV SCH (08:48)
[2018-10-21] MEDS: LEVEMIR SUBQ SCH (08:49)
[2018-10-21] MEDS: PROTONIX IV SCH (08:49)
[2018-10-21] MEDS ORDERED: NS 500 ML ONE (10:00)
[2018-10-21] MEDS: ROCEPHIN 1 GM in NS 50 ML IV SCH (10:13)
[2018-10-21 10:30] LABS: AGAP 13; ALBUMIN 2.8 g/dL (3.5-5.0); ALKALINE PHOSPHATASE 142 U/L (32-104); BUN 41 mg/dL (8-22); CALCIUM 8.7 mg/dL (8.8-10.2); CHLORIDE 102 mmol/L (98-107); CREATININE 0.8 mg/dL (0.5-0.9); ESTIMATED GFR > 60; GOT 37 U/L (10-30); GPT 139 U/L (10-36); POTASSIUM 3.6 mmol/L (3.5-5.1); SODIUM 142 mmol/L (136-145); TCO2 27 mmol/L (25-35); TOTAL BILIRUBIN 0.91 mg/dL (0.20-1.00); TOTAL PROTEIN 5.5 g/dL (6.3-8.3)
--- NOTE | 2018-10-21 10:48 | PROGRESS NOTE ---
DATE: 10/21/2018 SUBJECTIVE: Patient continues to improve in terms of mental status. She is more awake today. She was tolerating water without choking. She denies any abdominal pain. Denies any dizziness. OBJECTIVE: Vital Signs: Temperature 97.6 degrees, heart rate 101, respiratory rate 21, blood pressure 116/78, O2 saturation 92% on 5 L nasal cannula. General Examination: This is a chronically ill-looking 83-year-old female lying in bed, in no acute distress. HEENT: Head is normocephalic, atraumatic. Mucous membranes dry. Neck: No JVD noted. No carotid bruits. No lymphadenopathy. No thyromegaly. Cardiovascular: S1, S2 heard. Irregularly irregular. Tachycardic but no murmurs, gallops, or rubs noted. Respiratory: Breath sounds still present in both pulmonary bases as well as crepitations but patient is not using any accessory muscles or having work of breathing. Abdomen: Soft, a little bit distended but nontender to palpation. There is an old infraumbilical surgical scar noted. No organomegaly noted. No signs of peritoneal irritation. Extremities: Mild pitting edema in both lower extremities but there is less edema in the lateral aspect of the thighs. Neurological: Patient is more awake today. Opens eyes, can have a good conversation. Follows commands. LABORATORY DATA: Hemoglobin is 6.8, hematocrit 22.5. ABG shows pH of 48 with pCO2 42, PO2 72. BMP unfortunately still pending. ASSESSMENT AND PLAN: 1. Acute congestive heart failure associated with severe tricuspid regurgitation. Clinically physical examination looks close, no difference when compared with yesterday. Patient is still receiving Lasix 40 mg IV daily. Also mainly because she has received so far 4 units of blood over the last 24 hours, we will continue following recommendations from Cardiology. 2. Anemia secondary to retroperitoneal hematoma. So far she has received 5 units of blood. Hemoglobin this morning has been 6.8. We are going to transfuse 1 unit of blood additionally and we are going to check a CT scan of the abdomen and pelvis with and without contrast and we will go from there. Dr. Mantilla from General Surgery is following this patient. We will follow recommendations. 3. Atrial fibrillation with rapid ventricular response. Heart rate is a little bit elevated in the range of 100 to 110s. The patient is on Cardizem and metoprolol. We will continue with the same management. 4. Transaminitis secondary to shock liver. The labs are pending from today but from yesterday those were improving. 5. Nonoliguric acute kidney injury. Renal function has been improving with no have any labs from today. We will continue to monitor. 6. Escherichia coli urinary tract infection. We will continue with ceftriaxone. 7. Altered mental status that continues to improve. DISPOSITION: At this point, we are concerned about continuing drop in hemoglobin. So far, we transfused 6 units of blood in the last 48 hours. We are going to recheck a CT scan today and see what General Surgery has to say. cc: Manohar Miller MD
[2018-10-21 11:05] LABS: COSMO 298; GLUCOSE 243 mg/dL (70-104)
--- NOTE | 2018-10-21 13:06 | PROGRESS NOTE ---
DATE: 10/21/2018 SUBJECTIVE: Patient is more awake. She is alert today. She did answer my questions and follow commands. Unfortunately, she has had another drop in her hemoglobin and hematocrit. A CT scan has been ordered. OBJECTIVE: Vital Signs: Temperature 97.1 degrees, pulse 109, respirations 20, and blood pressure 120/69. General: Patient is more alert. She is awake and following commands. Abdomen: Soft and nontender, I do notice cyanosis over the end of her finger tips which are cool to the touch. LABORATORY: Hematology: WBC 10.76, hemoglobin 6.8, hematocrit 22.5, and platelets 67,000. Chemistry: Sodium 142, potassium 3.6, chloride 102, CO2 27, BUN 41, creatinine 0.8, glucose 243, total bilirubin 0.91, AST 37, ALT 139, and alkaline phosphatase 142. ASSESSMENT AND PLAN: 1. Acute/chronic systolic heart failure following with Cardiology. 2. Elevated liver function tests are improving. Elevation most likely related to congestive heart failure. 3. Recent drop in hemoglobin and hematocrit. Previous CT findings of retroperitoneal hematoma. Repeat CT scan has been ordered by Dr. Mantilla. 4. We will continue to follow and further plans to be made according to her progress. GI will be available as needed. Please re-consult if needed. I have discussed this case with Dr. Cortes. Dictated by LIZETH Jackson for Giovani Cortes MD cc: LIZETH Lenz MD
[2018-10-21] MEDS: MORPHINE IV PRN ×2 (13:17→23:56)
--- NOTE | 2018-10-21 14:46 | Diag Imaging Result Doc PS360 ---
CT ABD/PELVIS W/IV CONT ONLY - 10/21/2018 INDICATION: Low H/H COMPARISON: 10/19/2018 FINDINGS: Stable small bilateral pleural effusions. Stable significant collapse of the lower lobes. There is a nasogastric tube in good position in the stomach. Heart size remains stable. There has been decrease in size of the large left retroperitoneal hematoma. Maximally this measures 10.6 x 11.9 cm. There is stable body wall edema. Nolasco catheter in the urinary bladder. There is some trace ascites. No bowel obstruction or inflammation. No hydronephrosis. Otherwise abdominal organs appear normal. IMPRESSION: 1. Slight decrease in size of the large left retroperitoneal hematoma. 2. Stable pleural effusions, body wall edema, and trace ascites. Stable bibasilar atelectasis. This exam was performed using automated exposure control, adjustment of mA or kV according to patient size, and/or use of iterative reconstruction technique Electronically signed by Moisés Grajeda 10/21/2018 2:44 PM
--- NOTE | 2018-10-21 17:51 | PROGRESS NOTE ---
DATE: 10/21/2018 SUBJECTIVE: Patient awake and responsive. She denies any discomfort or shortness of breath. Hematocrit dropped again on this morning's labs and she is receiving additional transfusion of packed red blood cells. OBJECTIVE: Blood pressure 121/55, heart rate 100, oxygen saturation 99% on nasal cannula oxygen at 5 L/minute. There is no significant jugular distention.Chest: Clear to auscultation anteriorly. Cardiac Exam: Reveals irregular rate and rhythm without appreciable murmur or gallop. Extremities: Without edema. LABORATORY DATA: Includes a white blood cell count of 10.76, hematocrit 22.5, hemoglobin 6.8, platelet count 67,000. Sodium 142, potassium 3.6, chloride 102, carbon dioxide 27, BUN 41, creatinine 0.8, glucose 243, AST 37, ALT 139, albumin 2.8. IMPRESSION: 1. Recent acute on chronic systolic heart failure predominantly right-sided in setting of severe tricuspid regurgitation, moderate mitral regurgitation, and recent denominational of atrial fibrillation. Patient has been diuresed and presently appears to be near euvolemic. 2. Anemia exacerbated by retroperitoneal hemorrhage while on Lovenox which was discontinued several days ago. Hematocrit dropped again this morning and further transfusion underway. 3. Atherosclerotic coronary disease. 4. Hypertension RECOMMENDATIONS: 1. Continue diltiazem for rate control. 2. Continue gentle IV fluid administration. 3. Conservative cardiovascular management for now. cc: Yoav Eagle MD MTDD
[2018-10-22] MEDS: D5W 1,000 ML IV SCH ×3 (01:47→16:15)
--- NOTE | 2018-10-22 04:52 | GENERAL SURGERY PROGRESS NOTE ---
DATE: 10/21/2018 TIME: 5:45 p.m. She is afebrile, heart rate 86, blood pressure 95/60. She is more alert today. She denies abdominal pain. Her abdomen is soft. Her hemoglobin did fall to 6.8, hematocrit 22.5. However, her CT scan today did not show any enlargement of the hematoma. In fact, it showed possible decrease. We will continue to check daily hemoglobins. If, in fact, she expands her hematoma, she might benefit from embolization by interventional radiologist if that site can be localized, but right now, there is no convincing evidence that this is enlarging. cc: Yousuf Mantilla MD
[2018-10-22 05:20] LABS: BASO# 0.02 X1000 (0.0-0.2); BASO% 0.2 % (0.0-0.8); EOS# 0.13 X1000 (0.0-0.7); EOS% 1.1 % (0.0-10.0); HEMATOCRIT 33.3 % (37.0-47.0); HEMOGLOBIN 10.8 g/dL (12.0-16.0); IMM GRAN# 0.15 X1000 (0.0-0.04); IMM GRAN% 1.3 % (0.0-0.5); LYMPH# 1.65 X1000 (1.2-3.4); LYMPH% 14.2 % (20.5-51.1); MCHC 32.4 g/dL (33-37); MCV 83.3 FL (81-99); MONO# 0.97 X1000 (0.11-0.59); MONO% 8.3 % (1.7-9.3); NEUT# 8.72 X1000 (1.4-6.5); NEUT% 74.9 % (42.2-75.2); PLT 84 X1000 (130-400); WBC 11.64 X1000 (4.8-10.8)
[2018-10-22 05:27] LABS: ALLEN TEST YES; BE 10.3 mmoll (-3.0-3.0); BLOOD TYPE ARTERIAL; HCO3-(ACT) 32.9 mmoll (20.0-26.0); METHB 1.3 % (0.0-1.5); PCO2(98.6) 43 mmHg (35-45); PO2(98.6) 77 mmHg (60-100); SAMPLE BLOOD; SAO2 97.6 % (95.0-100.0); THB 8.9 g/dL (11.5-17.4); pH(98.6) 7.51 (7.35-7.45)
[2018-10-22 05:28] LABS: MODALITY CANNULA
[2018-10-22 05:32] LABS: INR 0.92; PROTIME 13.1 Seconds (11.0-16.0)
[2018-10-22 05:47] LABS: AGAP 9; ALBUMIN 2.6 g/dL (3.5-5.0); ALKALINE PHOSPHATASE 128 U/L (32-104); BUN 26 mg/dL (8-22); CALCIUM 8.1 mg/dL (8.8-10.2); CHLORIDE 98 mmol/L (98-107); COSMO 282; CREATININE 0.7 mg/dL (0.5-0.9); ESTIMATED GFR > 60; GLUCOSE 186 mg/dL (70-104); GOT 34 U/L (10-30); GPT 97 U/L (10-36); POTASSIUM 3.6 mmol/L (3.5-5.1); SODIUM 136 mmol/L (136-145); TCO2 29 mmol/L (25-35); TOTAL BILIRUBIN 0.91 mg/dL (0.20-1.00); TOTAL PROTEIN 5.1 g/dL (6.3-8.3)
[2018-10-22] MEDS: CARDIZEM PO SCH ×3 (06:00→20:02)
[2018-10-22] MEDS: HUMALOG SUBQ SCH ×4 (06:27→20:01)
[2018-10-22] MEDS: MORPHINE IV PRN ×3 (06:27→22:44)
[2018-10-22] MEDS: LEVEMIR SUBQ SCH (08:03)
[2018-10-22] MEDS: LASIX IV SCH (08:04)
--- NOTE | 2018-10-22 08:14 | Diag Imaging Result Doc PS360 ---
EXAM: CHEST-PORTABLE INDICATION: dyspnea TECHNIQUE: One view COMPARISON: 10/21/2018 FINDINGS: Support tubes and lines are in stable positions. Inspiration is suboptimal similar to the previous study. Mild retrocardiac atelectasis and/or infiltrate is essentially stable. No new consolidation is identified. Cardiac silhouette is stable. IMPRESSION: Essentially stable chest. Electronically signed by Audie Chin 10/22/2018 8:11 AM
[2018-10-22] MEDS: PROTONIX IV SCH (09:38)
[2018-10-22] MEDS: ROCEPHIN 1 GM in NS 50 ML IV SCH (09:38)
--- NOTE | 2018-10-22 12:55 | PROGRESS NOTE ---
DATE: 10/22/2018 SUBJECTIVE: The patient is basically the same in comparing with yesterday; however, awake but not completely fine. Able to get some liquids, but no other complaint noted. No signs of GI bleeding. OBJECTIVE: Vital Signs: Temperature 96.8, heart rate 97, respiratory rate 16, blood pressure 118/73, O2 sats 95% on 5 L nasal cannula. General: This is a chronically ill- looking 83-year-old female lying in bed, in no acute distress. HEENT: Head is normocephalic, atraumatic. Neck: No JVD noted. No carotid bruits. No lymphadenopathy. No thyromegaly. Cardiovascular: S1, S2 heard. No murmurs, gallops or rubs. Regular rate and rhythm. Respiratory: Some crepitations present in both pulmonary bases. Patient not using any accessory muscles or having work of breathing. Abdomen: Soft, a little bit distended. Nontender to palpation. Bowel sounds present. No organomegaly. There is a old infraumbilical scar noted. Extremities: Mild pitting edema in both lower extremities, but there is less edema lateral aspect of the thigh. Neurologic: Patient is a little bit more awake today. Open eyes, follows commands. Had a conversation. LABORATORY DATA: Hemoglobin 10.8, platelets 84,000. ASSESSMENT AND PLAN: 1. Acute congestive heart failure associated with severe tricuspid regurgitation. Clinically, this patient is looking stable. Currently, is receiving 40 mg IV Lasix daily. Her renal function has stabilized at 1.3. At this point, we will continue to monitor this patient closely. 2. Anemia secondary to retroperitoneal hematoma. That condition is resolving slowly. Hemoglobin is much better. The CT scan that actually we checked because hemoglobin has dropped yesterday he is definitely less ascites. At this point, no surgical approach recommended. We will continue to monitor this patient closely. Surgery is also following. 3. Atrial fibrillation with rapid ventricular response. Heart rate is under control. We will continue with same management. 4. Transaminitis secondary to shock liver. Stable. We will continue to monitor. 5. Oliguric acute kidney injury. That condition is definitely better and is also stable. We will continue to monitor. 6. Escherichia coli urinary tract infection. We will continue with ceftriaxone. 7. Altered mental status. Actually, the patient is a little bit more awake today. We will continue monitoring this patient closely. cc: Manohar Miller MD MTDD
--- NOTE | 2018-10-22 15:30 | CARDIOLOGY PROGRESS NOTE ---
DATE: 10/22/2018 SUBJECTIVE: Ms. Sullivan wakes to verbal stimuli. She has no complaints of pain presently. She is breathing fine per her. She has no palpitations. OBJECTIVE: She is afebrile. Heart rate 92, blood pressure 123/69. General: She is in no acute distress. Cardiovascular: She sounds to be in an irregularly irregular rhythm. She has no obvious murmurs present. She has no lower extremity edema. Chest: Relatively clear with poor inspiratory effort. Abdomen: Soft and nontender. PERTINENT DATA: Laboratory ga, her white count is 11.6, hematocrit 33 which is up from 22 yesterday, and her platelet count is 84. Her sodium is 136, potassium 3.6, BUN 26, creatinine 0.7 which is improved from yesterday, albumin 2.6. She did receive blood today. ASSESSMENT: Ms. Sullivan is an 83-year-old female with atrial fibrillation who had a retroperitoneal hemorrhage. She has severe TR, moderate MR. PLAN: She seems to be rate controlled presently. I do not have any acute cardiovascular recommendations. We may need to consider some mild diuresis as she did get some blood yesterday. She is on some diuretics presently. Lasix 20 mg IV daily. Chest x-ray is ordered for the morning. cc: Narinder Galeano MD
[2018-10-23] MEDS: D5W 1,000 ML IV SCH ×3 (00:24→16:40)
[2018-10-23] MEDS: MORPHINE IV PRN ×4 (04:38→22:48)
[2018-10-23] MEDS: CARDIZEM PO SCH ×3 (05:02→21:29)
[2018-10-23 05:10] LABS: ALLEN TEST YES; BE 11.3 mmoll (-3.0-3.0); BLOOD TYPE ARTERIAL; HCO3-(ACT) 33.7 mmoll (20.0-26.0); METHB 1.2 % (0.0-1.5); O2(CT) 15.3 mL/dL (15.0-23.0); PCO2(98.6) 46 mmHg (35-45); PO2(98.6) 81 mmHg (60-100); SAMPLE BLOOD; SAO2 97.9 % (95.0-100.0); THB 11.4 g/dL (11.5-17.4)
[2018-10-23 05:12] LABS: MODALITY CANNULA
[2018-10-23 06:32] LABS: BASO# 0.03 X1000 (0.0-0.2); BASO% 0.2 % (0.0-0.8); EOS% 1.4 % (0.0-10.0); HEMATOCRIT 36.2 % (37.0-47.0); HEMOGLOBIN 11.6 g/dL (12.0-16.0); IMM GRAN# 0.26 X1000 (0.0-0.04); IMM GRAN% 1.9 % (0.0-0.5); LYMPH% 11.4 % (20.5-51.1); MCV 84.2 FL (81-99); MONO# 1.06 X1000 (0.11-0.59); MONO% 7.6 % (1.7-9.3); NEUT# 10.83 X1000 (1.4-6.5); NEUT% 77.5 % (42.2-75.2); PLT 90 X1000 (130-400); RDW 22.1 % (11.5-14.5); WBC 13.98 X1000 (4.8-10.8)
[2018-10-23 06:58] LABS: AGAP 7; ALBUMIN 2.6 g/dL (3.5-5.0); ALKALINE PHOSPHATASE 134 U/L (32-104); BUN 18 mg/dL (8-22); CALCIUM 8.2 mg/dL (8.8-10.2); CHLORIDE 94 mmol/L (98-107); COSMO 271; CREATININE 0.6 mg/dL (0.5-0.9); ESTIMATED GFR > 60; GLUCOSE 118 mg/dL (70-104); GOT 35 U/L (10-30); GPT 81 U/L (10-36); POTASSIUM 3.5 mmol/L (3.5-5.1); SODIUM 134 mmol/L (136-145); TCO2 33 mmol/L (25-35); TOTAL BILIRUBIN 0.99 mg/dL (0.20-1.00); TOTAL PROTEIN 5.3 g/dL (6.3-8.3)
[2018-10-23] MEDS: HUMALOG SUBQ SCH ×4 (06:59→21:29)
[2018-10-23 07:35] LABS: EOS 1 % (1-10); LYMPHS 12 % (21-51); MONO 8 % (1-9); SEGS 79 % (42-75)
--- NOTE | 2018-10-23 08:09 | Diag Imaging Result Doc PS360 ---
EXAM: CHEST-PORTABLE INDICATION: dyspnea TECHNIQUE: One view COMPARISON: 10/22/2018 FINDINGS: Support tubes and lines are in stable positions. Inspiration is suboptimal similar to the previous study. Retrocardiac atelectasis and/or infiltrate is essentially stable. There is probably a small left effusion that is also stable. No new consolidation is identified. Cardiac silhouette is stable. IMPRESSION: Stable chest. Electronically signed by Audie Chin 10/23/2018 8:06 AM
[2018-10-23] MEDS: LASIX IV SCH ×2 (08:15→21:29)
[2018-10-23] MEDS: LEVEMIR SUBQ SCH (08:16)
[2018-10-23] MEDS: PROTONIX IV SCH (09:35)
[2018-10-23] MEDS: ROCEPHIN 1 GM in NS 50 ML IV SCH (09:36)
[2018-10-23] MEDS ORDERED: LASIX IV ONE (09:45)
--- NOTE | 2018-10-23 10:12 | PROGRESS NOTE ---
DATE: 10/23/2018 SUBJECTIVE: The patient is definitely more awake today. The patient reports having had some water and some juice with no choking or any other problem. No signs of bleeding. OBJECTIVE: Vital Signs: Temperature 96.7 degrees, heart rate 91, respiratory rate 21, blood pressure 133/65, O2 saturation 97% on 2 L nasal cannula. General Examination: This is a chronically ill-looking, 83-year-old female, lying in bed, in no acute distress. HEENT: Head is normocephalic, atraumatic. Neck: No JVD noted. No carotid bruits. No lymphadenopathy. Cardiovascular: S1, S2 heard. Irregularly irregular but no murmurs, gallops, or rubs noted. Respiratory: Some crepitations present in both pulmonary bases. Patient is not using any accessory muscles or having work of breathing. Abdomen: Soft. A little bit distended but nontender to palpation. Bowel sounds present. No organomegaly noted. There is an old umbilical scar noted. Extremities: Mild pitting edema in both lower extremities. Less edema in the lateral aspect of the thigh. Neurological: Patient is definitely more awake and more alert. Opens eyes. Patient is oriented to time and place. Follow commands. We had a good conversation. Speech is coherent. LABORATORY DATA: White cell count 13.98, hemoglobin 11.6, hematocrit 36.2, platelets 90,000. ABG shows pH 7.50 with pCO2 46. BMP shows sodium 134, chloride 95, glucose 118. ASSESSMENT AND PLAN: 1. Acute congestive heart failure associated with severe tricuspid regurgitation. Clinically, this patient is stable. She is receiving Lasix 40 mg IV daily. Considering that her hemoglobin is stable and she is not volume depleted anymore, I think we can go up in the dose and give her 40 mg IV q.12 hours. We will continue to monitor renal function strictly. 2. Anemia secondary to retroperitoneal hematoma. That condition is resolving. Hemoglobin is 11.8. Not requiring any more blood transfusion. We will continue with the same management. 3. Atrial fibrillation with rapid ventricular response. Heart rate is well controlled. Will continue with the same management. 4. Transaminitis secondary to shock liver. Stable. Does continue to improve. We will continue to monitor. 5. Acute kidney injury. Almost resolved. We will continue to monitor BMP. 6. Escherichia coli urinary tract infection. We will continue with ceftriaxone. 7. Metabolic encephalopathy. Patient continues to be more alert and awake. 8. Nutritional status. Patient has been on tube feedings but considering that her mental status is much better, I think we can do a GI soft diet and see how this patient does. 9. Disposition. Patient will be transferred to [facility]. cc: Manohar Miller MD MTDD
--- NOTE | 2018-10-23 10:50 | PROGRESS NOTE ---
DATE: 10/23/2018 Ms. Sharon Sullivan still remains in the ICU. She is sitting up, eating breakfast. Her hematocrit remained stable, suggesting no ongoing bleeding from a retroperitoneal hematoma. She seems to be clinically improving. cc: Elizabeth Orellana MD
[2018-10-24] MEDS: D5W 1,000 ML IV SCH ×2 (00:45→08:32)
[2018-10-24 05:11] LABS: ALLEN TEST YES; BE 12.4 mmoll (-3.0-3.0); BLOOD TYPE ARTERIAL; HCO3-(ACT) 34.5 mmoll (20.0-26.0); METHB 0.9 % (0.0-1.5); O2(CT) 17.2 mL/dL (15.0-23.0); O2HB 92.7 % (95.0-99.0); PCO2(98.6) 48 mmHg (35-45); PO2(98.6) 68 mmHg (60-100); SAMPLE BLOOD; SAO2 95.7 % (95.0-100.0); THB 13.2 g/dL (11.5-17.4)
[2018-10-24 05:13] LABS: MODALITY CANNULA
[2018-10-24] MEDS: HUMALOG SUBQ SCH ×5 (06:23→22:04)
[2018-10-24 06:30] LABS: BASO# 0.02 X1000 (0.0-0.2); BASO% 0.1 % (0.0-0.8); EOS# 0.11 X1000 (0.0-0.7); EOS% 0.8 % (0.0-10.0); HEMATOCRIT 37.5 % (37.0-47.0); HEMOGLOBIN 11.8 g/dL (12.0-16.0); IMM GRAN# 0.28 X1000 (0.0-0.04); IMM GRAN% 1.9 % (0.0-0.5); LYMPH% 11.6 % (20.5-51.1); MCH 26.5 PG (27-31); MCHC 31.5 g/dL (33-37); MCV 84.1 FL (81-99); MONO# 0.98 X1000 (0.11-0.59); MONO% 6.7 % (1.7-9.3); NEUT# 11.51 X1000 (1.4-6.5); NEUT% 78.9 % (42.2-75.2); PLT 98 X1000 (130-400); RBC 4.46 XMIL (4.2-5.4); RDW 22.4 % (11.5-14.5)
[2018-10-24] MEDS: CARDIZEM PO SCH ×3 (06:33→22:04)
[2018-10-24 06:50] LABS: AGAP 8; ALB/GLOB RATIO 0.9; ALBUMIN 2.6 g/dL (3.5-5.0); ALKALINE PHOSPHATASE 108 U/L (32-104); BUN 13 mg/dL (8-22); CALCIUM 8.2 mg/dL (8.8-10.2); CHLORIDE 90 mmol/L (98-107); COSMO 263; CREATININE 0.6 mg/dL (0.5-0.9); ESTIMATED GFR > 60; GLUCOSE 65 mg/dL (70-104); GOT 36 U/L (10-30); GPT 76 U/L (10-36); POTASSIUM 3.4 mmol/L (3.5-5.1); SODIUM 132 mmol/L (136-145); TCO2 34 mmol/L (25-35); TOTAL BILIRUBIN 0.92 mg/dL (0.20-1.00); TOTAL PROTEIN 5.4 g/dL (6.3-8.3)
--- NOTE | 2018-10-24 07:07 | Diag Imaging Result Doc PS360 ---
EXAM: CHEST-PORTABLE 10/24/2018 HISTORY: dyspnea TECHNIQUE: AP portable at 0548 COMMENT: There is retrocardiac opacity consistent with atelectasis or pneumonia. There is a small amount of pleural fluid bilaterally. Compared to 10/23/2018 the left lower lobe opacity is slightly worse. IMPRESSION: Worsened atelectasis versus pneumonia left lower lobe. Electronically signed by Ayo Jordan 10/24/2018 7:05 AM
[2018-10-24] MEDS: MORPHINE IV PRN ×2 (07:12→11:55)
[2018-10-24] MEDS ORDERED: VANCOMYCIN IV PER PHARMACY MISC SCH (08:15)
[2018-10-24] MEDS: LASIX IV SCH ×2 (08:33→22:04)
[2018-10-24] MEDS: MAXIPIME 1 GM in NS 50 ML IV SCH ×2 (08:33→22:04)
[2018-10-24] MEDS: PROTONIX IV SCH ×2 (08:33→10:05)
--- NOTE | 2018-10-24 09:45 | PROGRESS NOTE ---
DATE: 10/24/2018 SUBJECTIVE: Patient continues to improve. Clinically, she is more awake, able to have a good conversation with me. Reports that she was able to eat normally yesterday. OBJECTIVE: Vital Signs: Temperature 98.3 degrees, heart rate 100, respiratory rate 16, blood pressure 146/69, O2 saturation 95% on 2 L nasal cannula. General: This is a chronically ill- looking 83-year-old, female lying in bed, in no acute distress. Cardiovascular: S1, S2 heard. Irregularly irregular but no murmurs, gallops, or rubs noted. Respiratory: Some crepitations still present in both pulmonary bases. Patient is not using any accessory muscles or having work of breathing. Abdomen: A little bit distended, soft, nontender to palpation. Bowel sounds present. No organomegaly. There is an old umbilical scar noted. Extremities: Mild pitting edema still present in both lower extremities, less edema on the lateral aspect of the thigh. Neurological: Patient definitely is more awake and alert, moves 4 extremities. Speech is coherent. LABORATORY DATA: White cell count 14.6, hemoglobin 11.8, hematocrit 35.5, platelets 98,000. ABG shows pH 7.50, pCO2 of 48, pO2 68, with potassium 3.4. Sodium 132, blood sugar 65. ALT 36, AST 76. ASSESSMENT AND PLAN: 1. Congestive heart failure associated with severe tricuspid regurgitation. Clinically, this patient is stable, requiring 2 liters of oxygen by nasal cannula. I think she is getting better. Currently, she is receiving Lasix 40 mg IV q.12 hours. We will continue to monitor renal function. Urine output as well. 2. Anemia secondary to retroperitoneal hematoma. Hemoglobin is 11.8 today. She has received so far 6 units of blood and during the last 2 days, hemoglobin has been stable so far. At this point, we will continue with the same management. 3. Atrial fibrillation with rapid ventricular response. Heart rate is under control. We will continue with the same medications. 4. Transaminitis secondary to shock liver, stable. Those continue to improve. We will continue to monitor comprehensive metabolic panel. 5. Acute kidney injury, resolved. 6. Escherichia coli urinary tract infection. We will continue with ceftriaxone. 7. Left lower lobe pneumonia. The patient has been on ceftriaxone. But considering that her white cell count continues to be high, we will switch to vancomycin and cefepime, and will see how she does. 8. Nutritional status. The patient has perera on tube feedings, but now she is more awake and alert since yesterday, she is eating by mouth with no problems. 9. Metabolic encephalopathy, resolved. Patient continues to be alert and awake. 10. Disposition. At this point, the patient is definitely more stable. I think she can be sent out of the [facility], and will reconsult physical therapy and occupational therapy and most likely, she will need to go to rehab facility. cc: Manohar Miller MD
[2018-10-24] MEDS: LEVEMIR SUBQ SCH (10:06)
[2018-10-24] MEDS ORDERED: VANCOMYCIN 1,650 MG in NS 250 ML IV ONE (11:00)
[2018-10-24] MEDS ORDERED: MORPHINE IV PRN (15:59)
[2018-10-24] MEDS ORDERED: LOPRESSOR IV PRN (18:55)
[2018-10-24] MEDS: MUCOMYST 20% INH SCH (20:10)
--- NOTE | 2018-10-25 00:01 | GENERAL SURGERY PROGRESS NOTE ---
DATE: 10/24/2018 Ms. Sullivan is lying in bed, awake and alert, comfortable. She denies any abdominal pain. Her hemoglobin is 11.8. There is no evidence of ongoing bleeding. cc: Yousuf Mantilla MD
[2018-10-25] MEDS: NORCO-5 PO PRN ×2 (02:09→10:07)
[2018-10-25] MEDS: CARDIZEM PO SCH ×4 (02:09→20:33)
--- NOTE | 2018-10-25 06:48 | Diag Imaging Result Doc PS360 ---
EXAM: CHEST-1 VIEW HISTORY: SOB TECHNIQUE: Chest single view COMPARISON: 10/24/2018 FINDINGS: Poor inspiratory effort. The heart is not enlarged. No change in the right-sided PICC line. The vessels are not distended. Infiltrates or atelectasis in the left base persist. No effusion identified. There are scattered granuloma. IMPRESSION: Slight interval improvement. Electronically signed by Laron Duvall 10/25/2018 6:46 AM
[2018-10-25] MEDS: HUMALOG SUBQ SCH ×4 (06:56→22:40)
[2018-10-25 08:11] LABS: BASO# 0.02 X1000 (0.0-0.2); BASO% 0.1 % (0.0-0.8); EOS# 0.04 X1000 (0.0-0.7); EOS% 0.3 % (0.0-10.0); HEMATOCRIT 38.2 % (37.0-47.0); HEMOGLOBIN 12.3 g/dL (12.0-16.0); IMM GRAN# 0.19 X1000 (0.0-0.04); IMM GRAN% 1.3 % (0.0-0.5); LYMPH# 1.88 X1000 (1.2-3.4); LYMPH% 13.2 % (20.5-51.1); MCHC 32.2 g/dL (33-37); MONO% 7.7 % (1.7-9.3); NEUT# 11.03 X1000 (1.4-6.5); NEUT% 77.4 % (42.2-75.2); PLT 131 X1000 (130-400); RBC 4.55 XMIL (4.2-5.4); RDW 22.6 % (11.5-14.5); WBC 14.26 X1000 (4.8-10.8)
[2018-10-25 08:31] LABS: AGAP 8; BUN 13 mg/dL (8-22); CALCIUM 8.7 mg/dL (8.8-10.2); CHLORIDE 93 mmol/L (98-107); COSMO 269; CREATININE 0.5 mg/dL (0.5-0.9); ESTIMATED GFR > 60; GLUCOSE 82 mg/dL (70-104); POTASSIUM 3.4 mmol/L (3.5-5.1); SODIUM 135 mmol/L (136-145); TCO2 34 mmol/L (25-35)
[2018-10-25 08:43] LABS: ANISOCYTOSIS 1+; BANDS 2 % (0-1); HYPOCHROM 1+; LYMPHS 10 % (21-51); MONO 4 % (1-9); POIKILOCYTOSIS 1+; SEGS 84 % (42-75)
[2018-10-25 08:44] LABS: LARGE PLATELETS 1+
[2018-10-25] MEDS: MAXIPIME 1 GM in NS 50 ML IV SCH ×2 (10:06→20:33)
[2018-10-25] MEDS: LASIX IV SCH (10:06)
[2018-10-25] MEDS: PROTONIX IV SCH (10:06)
--- NOTE | 2018-10-25 12:39 | PROGRESS NOTE ---
DATE: 10/25/2018 SUBJECTIVE: Patient denies any chest discomfort or dyspnea. On supplemental oxygen per nasal cannula. She does report some left hip pain. She has not been getting up out of bed much yet. OBJECTIVE: Vital Signs: Blood pressure 149/84. Heart rate 90. Oxygen saturation 98% on nasal cannula oxygen. There is no significant jugular venous distention. Chest: Clear to auscultation bilaterally. Cardiac Exam: Reveals an irregular rate and rhythm without appreciable murmur or gallop. Abdomen: Examination of the abdomen reveals some left flank ecchymosis. Extremities: Without edema. LABORATORY DATA: Includes white blood cell count 14.26, hematocrit 38.2, hemoglobin 12.3, platelet count 131. Sodium 135, potassium 3.4, chloride 93, carbon dioxide 34, BUN 13, creatinine 0.5, glucose 82. IMPRESSION: 1. Recent acute on chronic systolic heart failure predominantly right-sided in the setting of severe tricuspid regurgitation, moderate mitral regurgitation, and recent gnosticist of atrial fibrillation. The patient presently appears to be near euvolemic. 2. Anemia. Related to retroperitoneal hemorrhage while anticoagulated. This appears to have stabilized after transfusion of a total of 6 units packed red blood cells and withdrawal of anticoagulation. 3. Hypertension. 4. Atherosclerotic coronary disease with history of previous angioplasty/stenting. 5. Type 2 diabetes mellitus. 6. Hyperlipidemia. RECOMMENDATIONS: 1. Continue current cardiovascular regimen unchanged, including low-dose Lasix daily. 2. Conservative cardiovascular management overall. cc: Yoav Eagle MD
[2018-10-25] MEDS ORDERED: KLOR-CON PO ONE (14:30)
[2018-10-25] MEDS: LEVEMIR SUBQ SCH (14:46)
[2018-10-25] MEDS: VANCOMYCIN 1,150 MG in NS 250 ML IV SCH (14:51)
[2018-10-25] MEDS: MUCOMYST 20% INH SCH ×2 (15:46→20:07)
--- NOTE | 2018-10-25 16:04 | PROGRESS NOTE ---
DATE: 10/25/2018 SUBJECTIVE: This patient is doing much better. Clinically she looks stable. She is awake. She is oriented x3. Family members at the bedside. She is tolerating p.o. She does have generalized weakness and likely she will need to go to a rehab center. OBJECTIVE: Vital Signs: Temperature 97.7 degrees, pulse 94, respiratory rate 18, blood pressure 147/62, oxygen saturation 96 on 3 L of nasal cannula. HEENT: Head normocephalic. No trauma. PERRLA. Neck: Supple. No JVD. No masses. Central trachea. Chest: Irregularly irregular rate and rhythm. Decreased breath sounds at the bases with some crepitus. Abdomen: Soft, nontender, nondistended. No hepatosplenomegaly. Extremities: No edema. No clubbing. No cyanosis. Neurological examination: The patient is alert and oriented x3. No focal deficits. LABORATORY: WBC 14.2, hemoglobin 12.3, hematocrit 38.2, platelets 131. Sodium 135, potassium 3.4, chloride 93, bicarbonate 34, BUN 13, creatinine 0.5, glucose 82, calcium 8.7. ASSESSMENT AND PLAN: 1. Congestive heart failure exacerbation. She has an ejection fraction of 55%. There is some abnormal motion of the interventricular septum due to marked dilation of the right ventricle with volume and pressure overload. The tricuspid valve appeared to have impaired coaptation causing a severe decrease of regurgitation. The mitral valve appears to be abnormal, possibly a ruptured chordae with a moderate degree of mitral regurgitation. We will continue with the same management. Cardiology Department on board. She is doing much better. She seems to be close to be euvolemic. 2. Anemia secondary to retroperitoneal hematoma. Hemoglobin today is better at 12.3, as well as the platelet count which was low. Will continue with the same management. She received so far 6 unit of packed red blood cells. 3. Atrial fibrillation with rapid ventricular response. Heart rate has been under control. We will continue with the same medication. 4. Transaminitis secondary to shock liver, getting better. 5. Acute kidney injury. Resolved. 6. Escherichia coli urinary tract infection. 7. Left lower lobe pneumonia. Since the white blood count is still elevated, it has been decided to switch antibiotics to vancomycin and cefepime. 8. Nutritional status. Continue with the same management. 9. Metabolic encephalopathy, resolved. 10. Disposition: This patient is doing better, but she is extremely weak. Likely she will need to go to a rehabilitation center. 11. Type 2 diabetes. She has been having episodes of hypoglycemia. I will hold her long-acting insulin, and I will continue with just sliding scale insulin. 12. Thrombocytopenia, resolved. 13. Hypokalemia. I will replace the potassium. cc: Kg Wen MD
[2018-10-25] MEDS: DUONEB (A & A) INH PRN (20:07)
[2018-10-26] MEDS: CARDIZEM PO SCH ×4 (01:34→20:03)
[2018-10-26] MEDS: HUMALOG SUBQ SCH ×4 (06:12→21:51)
[2018-10-26] MEDS: MUCOMYST 20% INH SCH ×2 (07:51→19:55)
[2018-10-26] MEDS: DUONEB (A & A) INH PRN ×2 (07:51→19:55)
[2018-10-26 08:29] LABS: BASO# 0.03 X1000 (0.0-0.2); BASO% 0.2 % (0.0-0.8); EOS# 0.04 X1000 (0.0-0.7); EOS% 0.3 % (0.0-10.0); HEMATOCRIT 41.3 % (37.0-47.0); HEMOGLOBIN 12.9 g/dL (12.0-16.0); IMM GRAN% 0.8 % (0.0-0.5); LYMPH# 1.57 X1000 (1.2-3.4); LYMPH% 11.8 % (20.5-51.1); MCH 26.8 PG (27-31); MCHC 31.2 g/dL (33-37); MCV 85.7 FL (81-99); MONO# 0.85 X1000 (0.11-0.59); MONO% 6.4 % (1.7-9.3); MPV 11.6 FL (7.4-10.4); NEUT# 10.74 X1000 (1.4-6.5); NEUT% 80.5 % (42.2-75.2); PLT 183 X1000 (130-400); RBC 4.82 XMIL (4.2-5.4); RDW 23.4 % (11.5-14.5); WBC 13.33 X1000 (4.8-10.8)
[2018-10-26 08:35] LABS: AGAP 10; ALKALINE PHOSPHATASE 128 U/L (32-104); BUN 11 mg/dL (8-22); CALCIUM 8.6 mg/dL (8.8-10.2); CHLORIDE 93 mmol/L (98-107); COSMO 274; CREATININE 0.7 mg/dL (0.5-0.9); ESTIMATED GFR > 60; GLUCOSE 106 mg/dL (70-104); GOT 51 U/L (10-30); GPT 74 U/L (10-36); POTASSIUM 3.6 mmol/L (3.5-5.1); SODIUM 137 mmol/L (136-145); TCO2 34 mmol/L (25-35); TOTAL BILIRUBIN 1.43 mg/dL (0.20-1.00); TOTAL PROTEIN 5.9 g/dL (6.3-8.3)
[2018-10-26] MEDS: NORCO-5 PO PRN ×2 (11:08→20:04)
[2018-10-26] MEDS: MAXIPIME 1 GM in NS 50 ML IV SCH (11:08)
[2018-10-26] MEDS: PROTONIX IV SCH (11:08)
[2018-10-26] MEDS: SODIUM CHLORIDE 0.9% INJ SCH (11:08)
[2018-10-26] MEDS: LASIX IV SCH (11:12)
[2018-10-26] MEDS: VANCOMYCIN 1,150 MG in NS 250 ML IV SCH (11:55)
[2018-10-26] MEDS: LEVAQUIN 500 MG/D5W 500 MG/100 ML IVPB IV SCH (14:42)
--- NOTE | 2018-10-26 15:22 | PROGRESS NOTE ---
DATE: 10/26/2018 SUBJECTIVE: Patient is doing better. She looks stable. She is severely weak. She is oriented x 3. The plan is to send this patient to a rehab center. OBJECTIVE: Vital Signs: Temperature 97.9, pulse 112, respiratory rate 17, blood pressure 140/72, oxygen saturation 97% on 2 L of nasal cannula. HEENT: Head normocephalic. No trauma. PERRLA. Neck: Supple. No JVD. No masses. Central trachea. Chest: Decreased breath sounds at the bases with some crepitus. Cardiovascular: Irregularly irregular rate and rhythm. Abdomen: Soft, nontender, nondistended. No hepatosplenomegaly. Extremities: No edema. No clubbing. No cyanosis. Neurologic: The patient is alert and oriented x 3. No focal deficits. LABORATORY: WBC 13.3, hemoglobin 12.9, hematocrit 41.3, platelets 183,000. Sodium 137, potassium 3.6, chloride 93, bicarbonate 34, BUN 11, creatinine 0.7, glucose 106 , calcium 8.6, albumin 3. ASSESSMENT AND PLAN: 1. Congestive heart failure exacerbation, ejection fraction is around 50%. There is some abnormal motion in the interventricular septum due to marked dilation of the right ventricle with volume and pressure overload. The tricuspid valve appears to have impairment causing a severe regurgitation. The mitral valve appears to be abnormal, possibly a ruptured chordae with a moderate degree of mitral regurgitation. We will continue with the same management. Cardiology Department on board. Continue with diuretics. 2. Anemia secondary to retroperitoneal hematoma. Hemoglobin has been stable and going up. 3. Atrial fibrillation with rapid ventricular response. Heart rate has been under control. Will continue with the same medication. 4. Transaminitis, likely secondary to shock liver. This has been stabilizing slowly. 5. Acute kidney injury, resolved. 6. Escherichia coli urinary tract infection. Continue with antibiotics. Sensitive to levofloxacin. 7. Left lower lobe pneumonia. I have placed this patient today on levofloxacin. I have stopped his vancomycin and cefepime. 8. Nutritional status. Continue with same management. 9. Metabolic encephalopathy, resolved. 10. Type 2 diabetes. Continue with sliding scale insulin and pattern of blood sugar. 11. Thrombocytopenia, resolved. 12. Hypokalemia, resolved. 13. Disposition: This patient is extremely weak. Likely she will need to go to a rehab center. 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 cc: Kg Wen MD [facility]
[2018-10-27] MEDS: CARDIZEM PO SCH ×3 (01:25→13:35)
[2018-10-27] MEDS: NORCO-5 PO PRN ×2 (01:25→08:53)
[2018-10-27] MEDS: HUMALOG SUBQ SCH ×3 (05:59→16:00)
[2018-10-27 07:59] LABS: BASO# 0.05 X1000 (0.0-0.2); BASO% 0.6 % (0.0-0.8); EOS# 0.04 X1000 (0.0-0.7); EOS% 0.5 % (0.0-10.0); HEMATOCRIT 39.2 % (37.0-47.0); HEMOGLOBIN 12.3 g/dL (12.0-16.0); IMM GRAN# 0.08 X1000 (0.0-0.04); IMM GRAN% 0.9 % (0.0-0.5); LYMPH# 1.25 X1000 (1.2-3.4); LYMPH% 14.4 % (20.5-51.1); MCHC 31.4 g/dL (33-37); MONO# 0.74 X1000 (0.11-0.59); MONO% 8.5 % (1.7-9.3); MPV 11.4 FL (7.4-10.4); NEUT# 6.53 X1000 (1.4-6.5); NEUT% 75.1 % (42.2-75.2); PLT 188 X1000 (130-400); RBC 4.56 XMIL (4.2-5.4); RDW 23.5 % (11.5-14.5); WBC 8.69 X1000 (4.8-10.8)
[2018-10-27] MEDS: DUONEB (A & A) INH PRN (08:01)
[2018-10-27] MEDS: MUCOMYST 20% INH SCH (08:01)
[2018-10-27] MEDS: LASIX IV SCH (08:53)
[2018-10-27] MEDS: PROTONIX IV SCH (08:53)
[2018-10-27] MEDS ORDERED: CALMOSEPTINE OINTMENT TOP PRN (10:12)
[2018-10-27] MEDS: LEVAQUIN 500 MG/D5W 500 MG/100 ML IVPB IV SCH (13:35)
--- NOTE | 2018-10-27 13:45 | PROGRESS NOTE ---
DATE: 10/27/2018 SUBJECTIVE: Patient denies shortness of breath or chest discomfort on room air. She still is weak. OBJECTIVE: Vital signs: Blood pressure 127/69, heart rate 92, oxygen saturation 97% on room air. Neck: There is no significant jugular venous distention. Chest: Clear to auscultation. Cardiac Exam: Reveals an irregular rate and rhythm without appreciable murmur or gallop. There is no evidence of peripheral edema. LABORATORY DATA: Includes a white blood cell count of 8.69, hematocrit 39.2, hemoglobin 12.5, platelet count 188,000. IMPRESSIONS: 1. Recent acute on chronic systolic heart failure, predominantly right-sided, in the setting of severe tricuspid regurgitation, moderate mitral regurgitation, and recent pentecostalism of atrial fibrillation. Patient presently appears to be near euvolemic. 2. Anemia, worsened with retroperitoneal hemorrhage while anticoagulated with Lovenox. This appears to have stabilized. 3. Hypertension. 4. Atherosclerotic coronary disease with previous angioplasty/stenting. 5. Type 2 diabetes mellitus. 6. Hyperlipidemia. RECOMMENDATIONS: 1. Continue current cardiovascular regimen unchanged with diltiazem for rate control and daily Lasix to maintain current volume status. 2. Ultimately patient should be considered for anticoagulation for thromboembolic risk protection. However, given recent retroperitoneal hemorrhage, this certainly needs to wait until she has had considerable more recovery. cc: Yoav Eagle MD
--- NOTE | 2018-10-27 15:19 | DISCHARGE SUMMARY ---
ADMISSION DATE: 10/11/2018 DISCHARGE DATE: DISCHARGE DIAGNOSES: 1. Congestive heart failure (CHF) exacerbation. 2. Anemia secondary to retroperitoneal hematoma. 3. Atrial fibrillation with rapid ventricular response (RVR), resolved. 4. Transaminitis. 5. Acute kidney injury, resolved. 6. Escherichia coli (E coli) urinary tract infection. 7. Left lower lobe pneumonia. 8. Metabolic encephalopathy, resolved. 9. Type 2 diabetes. 10. Thrombocytopenia, resolved. 11. Hypokalemia, resolved. 12. Sepsis, resolved. 13. Cardiogenic Shock 14. Respiratory failure s/p extubation HOSPITAL COURSE: An 83-year-old female with a past medical history of coronary artery disease status post stenting followed by Dr. Hanson, hypertension, hyperlipidemia , diabetes, and hypothyroidism. She presented directly from Dr. Milad Méndez' office with a new onset of atrial fibrillation with rapid ventricular response. Her symptoms began around 2 weeks before admission. She was complaining of dizziness which became progressively worse. She was admitted on 10/11/2018. When she went to Dr. Méndez' office, per report she was diagnosed with an inner ear problem. However, she continued to get worse with her dizziness, and she went back to Dr. Méndez the day of admission on 10/11/2018 and EKG showed atrial fibrillation with rapid ventricular response. Her dizziness appeared to be initially position when she stands up, but she has had no syncope. She denied any unilateral weakness. No slurred speech or confusion. No changes in her vision. She has had some abdominal distention for the past 2 weeks as well but no nausea or vomiting but decreased p.o. intake. She denies any overt chest pain, but she but she does have some palpitation, and she does have deep breath when the palpitations gets worse, which is when she stands up. She denies any lower extremity edema. No orthopnea, no PND. No fever, no chills. No cough. In the ER, she was noted to be of course in atrial fibrillation/RVR. Laboratory showed microcytic anemia as well as significant transaminitis and mild acidosis with minimal elevation of her anion gap. She appeared to be a little bit dehydrated. She has been started on Cardizem drip, and she was transferred to the unit for treatment and evaluation. Since her CHADS-VASc score was elevated at this point, anticoagulation was recommended. An abdominal ultrasound was requested and showed a small amount of ascites. Echocardiogram showed a left ventricular systolic function at the lower limits of normal with abnormal motion of the septum, significantly enlarged right ventricle with mild global hypokinesis, wide open tricuspid regurgitation , suspected flail posterior leaflet of the mitral valve, possible rupture chordae, unremarkable aortic valve and significant enlargement of the atrium. The next day of admission, she was feeling stronger. No evidence of DVT on the bilateral lower extremity with venous ultrasound. Cardiology Department was consulted, and they recommended to continue with anticoagulation with Lovenox twice a day, continue with diltiazem, diurese this patient with Lasix, and CT angiogram to rule out pulmonary embolism, which in fact did not show any PE. Gastroenterology department was consulted because of the elevated liver function tests that could be congestive hepatopathy versus ischemic injury to the liver. Tylenol level was normal. Hepatitis profile was nonreactive. HIDA scan was ordered. CT of the abdomen showed edematous changes consistent with anasarca, bilateral pleural effusion, bibasilar atelectasis, and ascites, and the possibility of ileus cannot be ruled out. Because of her anion gap metabolic acidosis secondary to lactic acid, initially we thought this could be a result of an initial septic shock; however, that was not completely ruled out and probably that was initially because of hypoperfusion from the poor cardiac output. They have requested a pulmonary consult that recommended continue with diuretics, antibiotics, and pressors. A transesophageal echocardiogram was performed that showed moderate to moderately severe degree of mitral regurgitation, severe tricuspid regurgitation, preserved left ventricular systolic function. No aortic stenosis. No regurgitation. No evidence of atrial shunt. Possible disruption of the septal leaflet of the tricuspid valve as well. This patient had some degree of acute kidney injury that was getting worse, probably because of the diuretics and overall condition. Nephrology department consulted, and probably that was secondary to acute tubular necrosis secondary to sepsis and IV contrast, but her condition was improving on a daily basis. Then the patient was getting worse, with signs of shock, also severely anemic, It looks like the type of shock of this patient was cardiogenic and the elevation of the LFTs was probably related to shock liver as well. Eventually she was intubated due to respiratory failure due to likely cardiogenic shock, anasarca, but she was getting better on a daily basis , and this cardiogenic shock was likely related probably due to fulminant right-sided heart failure and had to be intubated. Then, the patient was extubated. She continues to improve on a daily basis. On 10/19/2017, Surgery Department was consulted because we found an abdominal and pelvic ultrasound that showed large new left retroperitoneal hematoma. Surgery Department consulted, and they thought that probably this is related to her Lovenox. They agreed that her anticoagulation should be stopped, and we did serial hematocrits so we monitored this on a daily basis. At some point, she received 6 units of PRBCs because of her low hemoglobin that dropped to 6.4 on 10/18/2018. After those transfusions, she was extubated, and she was recovering on a daily basis. She seems to be doing much better today. Cardiology Department following this patient closely. We did not do any kind of surgery. There is no evidence of ongoing bleeding, and because of that, we are not going to continue with anticoagulation for now. She will be discharged to a rehabilitation center, and she will be followed up by her primary care doctor and Cardiology Department in 1 month. DISCHARGE MEDICATION: 1. Levothyroxine 125 mcg p.o. daily. 2. Glyburide/metformin 1 tablet p.o. b.i.d. 3. Furosemide 20 mg p.o. daily. 4. Atorvastatin 1 tablet p.o. daily 20 mg. 5. Lisinopril 10 mg p.o. daily. 6. Insulin detemir 35 units subcutaneously daily. 7. [place] 5 one tablet p.o. q.6 h. p.r.n. 8. Diltiazem CD 240 mg p.o. daily. 9. Amitriptyline 1 tablet p.o. at bedtime. 10. DuoNeb 3 mL inhaler every 4 hours p.r.n. as needed for shortness of breath. 11. Levofloxacin 500 mg p.o. daily for 5 more days. PHYSICAL EXAMINATION: Vital signs: Temperature 97.4 degrees, pulse 92, respiratory rate 18, blood pressure 127/69, oxygen saturation 97% on room air. HEENT: Head normocephalic. No trauma. PERRLA. Neck: Supple. No JVD. No masses. Central trachea. Chest: Decreased breath sounds at the bases with some crepitus. Cardiovascular: Irregularly irregular rate and rhythm. Abdomen: Soft, nontender, nondistended. No hepatosplenomegaly. Extremities: No edema. No clubbing. No cyanosis. Neurological: The patient is alert and oriented x3. Generalized weakness, but no focal deficits. DIAGNOSTIC DATA: WBC 8.6, hemoglobin 12.3, hematocrit 39.2, platelets 188. Glucose 187. COORDINATION TIME: Time discharging this patient 40 minutes. cc: Kg Wen MD [facility]
[2018-10-27 17:10] VITALS: BP 147/70
== END 2018-10-27 19:43 | DRG 308 ==
LOC: ED 10:51 → SUATTDRO 19:49 → 3S 19:49 → ICU 10-13 11:27 → 3S 10-23 16:27 → 3N 10-24 11:02
PROVIDERS: ATTEND Internal Medicine
CPT/HCPCS: 36430; 36569; 71010; 71045; 71250; 71275; 74000; 74018; 74175; 74176; 74177; 76705; 76770; 80048; 80053; 80061; 80069; 80074; 80076; 80196; 80307; 80324; 80329; 81001; 82003; 82009; 82150; 82550; 82553; 82570; 82607; 82746; 82805; 82948; 83036; 83540; 83550; 83605; 83690; 83735; 83880; 84100; 84134; 84300; 84439; 84443; 84484; 84540; 85014; 85018; 85025; 85045; 85379; 85610; 85730; 86850; 86900; 86901; 86920; 87040; 87070; 87077; 87088; 87186; 87205; 93005; 93010; 93306; 93312; 93970; 94002; 94003; 94640; 94761; 94762; 94799; 96365; 96366; 96375; 97110; 97162; 97166; 97530; 99285; A9270; C9113; G0480; G6038; G6039; J0692; J0696; J1265; J1650; J1815; J1940; J1956; J2060; J2185; J2270; J3370; J3475; J7030; J7040; J7050; J7070; P9016; Q9967; S0164; XXXXX

== ENCOUNTER 2019-01-18 10:55 | Inpatient (IN) ==
[2019-01-18] MEDS ORDERED: CARDIZEM IV ONE (10:59)
--- NOTE | 2019-01-18 11:28 | Diag Imaging Result Doc PS360 ---
CHEST-1 VIEW - 01/18/2019 INDICATION: A FIB WITH rvr COMPARISON: 10/25/2018 FINDINGS: Lung volumes are severely low similar to prior. There is some stable nonspecific consolidation or atelectasis of the left lower lobe with obscuration of the left hemidiaphragm. There is also some fairly stable linear atelectasis in the left lung base. Heart size and pulmonary vascularity remains top normal. No pneumothorax or significant pleural effusion. IMPRESSION: Nonspecific findings. Little change from prior. Electronically signed by Moisés Grajeda 01/18/2019 11:26 AM
--- NOTE | 2019-01-18 13:35 | Diag Imaging Result Doc PS360 ---
CHEST-PORTABLE - 01/18/2019 1:24 PM INDICATION: afib, sob COMPARISON: 11:18 AM FINDINGS: There is no change from prior. IMPRESSION: No change from prior. Electronically signed by Moisés Grjaeda 01/18/2019 1:33 PM
--- NOTE | 2019-01-18 13:40 | CARDIOLOGY CONSULTATION ---
DATE: 01/18/2019 HISTORY OF PRESENT ILLNESS: Ms. Sullivan was seen today in the office. She has multiple medical problems. She complained of having increasing shortness of breath and some palpitations as well, and she was brought by her daughter. Home health also noticed that she has features suggestive of urinary tract infection. She does not complain of chest pain. She says she does not have energy and feels weak. She had been discharged on the medications while she was recently admitted; however, the medications which she was discharged home on are different from the medications she has been taking currently. More so, she has been discharged on Cardizem CD 240 and she has not been taking Cardizem, and her heart rate in our office was 150 beats per minute. Atrial fibrillation. Low-voltage complexes. Given this and her symptoms, I have recommended that she be admitted to the hospital. She was taken to the emergency room. There is no dizziness or syncope. She had a complicated hospital course while she was admitted at [facility] on 10/11/2018. She was discharged home with the following diagnoses: Congestive heart failure, atrial fibrillation, rapid ventricular rate, acute kidney injury, E coli UTI, left lower lobe pneumonia. She had retroperitoneal bleed, thrombocytopenia, sepsis. She was discharged home on: 1. Levothyroxine. 2. Glyburide. 3. Metformin 1 tablet p.o. b.i.d. 4. Furosemide 20. 5. Atorvastatin 20. 6. Lisinopril 10. 7. Insulin (Detemir) 35 units subcutaneous. 8. [place] as needed. 9. Cardizem CD 240. 10. Amitriptyline. 11. DuoNebs. 12. Levofloxacin for 5 days. Medication list which she had been taking at home is different, and it needs to be reconciled. REVIEW OF SYSTEMS: General: A 14-point review of system was done. GI System: There is no nausea, vomiting. There is no history of hematemesis or melena. Central nervous system: No focal weakness to suggest a CVA, TIA. PAST MEDICAL HISTORY: 1. Coronary artery disease, drug-eluting stent placement to the left anterior descending artery in 2010. 2. History of atrial fibrillation, admitted on 10/11/2018 with rapid ventricular rate. 3. Hypertension, diabetes, urinary tract infection, sepsis. 4. Hypothyroidism. 5. Had retroperitoneal hematoma large on 10/11/2018 which was thought secondary to Lovenox, which she had received as she was in atrial fibrillation with rapid ventricular rate. 6. History of fall. 7. History of traumatic fracture in the past to the left femur. 8. Diabetes. 9. Hyperlipidemia. 10. Mod to severe Mitral regurgitation, by SIVAN PHYSICAL EXAMINATION: Vital Signs: Blood pressure was 120/60. First and second heart sounds were heard. Respiratory System: A few scattered wheeze. Abdomen: Soft, nontender. There was no guarding or rigidity. Bowel sounds were heard. Central nervous system: Alert, oriented, was moving all 4 extremities Extremities: Examination of extremities revealed mild pedal edema. HEENT: The patient looked slightly pale. There was no icterus. ASSESSMENT AND PLAN: Ms. Sharon Sullivan is an 83-year-old lady, who has history of coronary artery disease, hypertension, diabetes, hypothyroidism, was recently admitted in [facility] with urosepsis, atrial fibrillation with rapid ventricular rate, and discharged home on Cardizem. She had not been taking her Cardizem, and today when I saw her she was more short of breath with atrial fibrillation with rapid ventricular rate. Given this, I have recommended she be admitted to the hospital. PROBLEM LIST: 1. Atrial fibrillation, rapid ventricular rate. We have put her back on Cardizem. 2. She has had significant retroperitoneal bleed requiring 4 units of blood transfusion during recent hospitalization. She looks pale. We will get a blood profile, CBC, BMP and thyroid profile as well. 3. History of urinary tract infection. Would recommend checking urinary tract infection. 4. As far as anticoagulation therapy is concerned, she has had recent retroperitoneal bleed. We will avoid anticoagulation therapy. 5. Diabetes. Continue with medications which she had been taking. 6. Hypothyroidism. She has been on levothyroxine. I would recommend continuing that. 7. We will also get a chest x-ray to make sure there is no pneumonia airspace disease. Thank you for the consult. We will follow hospital course. cc: MD RAI Pastor
[2019-01-18 15:05] LABS: URINE SOURCE CATH
[2019-01-18 15:15] LABS: BILIRUBIN URINE NEGATIVE (NEGATIVE); BLOOD URINE MODERATE (NEGATIVE); COLOR YELLOW; GLUCOSE URINE NEGATIVE (NEGATIVE); KETONE URINE TRACE mg/dL (NEGATIVE); LEUKOCYTES URINE LARGE (NEGATIVE); NITRITE URINE NEGATIVE (NEGATIVE); PH URINE 5.5; PROTEIN URINE 50 mg/dL (NEGATIVE); SP GRAVITY URINE 1.019; TURBIDITY URINE TURBID (CLEAR); UROBILINOGEN URINE 2 mg/dL (NORMAL)
[2019-01-18 15:19] LABS: ALB/GLOB RATIO 1.2; ALBUMIN 3.6 g/dL (3.5-5.0); CALCIUM 9.8 mg/dL (8.8-10.2); POTASSIUM 5.1 mmol/L (3.5-5.1); TOTAL BILIRUBIN 2.06 mg/dL (0.20-1.00); TOTAL PROTEIN 6.7 g/dL (6.3-8.3)
[2019-01-18 15:22] LABS: UR EPITHELIAL CELLS <10 /HPF (<10); URINE BACTERIA 4+ /HPF; URINE WBC TNTC /HPF (<10)
[2019-01-18 15:32] LABS: URINE CASTS GRANULAR PRESENT
[2019-01-18 15:44] LABS: BASO# 0.01 X1000 (0.0-0.2); BASO% 0.1 % (0.0-0.8); HEMATOCRIT 43.6 % (37.0-47.0); HEMOGLOBIN 15.2 g/dL (12.0-16.0); IMM GRAN# 0.05 X1000 (0.0-0.04); IMM GRAN% 0.6 % (0.0-0.5); LYMPH# 1.01 X1000 (1.2-3.4); LYMPH% 11.6 % (20.5-51.1); MCH 30.2 PG (27-31); MCHC 34.9 g/dL (33-37); MCV 86.7 FL (81-99); MONO# 0.32 X1000 (0.11-0.59); MONO% 3.7 % (1.7-9.3); MPV 10.8 FL (7.4-10.4); NEUT# 7.34 X1000 (1.4-6.5); PLT 95 X1000 (130-400); RBC 5.03 XMIL (4.2-5.4); WBC 8.73 X1000 (4.8-10.8)
[2019-01-18 15:46] LABS: FREE T4 0.57 ng/dL (0.93-1.70); TSH 7.01 uIUmL (0.27-4.20)
--- NOTE | 2019-01-18 15:51 | EKG Report ---
Test Performed on : 01/18/2019 10:50:19 AM Test Reason : CP Blood Pressure : / mmHG Vent. Rate : 147 BPM Atrial Rate : 129 BPM P-R Int : 000 ms QRS Dur : 086 ms QT Int : 262 ms P-R-T Axes : 000 -20 -43 degrees QTc Int : 410 ms Atrial fibrillation. with rapid ventricular response. Low voltage QRS Septal infarct , age undetermined Abnormal ECG No previous ECGs available Unconfirmed Result
--- NOTE | 2019-01-18 15:54 | PROVIDER DOCUMENTATION ---
This chart was entered by Ramona Orellana Scribe, acting as scribe for Wilmer Eduardo MD. HPI-Cardiac General - General Chief Complaint: Chest Pain Stated Complaint: AFIB Time Seen by Provider: 01/18/19 10:58 Source: patient Allergies/Adverse Reactions: Patient Allergies Allergy/AdvReac Type Severity Reaction Status Date / Time Penicillins AdvReac SHORTNESS Verified 10/11/18 11:35 OF BREATH Home Medications: Home Medication List Medication Instructions Recorded Confirmed Last Taken Type Atorvastatin Calcium [Lipitor] 1 tab PO DAILY 10/11/18 10/11/18 Unknown History Furosemide 1 tab PO DAILY 10/11/18 10/11/18 Unknown History Glyburide/Metformin HCl 1 tab PO BID 10/11/18 10/11/18 Unknown History [Glyburide-Metformin 5-500 mg] Levothyroxine [Synthroid] 1 tab PO DAILY 10/11/18 10/11/18 Unknown History Albuterol 2.5MG/Ipratrop 0.5MG 3 ml INH Q4H PRN PRN neb 10/27/18 Unknown Rx [Duoneb (A & A)] Amitriptyline HCl 1 tab PO QHS #30 tab 10/27/18 Unknown Rx Diltiazem C.d. [Cardizem Cd] 240 mg PO DAILY #60 cap 10/27/18 Unknown Rx Hydrocodone/APAP 5 mg/325 mg 1 ea PO Q6H PRN PRN #20 tab 10/27/18 Unknown Rx [[place]-5] Insulin Detemir [Levemir] 35 unit SUBQ DAILY #1 insuln.pen 10/27/18 Unknown Rx Levofloxacin [Levaquin] 500 mg PO DAILY #5 tab 10/27/18 Unknown Rx Lisinopril [Zestril] 10 mg PO DAILY #60 tab 10/27/18 Unknown Rx - History of Present Illness-Cardiac Nature of Presenting Problem: 83 yowf presents to the ed with family at bedside. pt sts has been out of Cardizem for 1 month and has not been feeling well since december. pt denies chest pain syncope or n/v. pt c/o fatigue and is in afib with rvr on exam Location: reports: other (denies chest pain) Severity in ED: moderate (hr 158) Onset/Duration: unsure (possible 1 month sine ran out of her medication) Timing: still present Context/Activities at Onset: reports: light activity Modifying Factors: improves with: nothing Palpitation Quality: irregular History of arrythmia: reports: A-Fib Recent use of:: reports: caffeine Nitro Today/Relief: reports: no nitro taken today Aspirin Treatment Today: reports: no aspirin today Associated Symptoms: reports: fatigue. denies: abdominal pain, back pain, diaphoresis, dizziness, fever/chills, nausea, shortness of breath, syncope, vomiting Similar Symptoms Previously?: Yes (hx of afib) Recently Seen Here or By Another Healthcare Provider: No Review of Systems - Adult - REVIEW OF SYSTEMS - ADULT Constitutional: reports: see HPI, fatique. denies: chills, fever Eyes: reports: no symptoms reported Ears, Nose, Mouth & Throat: reports: no symptoms reported Cardiovascular: reports: see HPI, edema, irregular heart rate, palpitations. denies: chest pain, syncope Respiratory: denies: cough Gastrointestinal: denies: abdominal pain, diarrhea, nausea, rectal bleeding Genitourinary: reports: no symptoms reported Musculoskeletal: denies: back pain, neck pain Integumentary: reports: no symptoms reported Neurological: denies: dizziness/vertigo, headache/migraines Psychiatric: reports: no symptoms reported Endocrine: reports: no symptoms reported Hematologic/Lymphatic: reports: no symptoms reported Allergic/Immunologic: reports: no symptoms reported All Other Systems: Reviewed and Negative Past History - Adult - PAST MEDICAL HISTORY-ADULT Review of Records: reports: Medications Reviewed Major Childhood Illnesses: reports: denies history Cardiovascular: reports: A-Fib, CAD, HTN, hyperlipidemia Respiratory: reports: denies history Gastrointestinal: reports: denies history Obstetrical/Gynecological: reports: denies history Genitourinary: reports: denies history Musculoskeletal: reports: denies history Neurological: reports: denies history Psychiatric: reports: denies history Endocrine/Immune: reports: Diabetes, thyroid disorder Diabetes Type: Type 2 Other Conditions: reports: denies history - PRIOR SURGERIES/PROCEDURES Surgical/Procedure History: reports: cardiac stent, hysterectomy, joint replacement (bilateral knee and left hip) - IMMUNIZATION STATUS Childhood Immunizations: See Nurse Assessment Flu Vaccine: See Nurse Assessment - FAMILY HISTORY Family History: reviewed, not pertinent - SOCIAL HISTORY Smoking: denies Substance Use: denies Living Situation: family Physical Exam-General - CONSTITUTIONAL General Appearance: alert, no apparent distress, obese - EYES Eyes: PERRL/EOMI, pink conjunctivae - HEAD, EARS, NOSE, MOUTH & THROAT HENMT: moist mucous membranes, normal ENT inspection, TMs normal, pharynx normal - NECK Neck: non-tender, full range of motion, supple, normal inspection - RESPIRATORY Respiratory: chest non-tender, lungs clear, normal breath sounds - CARDIOVASCULAR Cardiovascular: normal peripheral pulses, irregularly irregular - GASTROINTESTINAL (ABDOMEN) Abdominal Exam: normal bowel sounds, non tender, soft - LYMPHATIC Lymphatic: no adenopathy - MUSCULOSKELETAL Back Exam: normal inspection, no CVA tenderness, no vertebral tenderness Extremity: normal range of motion, non-tender, normal inspection, no calf tenderness, normal capillary refill, pelvis stable, swelling (BLE edema) - SKIN Integumentary: normal color, normal turgor, warm/dry - NEUROLOGIC Neurologic: grossly normal, no motor/sensory deficits - PSYCHIATRIC Psych/Mental Status: normal mood/affect, normal thought content, normal thought process, oriented x 3 Progress - PLAN OF CARE/RESULTS Progress/Plan/Lab Results: Vital Signs - 8 hr 01/18/19 10:57 Temperature 98.4 F Pulse Rate 158 H Respiratory Rate 18 Blood Pressure 143/96 Laboratory Results - last 24 hr 01/18/19 01/18/19 01/18/19 14:13 14:13 14:13 WBC Cancelled RBC Cancelled Hgb Cancelled Hct Cancelled MCV Cancelled MCH Cancelled MCHC Cancelled RDW Std Deviation Cancelled Plt Count Cancelled MPV Cancelled Immature Gran % (Auto) Cancelled Neut % (Auto) Cancelled Lymph % (Auto) Cancelled [place] % (Auto) Cancelled Eos % (Auto) Cancelled Baso % (Auto) Cancelled Immature Gran # (Auto) Cancelled Neut # (Auto) Cancelled Lymph # (Auto) Cancelled [place] # (Auto) Cancelled Eos # (Auto) Cancelled Baso # (Auto) Cancelled Corrected WBC (Man) Cancelled Sodium 135 L Potassium 5.1 Chloride 101 Carbon Dioxide 17 L Anion Gap 17 BUN 26 H Creatinine 1.0 H Estimated GFR/1.73 m2 53 BUN/Creatinine Ratio 26 Glucose 129 H Calculated Osmolality 277 Calcium 9.8 Total Bilirubin 2.06 H AST 39 H ALT 25 Alkaline Phosphatase 140 H Creatine Kinase 85 Troponin T 0.069 Total Protein 6.7 Albumin 3.6 Globulin 3.1 Albumin/Globulin Ratio 1.2 TSH Free T4 Urine Source Urine Color Urine Turbidity Urine pH Ur Specific [place] Urine Protein Ur Glucose (Stick) Ur Ketones (Stick) Urine Blood Urine Nitrite Urine Bilirubin Urobilinogen Dipstick Urine Leukocytes Urine WBC (Auto) Urine RBC (Auto) U Epithel Cells (Auto) Urine Bacteria (Auto) Urine Crystals Small Round Cells Urine Casts Urine Yeast-like Cells 01/18/19 01/18/19 01/18/19 14:13 14:45 14:55 WBC 8.73 RBC 5.03 Hgb 15.2 Hct 43.6 MCV 86.7 MCH 30.2 MCHC 34.9 RDW Std Deviation 20.0 H Plt Count 95 L MPV 10.8 H Immature Gran % (Auto) 0.6 H Neut % (Auto) 84.0 H Lymph % (Auto) 11.6 L [place] % (Auto) 3.7 Eos % (Auto) 0.0 Baso % (Auto) 0.1 Immature Gran # (Auto) 0.05 H Neut # (Auto) 7.34 H Lymph # (Auto) 1.01 L [place] # (Auto) 0.32 Eos # (Auto) 0.00 Baso # (Auto) 0.01 Corrected WBC (Man) Sodium Potassium Chloride Carbon Dioxide Anion Gap BUN Creatinine Estimated GFR/1.73 m2 BUN/Creatinine Ratio Glucose Calculated Osmolality Calcium Total Bilirubin AST ALT Alkaline Phosphatase Creatine Kinase Troponin T Total Protein Albumin Globulin Albumin/Globulin Ratio TSH 7.01 H Free T4 0.57 L Urine Source CATH Urine Color YELLOW Urine Turbidity TURBID Urine pH 5.5 Ur Specific [place] 1.019 Urine Protein 50 A Ur Glucose (Stick) NEGATIVE Ur Ketones (Stick) TRACE A Urine Blood MODERATE A Urine Nitrite NEGATIVE Urine Bilirubin NEGATIVE Urobilinogen Dipstick 2 A Urine Leukocytes LARGE A Urine WBC (Auto) TNTC A Urine RBC (Auto) 10-20 A U Epithel Cells (Auto) <10 Urine Bacteria (Auto) 4+ Urine Crystals Not Reportable Small Round Cells Not Reportable Urine Casts GRANULAR PRESENT Urine Yeast-like Cells Not Reportable Orders Category Date Time Status Cardiac Monitoring DIRECTED Care 01/18/19 10:59 Active CHEST-1 VIEW [RAD] Stat Exams 01/18/19 10:59 Completed CHEST-PORTABLE [RAD] Stat Exams 01/18/19 13:16 Completed CBC WITH DIFF [HEME] Stat Lab 01/18/19 14:55 Results CK PROFILE [SP CHEM] Stat Lab 01/18/19 14:13 Completed COMPREHENSIVE METABOLIC PANEL [CHEM] Stat Lab 01/18/19 14:13 Completed FREE T4 Routine Lab 01/18/19 14:13 Completed TROPONIN T Stat Lab 01/18/19 14:13 Completed TSH Routine Lab 01/18/19 14:13 Completed URINALYSIS W/POSS RFLX CULT [URINALYSIS] Stat Lab 01/18/19 14:45 Completed URINE CULTURE [RM] Routine Lab 01/18/19 15:24 Received URINE MANUAL MICROSCOPIC [URINALYSIS] Stat Lab 01/18/19 14:45 Completed Diltiazem [Cardizem] Med 01/18/19 10:59 Discontinued 20 mg IV NOW ONE Transfer/Admit Order [TRANSFER] Routine Transfer 01/18/19 15:21 Ordered Result Diagrams: 01/18/19 14:55 01/18/19 14:13 - REASSESSMENT Reassessment #1 Time Reassessed: 11:43 (discussing poc of pt) Status: unchanged Reassessment Comment: dr eduardo at bedside - EKG 1 Time of EKG reading by physician:: 10:53 EKG Read and Signed by:: Wilmer Eduardo EKG Interpretation (*Must complete 3 of following elements*): Abnormal Rate: 147 Rhythm: afib with rvr [place]: normal QRS: other (low voltage qrs) VT Interval: normal ST Wave: normal Comments: septal infarct, age unddetermined - XRAY 1 XRAY: Bilateral XRAY Study: Chest Impression: See EMR Report (CHEST-1 VIEW - 01/18/2019 INDICATION: A FIB WITH rvr COMPARISON: 10/25/2018 FINDINGS: Lung volumes are severely low similar to prior. There is some stable nonspecific consolidation or atelectasis of the left lower lobe with obscuration of the left hemidiaphragm. There is also some fairly stable linear atelectasis in the left lung base. Heart size and pulmonary vascularity remains top normal. No pneumothorax or significant pleural effusion. IMPRESSION: Nonspecific findings. Little change from prior. Elect ronically signed by Moisés Grajeda 01/18/2019 11:26 AM 01/18/19 1126 Interpreting Physician: Moisés Grajeda MD Dictated Date/Time: 01/18/19 1124 cc: Wilmer Eduardo MD; Milad Médnez MD) - CONSULTS/PCP/HOSPITALIST Notification #1 *Consult/PCP/Hospitalist*: Hospitalist Time Discussed: 15:52 Consult Disposition: Will see in ED, Admit Departure - Departure Date of Disposition Decision: 01/18/19 Time of Disposition Decision: 15:52 DIAGNOSIS: Atrial fibrillation with RVR, Non compliance w medication regimen Disposition: ADMITTED INPATIENT 09 Certified Medical Emergency: Emergent Condition: Good - Critical Care Note This patient required my direct & personal management of CC.: Yes Total Time (mins): 38 Critical Care Statement: This patient required my direct personal management to treat or rule out processes, the absence of which, could potentiallly result in sudden, clinically significant life or limb threatening deterioration. Attestation - Physician/ ANDIE Attestation Patient care was provided by Advanced Practice Provider:: No The physician spent face to face time with patient:: Yes Advanced Practice Provider documentation review:: Supervising physician onsite and consulted in the evaluation and care of this patient. The physician did have a face to face encounter with the patient. This chart was documented by the indicated scribe, (Ramona Orellana Scribe) and accurately reflects the services I performed and decisions made by me, Wilmer Eduardo MD, as attested by the provider's signature.
[2019-01-18 16:48] LABS: LARGE PLATELETS 1+; LYMPHS 10 % (21-51); MONO 4 % (1-9); NRBC 2 % (0-0); SEGS 86 % (42-75)
[2019-01-18] MEDS ORDERED: SYNTHROID PO ONE (17:24)
[2019-01-18] MEDS ORDERED: LEVAQUIN 250 MG in NS 50 ML IV SCH (17:24)
[2019-01-18] MEDS ORDERED: TYLENOL PO PRN (17:24)
[2019-01-18] MEDS: AZACTAM 1 GM in NS 50 ML IV SCH (17:55)
--- NOTE | 2019-01-18 18:30 | HISTORY AND PHYSICAL ---
ADDENDUM: I saw Ms. Sullivan today in the ER. The daughter was at the bedside. I am told that Ms. Sullivan presented because of palpitations. Over here in the ER she was found to be in atrial fibrillation RVR with a rate of over 158. She was given a 1 time dose of Cardizem IV push and that improved the heart rate. However, when I came to see her she was still in the rate of over 112, 120. I am also told that she is having frequent urination with extra smell and dark coloration to the urine. I have reviewed Ms. Sullivan's current lab work as well as her imaging studies. I agree with the history and physical that has been dictated by the MARKETING COMMUNITY LIAISON. IMPRESSION AND PLAN: Ms. Sullivan has been admitted for: 1. Atrial fibrillation with rapid ventricular response. She is known to have atrial fibrillation. She is still in RVR, so we will start her on IV Cardizem. 2. Fluid overload. There is positive lower extremity edema. There is also edema on the lateral aspect of the abdominal wall. We will withhold the IV fluids and give the patient a very low dose of diuretics and re-evaluate her fluid status in the morning. 3. Hypothyroidism. We will start the patient on levothyroxine at a very low dose since the patient is already in atrial fibrillation with RVR. 4. Urinary tract infection. Previous studies revealed E. coli. However, patient is said to be allergic to penicillin and because of drug-drug interaction of Levaquin with Cardizem, I will withhold the Levaquin and start the patient on aztreonam. 5. Diabetes mellitus. We will continue to titrate. We will continue with adequate insulin coverage. Please review the details of the H P which is dictated in the chart. cc: Anshu Mark MD
[2019-01-18] MEDS: LASIX IV SCH (19:25)
[2019-01-18] MEDS: CARDIZEM 125/NS 125 MG/125 ML IVPB IV SCH (19:57)
[2019-01-18 22:15] LABS: URINE SOURCE CLEAN CATCH
[2019-01-18 23:12] LABS: BILIRUBIN URINE NEGATIVE (NEGATIVE); BLOOD URINE SMALL (NEGATIVE); COLOR YELLOW; GLUCOSE URINE NEGATIVE (NEGATIVE); KETONE URINE NEGATIVE (NEGATIVE); LEUKOCYTES URINE MODERATE (NEGATIVE); NITRITE URINE NEGATIVE (NEGATIVE); PROTEIN URINE NEGATIVE (NEGATIVE); SP GRAVITY URINE 1.003; TURBIDITY URINE CLEAR (CLEAR); UR EPITHELIAL CELLS <10 /HPF (<10); URINE BACTERIA 4+ /HPF; URINE RBC <10 /HPF (<10); UROBILINOGEN URINE NORMAL (NORMAL)
--- NOTE | 2019-01-18 23:16 | HISTORY AND PHYSICAL ---
ADMISSION DATE: 01/18/2019 DISCHARGE DATE: PRIMARY CARE PROVIDER: Dr. Milad Méndez. COUNTER INTELLIGENCE TECHNICIAN: Dr. Hanson. CHIEF COMPLAINT: Shortness of breath. HISTORY OF PRESENT ILLNESS: Ms Sullivan is an 83-year-old female who carries a past medical history of hypothyroidism, diabetes mellitus, coronary artery disease with drug-eluting stent to the LAD, history of atrial fibrillation, recent retroperitoneal hematoma on 10/11/2018 secondary to Lovenox, hyperlipidemia, moderate to severe mitral regurgitation, who was seen by Dr. Hanson in his office today with complaints of shortness of breath and palpitations. They also reported that Home Health felt that she had a urinary tract infection. She did not complain of any chest pain, fever, chills. However, she did complain of not having energy and she felt weak. The patient was actually discharged home on Cardizem CD, but that is not the medication that she has been taking at home. Her heart rate in Dr. Hanson's office was over 150 beats per minute showing atrial fibrillation and RVR. She was sent over to the ED. She was given a dose of IV Cardizem and appears to have converted to sinus rhythm. I spoke with Dr. Hanson. He does not wish to start a Cardizem drip at this time, just place her back on her p.o. medications and admit her to [facility] and investigate the probable urinary tract infection. PAST MEDICAL HISTORY: 1. Coronary artery disease status post drug-eluting stent to the LAD in 2010. 2. Atrial fibrillation. 3. Retroperitoneal hematoma on 10/11/2018 secondary to Lovenox that she was receiving for her atrial fibrillation with RVR. 4. Hypothyroidism. 5. History of fall with a traumatic fracture to the left femur. 6. Diabetes. 7. Hyperlipidemia. 8. Moderate to severe mitral regurgitation. PAST SURGICAL HISTORY: 1. Drug-eluting stent to the LAD. 2. Bilateral knee arthroplasties. 3. ORIF of the right tibia-fibula. 4. Hip replacement. SOCIAL HISTORY: She is a . She lives with her daughter and son-in-law. No alcohol, tobacco, or illicit drug use. FAMILY HISTORY: Mother of old age. Father with a heart condition. REVIEW OF SYSTEMS: A 14 point review of systems completely negative except for those mentioned in HPI. ALLERGIES: Penicillin. HOME MEDICATIONS: Have not been reconciled; however, last discharged on levothyroxine, glyburide, metformin, Lasix, atorvastatin, lisinopril, Levemir, [place], Cardizem CD 240, amitriptyline, DuoNebs, levofloxacin. PHYSICAL EXAMINATION: Vital Signs: Temperature is 98.4 degrees, heart rate while I was in the room was in the 70s, respirations 18, blood pressure 143/96, O2 was 100% on room air. General: Ms. Sullivan is a pleasant 83-year-old female who is lying on the stretcher in the ED in no acute distress. HEENT: Atraumatic, normocephalic. PERRL. Neck: Supple. Trachea midline. Cardiovascular: Irregularly irregular rhythm. No murmurs, gallops, or rubs. Pulmonary: Bilaterally decreased throughout all lung pearl. Abdomen: Soft, nontender, nondistended. Positive bowel sounds 4 quadrants. Extremities: She does have some pitting edema to her lower extremities. Skin: Warm and dry. She has bruises to the upper extremities as well as some old scabs to her bilateral hands. She is unsure how she got those. DIAGNOSTIC DATA: Chest x-ray, nonspecific findings. LABORATORY DATA: White count is currently pending. Sodium 135, potassium 5.1, BUN 26, creatinine 1.0, blood glucose is 129, T bilirubin 2.06, AST 39, ALT 25, alkaline phosphatase 140. Urinalysis shows 4+ bacteria, too numerous to count WBCs. ASSESSMENT AND PLAN: 1. Atrial fibrillation with rapid ventricular response. The patient is now rate controlled after IV Cardizem bolus. We will continue her home p.o. Cardizem CD at 240 daily. Recheck her TSH. Monitor her electrolytes. Continue with recommendations per Cardiology. 2. Urinary tract infection. We will initiate IV antibiotics. 3. She does appear to be clinically dehydrated. We will treat her with IV hydration. 4. Diabetes mellitus. We will start her on sliding scale and pattern blood sugars. 5. Hypothyroidism. We will continue levothyroxine when reconciled. Again, recheck a TSH. 6. Recent retroperitoneal bleed so we are avoiding any anticoagulation therapy. 7. Acute kidney injury. We will continue with IV hydration. 8. Mild hyponatremia. We will continue with IV hydration. 9. Congestive heart failure history with ejection fraction around 50%. Aware. Again, we are going to gently diurese her overnight. 10. Transaminitis. She did have shock liver before. This may be her new normal. We will continue to trend. 11. Further recommendation to follow physician evaluation, laboratory and diagnostic data. Dictated by ILZETH Mcmahon for Anshu Mark MD cc: MD Kal Mckay MD David Francis, MD I have seen and examined Ms Sullivan who presents with SOB and fluid overload . She is found to be in Afib with RVR. I have also reviewed her labs and imaging studies. I agree with the above HPI and the plan reflects my opinion discussed with the INTERACTIVE MEDIA DIRECTOR. RAI
[2019-01-18] MEDS: HUMALOG SUBQ SCH (23:48)
[2019-01-19] MEDS: HUMALOG SUBQ SCH ×5 (02:26→22:10)
[2019-01-19 05:50] LABS: BASO# 0.01 X1000 (0.0-0.2); BASO% 0.1 % (0.0-0.8); EOS# 0.04 X1000 (0.0-0.7); EOS% 0.5 % (0.0-10.0); HEMATOCRIT 41.2 % (37.0-47.0); HEMOGLOBIN 14.4 g/dL (12.0-16.0); IMM GRAN# 0.03 X1000 (0.0-0.04); IMM GRAN% 0.4 % (0.0-0.5); LYMPH# 1.05 X1000 (1.2-3.4); LYMPH% 13.9 % (20.5-51.1); MCH 30.5 PG (27-31); MCV 87.3 FL (81-99); MONO# 0.31 X1000 (0.11-0.59); MONO% 4.1 % (1.7-9.3); NEUT# 6.11 X1000 (1.4-6.5); PLT 96 X1000 (130-400); RBC 4.72 XMIL (4.2-5.4); RDW 20.2 % (11.5-14.5); WBC 7.55 X1000 (4.8-10.8)
[2019-01-19 06:02] LABS: ALBUMIN 3.1 g/dL (3.5-5.0); CALCIUM 8.7 mg/dL (8.8-10.2); MAGNESIUM 1.4 mg/dL (1.5-2.7); POTASSIUM 3.7 mmol/L (3.5-5.1); TOTAL BILIRUBIN 1.65 mg/dL (0.20-1.00); TOTAL PROTEIN 6.1 g/dL (6.3-8.3)
[2019-01-19] MEDS ORDERED: MAGNESIUM SULFATE 2 GM/S.W.I. 2 GM/50 ML IVPB IV ONE (06:06)
[2019-01-19] MEDS: AZACTAM 1 GM in NS 50 ML IV SCH ×2 (06:09→17:03)
[2019-01-19] MEDS: LASIX IV SCH ×2 (06:09→17:04)
[2019-01-19] MEDS: SYNTHROID PO SCH (06:10)
[2019-01-19] MEDS: CARDIZEM 125/NS 125 MG/125 ML IVPB IV SCH (06:45)
--- NOTE | 2019-01-19 07:04 | Diag Imaging Result Doc PS360 ---
EXAM: CHEST-PORTABLE 01/19/2019 HISTORY: follow up TECHNIQUE: AP portable at 0155 COMMENT: There are platelike atelectatic changes present in the left midlung and hazy opacity over the left lower lobe with denser opacification in the retrocardiac region. This was also present on 01/18/2019 although the atelectasis appears somewhat worse. IMPRESSION: Chronic atelectasis versus pneumonia in the left lower lobe with additional subsegmental atelectasis in the lingula. Electronically signed by Ayo Jordan 01/19/2019 7:02 AM
--- NOTE | 2019-01-19 07:44 | EKG Report ---
Test Performed on : 01/19/2019 07:05:25 AM Test Reason : chest pain Blood Pressure : / mmHG Vent. Rate : 082 BPM Atrial Rate : 208 BPM P-R Int : 000 ms QRS Dur : 092 ms QT Int : 404 ms P-R-T Axes : 000 034 -89 degrees QTc Int : 472 ms Atrial fibrillation. Low voltage QRS Incomplete right bundle branch block Cannot rule out Anterior infarct (cited on or before 11-OCT-2018) Abnormal ECG When compared with ECG of 18-JAN-2019 10:50, (Unconfirmed) Vent. rate has decreased BY 65 BPM Questionable change in initial forces of Septal leads Confirmed by Lelo OWUSU, Aiden ([id number]) on 01/19/2019 8:40:02 AM
[2019-01-19] MEDS: CARDIZEM CD PO SCH (09:27)
[2019-01-19] MEDS: LANOXIN PO SCH (14:19)
--- NOTE | 2019-01-19 14:25 | PROGRESS NOTE ---
DATE: 01/19/2019 SUBJECTIVE: This morning Ms. Sullivan refers to be doing a little better. Shortness of breath is improved. OBJECTIVE: Vital Signs: Blood pressure is 114/71, pulse is, respirations 16, temperature 97.8. General: Ms. Sullivan is an 83-year-old female. She is in bed, in no distress. HEENT: Mucosa is pink and moist. Anicteric. Acyanotic. Neck: Supple. Mildly positive JVD. Chest: Air entry is bilaterally reduced. There are some crackles in posterior lung pearl. Cardiovascular: Regular rate and rhythm. Did not hear any murmurs. Abdomen: Soft, nontender. Extremities: About 1+ pedal edema distally. The patient also has some edema around the lateral aspect of the chest and abdominal wall. Central Nervous System: Patient is awake, alert, and oriented. LABORATORY DATA: WBC 7.55, hemoglobin is 14.4, platelet count of 96,000. Chemistry is also reviewed. Sodium is 134, potassium is 3.7, chloride is 100, BUN is 23, creatinine is 1.0, magnesium is 1.4, bilirubin is 1.65. ALT and AST are normal. Patient's I's and O's, urine output was 650. Patient currently has a negative balance of 1150. ASSESSMENT: 1. Atrial fibrillation with RVR on presentation. Patient is currently now back in sinus and rate control. We will switch to the oral Cardizem and add very low-dose digoxin and turn off the drip. 2. Severe right heart disease on recent echocardiogram. 3. Severe tricuspid regurgitation noted as well on the echo. 4. Fluid overload. We will continue with gentle diuresis. Patient is currently negative balance. 5. Hypothyroidism. The patient has been started on levothyroxine. 6. Gram-negative charles urinary tract infection. We will continue with the current antibiotic coverage. 7. Diabetes mellitus, controlled. 8. Hypomagnesemia. Will replace this accordingly. So, in general, this morning Ms. Sullivan is a lot better. Heart rate is controlled. She is still on a Cardizem drip which we are going to discontinue and start her back on her home p.o. Cardizem. We will also start her on low-dose digoxin and continue with the current diuretic. cc: Anshu Mark MD
[2019-01-20] MEDS: AZACTAM 1 GM in NS 50 ML IV SCH ×2 (05:38→17:54)
[2019-01-20] MEDS: LASIX IV SCH ×2 (05:38→17:54)
[2019-01-20 06:23] LABS: CALCIUM 9.2 mg/dL (8.8-10.2); CREATININE 0.9 mg/dL (0.5-0.9); POTASSIUM 3.1 mmol/L (3.5-5.1)
[2019-01-20] MEDS: HUMALOG SUBQ SCH ×4 (06:58→22:51)
[2019-01-20] MEDS: SYNTHROID PO SCH (07:01)
[2019-01-20] MEDS: LANOXIN PO SCH (09:04)
[2019-01-20] MEDS: CARDIZEM CD PO SCH (09:04)
--- NOTE | 2019-01-20 11:31 | PROGRESS NOTE ---
DATE: 01/20/2019 SUBJECTIVE: This morning, Ms. Sullivan refers to be doing fairly okay. Denies any complaints. OBJECTIVE: Vital signs: Blood pressure is 110/67, pulse 78, respiration is 18, temperature 97.0 degrees. The patient was saturating about 97% on 3 L. General: Ms. Sullivan is an elderly 83- year-old female. She was in bed, does not seems to be in any cardiopulmonary distress. Mucosa is pink and moist. Anicteric. Acyanotic. Neck: Supple. There is positive JVD. Chest: Air entry is bilaterally reduced. There are crackles in the posterior lung pearl. Cardiovascular: Irregularly irregular, is rate controlled. There is a 2/6 TR murmur. Abdomen: Soft, nontender. Bowel sounds present. Extremities: 1+ pedal edema. 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 LABORATORY DATA: Sodium is 135, potassium is 3.3, chloride is 99, bicarb is 23, creatinine is 0.9, glucose is 66, repeat is 166. The patient's urine still shows E coli. I am really not sure if it is a true pathogen or it is just living there. ASSESSMENT: 1. Atrial fibrillation with rapid ventricular response on presentation. The patient is currently rate control. She continues to be in atrial fibrillation. We will continue with the oral Cardizem and digoxin. Cardiology is on board. 2. Fluid overload likely due to right heart failure. We will continue with the diuretic therapy. The patient is making adequate urine. She is now negative balance. 3. Hypothyroidism. Will continue with thyroid supplementation. 4. Escherichia coli urinary tract infection. The patient is currently on aztreonam. Today is day 2 on this. We plan to treat this only for 3 days and discontinue the antibiotics. 5. Diabetes mellitus, controlled. 6. Severe tricuspid regurgitation noted on previous echo. 7. Hypomagnesemia, replaced. We are going to repeat the test for tomorrow morning. PLAN: So, in general, I think Ms. Sullivan is slowly getting better. The heart rate is better controlled now. We are going to continue with the diuretic therapy since she continues to have fluid on board. We will get physical therapy to start working with Ms. Sullivan and hopefully get her home soon. cc: Anshu Mark MD
[2019-01-21] MEDS ORDERED: PROTONIX IV ONE (05:05)
[2019-01-21] MEDS ORDERED: SODIUM CHLORIDE 0.9% INJ ONE (05:05)
[2019-01-21] MEDS: SYNTHROID PO SCH (06:12)
[2019-01-21] MEDS: HUMALOG SUBQ SCH ×4 (06:13→20:34)
[2019-01-21] MEDS: LASIX IV SCH ×2 (06:13→18:33)
[2019-01-21] MEDS: AZACTAM 1 GM in NS 50 ML IV SCH (07:16)
--- NOTE | 2019-01-21 07:21 | Diag Imaging Result Doc PS360 ---
CHEST-PORTABLE - 01/21/2019 INDICATION: dyspnea COMPARISON: 01/19/2019 FINDINGS: Stable opacification of the left lung base. Stable mild pulmonary vascular congestion. Stable mild cardiomegaly. No new infiltrates. IMPRESSION: No change from prior. Electronically signed by Moisés Grajeda 01/21/2019 7:19 AM
[2019-01-21 07:56] LABS: BASO# 0.01 X1000 (0.0-0.2); BASO% 0.1 % (0.0-0.8); EOS# 0.01 X1000 (0.0-0.7); EOS% 0.1 % (0.0-10.0); HEMATOCRIT 43.9 % (37.0-47.0); IMM GRAN# 0.03 X1000 (0.0-0.04); IMM GRAN% 0.4 % (0.0-0.5); LYMPH# 0.64 X1000 (1.2-3.4); LYMPH% 8.1 % (20.5-51.1); MCH 30.1 PG (27-31); MCHC 34.2 g/dL (33-37); MCV 88.2 FL (81-99); MONO# 0.31 X1000 (0.11-0.59); MONO% 3.9 % (1.7-9.3); NEUT# 6.86 X1000 (1.4-6.5); NEUT% 87.4 % (42.2-75.2); PLT 94 X1000 (130-400); RBC 4.98 XMIL (4.2-5.4); RDW 20.1 % (11.5-14.5); WBC 7.86 X1000 (4.8-10.8)
[2019-01-21 08:31] LABS: AGAP 17; ALB/GLOB RATIO 1.1; ALBUMIN 3.5 g/dL (3.5-5.0); ALKALINE PHOSPHATASE 141 U/L (32-104); BUN 17 mg/dL (8-22); CALCIUM 9.3 mg/dL (8.8-10.2); CHLORIDE 96 mmol/L (98-107); COSMO 280; CREATININE 0.8 mg/dL (0.5-0.9); ESTIMATED GFR > 60; GLUCOSE 183 mg/dL (70-104); GOT 28 U/L (10-30); GPT 24 U/L (10-36); POTASSIUM 3.1 mmol/L (3.5-5.1); SODIUM 137 mmol/L (136-145); TCO2 24 mmol/L (25-35); TOTAL BILIRUBIN 2.13 mg/dL (0.20-1.00); TOTAL PROTEIN 6.8 g/dL (6.3-8.3)
[2019-01-21] MEDS: LANOXIN PO SCH (09:11)
[2019-01-21] MEDS: CARDIZEM CD PO SCH (09:11)
[2019-01-21] MEDS: ZOFRAN IV PRN ×2 (09:14→20:09)
[2019-01-21] MEDS: MIRALAX PO SCH (13:29)
[2019-01-21] MEDS ORDERED: MIRALAX PO SCH (15:00)
--- NOTE | 2019-01-21 15:20 | PROGRESS NOTE ---
DATE: 01/21/2019 SUBJECTIVE: This morning Ms Sullivan refers to be doing fairly okay, denies any new complaints. Still has some residual shortness of breath however. OBJECTIVE: Vitals: Blood pressure is 129/84, pulse is 102, respiration is 18, temperature 97.8 degrees. General: Ms. Sullivan is an 83-year-old female she was in bed, she did not seem to be in any distress. Mucosa is pink and moist. Anicteric, acyanotic. Neck: Supple, positive JVD. Chest: Air entry is bilaterally reduced, there are still some crackles in the posterior lung pearl. Cardiovascular: Irregularly irregular but rate controlled. There is about 2/6 TR murmur. Abdomen: Soft, distended but nontender. Bowel sounds present. Extremities: About 1+ pedal edema. PLAN REP: Patient is awake and alert and oriented. LABORATORY DATA: Is reviewed. CBC is unremarkable. Chemistry, potassium is 3.1 rest of chemistry is unremarkable, glucose is 183. Patient pro B is 3163. I's and O's, urine output was 1875, patient is currently negative balance of 2615. Bowel movement was 0. ASSESSMENT: 1. Atrial fibrillation with rapid ventricular response on presentation currently rate controlled on Cardizem and digoxin. Patient is not on anticoagulation because of recent retroperitoneal bleed. 2. Fluid overload due to predominantly right heart failure, we are going to continue with the diuretic therapy, patient is making adequate urine. 3. Hypothyroidism. Will continue with thyroid supplement . 4. Escherichia coli urinary tract infection. Patient is on aztreonam, today is her last day. 5. Diabetes mellitus controlled on insulin regimen. 6. Severe tricuspid regurgitation noted on previous echocardiogram. 7. Constipation. Will put the patient on bowel regimen. cc: Anshu Mark MD
[2019-01-21] MEDS: DULCOLAX PR PRN (20:09)
[2019-01-22] MEDS: LASIX IV SCH ×3 (05:30→21:46)
[2019-01-22] MEDS: SYNTHROID PO SCH (06:01)
[2019-01-22] MEDS: HUMALOG SUBQ SCH ×4 (06:02→21:42)
--- NOTE | 2019-01-22 07:24 | Diag Imaging Result Doc PS360 ---
CHEST-PORTABLE - 01/22/2019 INDICATION: dyspnea COMPARISON: 01/21/2019 FINDINGS: There is new extensive infiltrate in the left upper lobe. Stable retrocardiac consolidation consistent with infiltrate or atelectasis. No pneumothorax or large pleural effusion. Stable mild cardiomegaly. Stable low lung volumes. The right lung remains clear. IMPRESSION: New large infiltrate in the left upper lobe. Electronically signed by Moisés Grajeda 01/22/2019 7:21 AM
[2019-01-22 08:47] LABS: AGAP 13; ALBUMIN 3.3 g/dL (3.5-5.0); BUN 16 mg/dL (8-22); CALCIUM 8.6 mg/dL (8.8-10.2); CHLORIDE 96 mmol/L (98-107); COSMO 272; CREATININE 0.8 mg/dL (0.5-0.9); ESTIMATED GFR > 60; GLUCOSE 112 mg/dL (70-104); MAGNESIUM 1.2 mg/dL (1.5-2.7); PHOSPHORUS 1.7 mg/dL (2.7-4.5); POTASSIUM 2.7 mmol/L (3.5-5.1); SODIUM 135 mmol/L (136-145); TCO2 26 mmol/L (25-35)
[2019-01-22] MEDS ORDERED: MAGNESIUM SULFATE 4 GM/S.W.I. 4 GM/100 ML IVPB IV ONE (08:53)
[2019-01-22] MEDS ORDERED: POTASSIUM PHOSPHATE 30 MEQ in NS 250 ML IV ONE (08:53)
[2019-01-22] MEDS ORDERED: KLOR-CON PO ONE (08:53)
[2019-01-22] MEDS: MIRALAX PO SCH (09:14)
[2019-01-22] MEDS: LANOXIN PO SCH (09:14)
[2019-01-22] MEDS: CARDIZEM CD PO SCH (09:15)
[2019-01-22] MEDS ORDERED: ALBUMIN 25% IV ONE (09:31)
--- NOTE | 2019-01-22 10:44 | PROGRESS NOTE ---
DATE: 01/22/2019 SUBJECTIVE: This morning, Ms. Sullivan refers to be feeling a little better, but she is looking more tachypneic. The daughter was at the bedside at the time of the encounter as well as her attending nurse. OBJECTIVE: Vital signs: Blood pressure is 123/63, pulse of 85, respiration is 30, temperature is 98.9 degrees, patient was saturating about 97% on 4 L. General: Ms. Sullivan is an 83-year-old elderly female. She was in bed. She seems to be tachypneic. HEENT: Mucosa is pink and moist. Anicteric. Acyanotic. Neck: Supple. Still positive JVD. Respiratory: Air entry is bilaterally reduced. There are some diffuse crackles in the posterior lung pearl. Cardiovascular: Irregularly irregular, but rate controlled. There is about a 2/6 TR murmur. Abdomen: Soft, distended. Bowel sounds present. No hepatosplenomegaly. Extremities: About 1+ pedal edema. 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 INPUT AND OUTPUT: Urine output was only 800 documented. She is currently negative balance of 3415 during the hospital course. LABORATORY DATA: Chemistry is reviewed. Sodium is 135, potassium is 2.7, chloride is 96. The patient's phosphorus is 1.7. Magnesium is also 1.2. All have been remarkably low. Chest x-ray this morning shows new large infiltrates in the left upper lobe. CURRENT MEDICATIONS: All have been reviewed. She is still on digoxin, Cardizem for rate control, insulin. ASSESSMENT: 1. Acute hypoxemic respiratory failure with new large infiltrates in the left upper lobe. The patient is now more tachypneic. A chest x-ray only showed infiltrates. We are going to do a CT scan to have a better visualization of the lung anatomy. I have been notified that Ms. Sullivan vomited a couple of times yesterday, so we are not sure if she might have aspirated or this is just all fluid. 2. Atrial fibrillation with RVR on presentation. Rate is better controlled. We are going to continue with the Cardizem and digoxin. 3. Fluid overload secondary to right heart failure. The patient is looking to be fairly the same despite she has negative balance on fluids. We are going to increase the diuretic therapy. 4. Hypothyroidism. We will continue with the thyroid supplements. 5. E. Coli urinary tract infection. The patient has been treated for 5 days with IV aztreonam. 6. Diabetes mellitus, controlled on insulin regimen. 7. Severe tricuspid regurgitation on previous echocardiogram noted. 8. Constipation, improving. Patient continues to be on bowel regimen. 9. Electrolyte abnormality (hypokalemia, hypophosphatemia, hypomagnesemia). We will replace all these and recheck on their levels tomorrow morning. PLAN: So this morning, Ms. Sullivan seems to be more tachypneic. We are going to do a CT scan of the chest to get a better lung anatomy. There is concern that Ms. Sullivan might have aspirated. Depending on whatever the CT shows, we will address it accordingly. cc: Anshu Mark MD
--- NOTE | 2019-01-22 11:31 | Diag Imaging Result Doc PS360 ---
CT THORAX W/CONTRAST - 01/22/2019 INDICATION: SOB/acute left lung opacification COMPARISON: 10/13/2018 FINDINGS: There is some minimal intravenous contrast in the SVC but not enough to be visible throughout the remainder of the exam. There is significant patient motion artifact. There is severe body wall edema. There is a small amount of ascites. There is a small right and moderate left pleural effusion. There is dependent consolidation compatible with atelectasis throughout the left upper and lower lobes in the right lower lobe. There is some minimal hazy interstitial infiltrate in the upper lobes bilaterally suggesting pulmonary edema. Major airways are patent. There is cardiomegaly. There are moderate degenerative changes of the spine. No acute or suspicious bony lesion. IMPRESSION: No significant intravenous contrast present. Severe patient motion artifact. Pulmonary arteriography would not be possible due to patient motion artifact anyway. Cardiomegaly and hazy interstitial infiltrates/pulmonary edema in the upper lobes. Bilateral pleural effusions left greater than right. Bilateral dependent atelectasis. Body wall edema and ascites. This exam was performed using automated exposure control, adjustment of mA or kV according to patient size, and/or use of iterative reconstruction technique Electronically signed by Moisés Grajeda 01/22/2019 11:29 AM
[2019-01-22 20:53] LABS: AGAP 12; BUN 14 mg/dL (8-22); CALCIUM 8.6 mg/dL (8.8-10.2); CHLORIDE 97 mmol/L (98-107); COSMO 271; CREATININE 0.8 mg/dL (0.5-0.9); ESTIMATED GFR > 60; GLUCOSE 142 mg/dL (70-104); MAGNESIUM 1.1 mg/dL (1.5-2.7); POTASSIUM 3.3 mmol/L (3.5-5.1); SODIUM 134 mmol/L (136-145); TCO2 25 mmol/L (25-35)
[2019-01-23] MEDS: DULCOLAX PR PRN (03:45)
[2019-01-23] MEDS: HUMALOG SUBQ SCH ×4 (06:10→21:10)
[2019-01-23] MEDS: SYNTHROID PO SCH (06:11)
--- NOTE | 2019-01-23 07:14 | Diag Imaging Result Doc PS360 ---
EXAM: CHEST-PORTABLE INDICATION: dyspnea TECHNIQUE: One view COMPARISON: 01/22/2019 FINDINGS: There has been significant improvement of the consolidation in the left upper lobe. The retrocardiac consolidation is approximately stable. No new consolidation is identified. Cardiac silhouette is stable. IMPRESSION: Interval improvement on the left as described. Electronically signed by Audie Chin 01/23/2019 7:12 AM
[2019-01-23 08:05] LABS: EOS# 0.08 X1000 (0.0-0.7); EOS% 0.5 % (0.0-10.0); HEMATOCRIT 42.7 % (37.0-47.0); HEMOGLOBIN 14.7 g/dL (12.0-16.0); IMM GRAN# 0.09 X1000 (0.0-0.04); IMM GRAN% 0.6 % (0.0-0.5); LYMPH# 1.06 X1000 (1.2-3.4); LYMPH% 6.6 % (20.5-51.1); MCH 29.7 PG (27-31); MCHC 34.4 g/dL (33-37); MCV 86.3 FL (81-99); MONO# 0.64 X1000 (0.11-0.59); MPV 10.8 FL (7.4-10.4); NEUT# 14.13 X1000 (1.4-6.5); NEUT% 88.3 % (42.2-75.2); PLT 100 X1000 (130-400); RBC 4.95 XMIL (4.2-5.4); RDW 19.9 % (11.5-14.5)
[2019-01-23 08:12] LABS: AGAP 14; ALBUMIN 3.7 g/dL (3.5-5.0); BUN 16 mg/dL (8-22); CALCIUM 8.9 mg/dL (8.8-10.2); CHLORIDE 94 mmol/L (98-107); COSMO 276; CREATININE 0.8 mg/dL (0.5-0.9); ESTIMATED GFR > 60; GLUCOSE 144 mg/dL (70-104); MAGNESIUM 2.1 mg/dL (1.5-2.7); PHOSPHORUS 2.7 mg/dL (2.7-4.5); POTASSIUM 3.3 mmol/L (3.5-5.1); SODIUM 136 mmol/L (136-145); TCO2 28 mmol/L (25-35)
[2019-01-23 08:44] LABS: EOS 1 % (1-10); LYMPHS 8 % (21-51); MONO 5 % (1-9); SEGS 86 % (42-75)
[2019-01-23] MEDS: MIRALAX PO SCH (10:29)
[2019-01-23] MEDS: CARDIZEM CD PO SCH (10:30)
[2019-01-23] MEDS: MAG-OX PO SCH ×2 (10:30→20:38)
[2019-01-23] MEDS: LANOXIN PO SCH (10:30)
[2019-01-23] MEDS: LASIX IV SCH ×2 (10:30→20:39)
[2019-01-23] MEDS ORDERED: STERILE WATER INJ. INJ ONE (14:03)
[2019-01-23] MEDS ORDERED: GEODON IM ONE (14:03)
--- NOTE | 2019-01-23 14:26 | PROGRESS NOTE ---
DATE: 01/23/2019 SUBJECTIVE: This morning Ms. Sullivan refers to be doing fairly okay. Still has some residual shortness of breath. OBJECTIVE: Vital Signs: Blood pressure is 144/78, pulse is 79, respiration is 17, temperature is 98.1. Patient is saturating about 92%. General: Ms. Sullivan is an 83-year-old female. She was in bed. She did not seem to be in any distress. HEENT: Mucosa is pink and moist. Anicteric. Acyanotic. Neck: Supple. There is still positive JVD. Respiratory: Air entry is bilaterally reduced. There are diffuse posterior crackles. Cardiovascular: Irregularly irregular, but rate controlled. There is about 2 to 3/6 TR murmur. Gastrointestinal: Abdomen is soft, distended, but nontender. Bowel sounds present. Extremities: About 1 to 2+ pedal edema. Central Nervous System: Patient is awake, alert and oriented. DATA: Patient's I's and O's. Urine output was 1250. The patient is currently negative balance of 3635 during the hospital course. Her weight is 161 from the 18th. I do not see any new weight documented. LABORATORY DATA: WBC is 16.00, hemoglobin is 14.7, platelet count of 100,000. There are no bands on the peripheral smear. Sodium is 136, potassium is 3.3, chloride is 94, bicarbonate is 28. Renal function test is normal. Glucose is 144. Phosphorus and magnesium are normalized. Patient's pro B has gone up to 5624. A chest x-ray this morning shows interval improvement on the left side. CURRENT MEDICATIONS: Have all been reviewed. She is currently not on any antimicrobials. 1. Digoxin 125 p.o. daily. 2. Cardizem 240 p.o. daily. 3. Lasix 40 mg IV q.12. 4. Sliding scale insulin. 5. Synthroid 25 mg p.o. daily. ASSESSMENT: 1. Acute hypoxemic respiratory failure secondary to pulmonary edema with large left-sided pleural effusion. A chest x-ray this morning shows some improvement. The patient continues to diurese adequately. We are going to continue with the current diuretic management. 2. Atrial fibrillation with RVR on presentation. The rate is better controlled. Cardiology is on board. Patient is on Cardizem and digoxin. 3. Fluid overload secondary to heart failure, predominantly right heart failure. The patient is on medication. 4. Hypothyroidism. Will continue with thyroid supplement. 5. E coli urinary tract infection. Patient has been treated with IV antibiotics for 5 days. This has been discontinued. 6. Severe tricuspid regurgitation on previous echocardiogram noted. 7. Constipation, improved with bowel regimen. 8. Electrolyte abnormality, including hypokalemia, hypophosphatemia, hypomagnesemia, improved. 9. Diabetes mellitus. Controlled on insulin regimen. 10. Generalized weakness and deconditioning. Physical therapy has been consulted. As per physical therapy notes yesterday. Patient declined to have any therapy. We will wait to see what she is able to do today. So, in general, Ms. Sullivan has been in the hospital for the past 5 days. Initially presented because of shortness of breath, was found to be in atrial fibrillation/RVR. She was initially admitted to [facility], got the heart under control with Cardizem drip, was transitioned to p.o. Cardizem and digoxin. During the hospital course, she was found to be fluid overloaded likely from congestive heart failure due to the cardiac arrhythmia. We will continue with the diuretic therapy. She is diuresing well. She is currently negative balance, but she still has fluid on. We are going to continue with the diuretic therapy and follow up with further recommendations from Cardiology. Ms. Sullivan came from home and per the licensed clinical social worker/case management note on the 18 of this month it appears that Ms. Sullivan still has the intention to go home with [facility]. We will wait for physical therapy report today to determine if she will be safe to go home or she will need an inpatient rehabilitation. cc: Anshu Mark MD
[2019-01-23] MEDS ORDERED: NS 250 ML ONE (14:38)
--- NOTE | 2019-01-23 16:14 | Diag Imaging Result Doc PS360 ---
EXAM: CHEST-PORTABLE HISTORY: picc line placement TECHNIQUE: Portable chest single view COMPARISON: 5:30 AM FINDINGS: Interval placement of a right-sided PICC line. The tip is near the junction of the superior vena cava and right atrium. No improvement in the left lung. IMPRESSION: PICC line in good position. Electronically signed by Laron Duvall 01/23/2019 4:11 PM
[2019-01-23 17:15] LABS: INR 1.33; PROTIME 17.5 Seconds (11.0-16.0)
[2019-01-23] MEDS: MELATONIN PO SCH (20:38)
[2019-01-24] MEDS: HUMALOG SUBQ SCH ×4 (05:47→21:47)
[2019-01-24] MEDS: SYNTHROID PO SCH (06:09)
--- NOTE | 2019-01-24 07:17 | Diag Imaging Result Doc PS360 ---
EXAM: CHEST-PORTABLE 01/24/2019 HISTORY: dyspnea TECHNIQUE: AP portable at 0544 COMMENT: There is atelectasis versus pneumonia in the left lower lobe. Platelike opacity seen previously in the lingula has resolved since 01/23/2019. Otherwise are has been no significant change. IMPRESSION: Improved lingular atelectasis. Residual atelectasis versus pneumonia particularly in the left lower lobe. Electronically signed by Ayo Jordan 01/24/2019 7:14 AM
[2019-01-24 07:31] LABS: BASO# 0.01 X1000 (0.0-0.2); BASO% 0.1 % (0.0-0.8); EOS# 0.01 X1000 (0.0-0.7); EOS% 0.1 % (0.0-10.0); HEMATOCRIT 46.5 % (37.0-47.0); HEMOGLOBIN 15.9 g/dL (12.0-16.0); IMM GRAN# 0.08 X1000 (0.0-0.04); IMM GRAN% 0.6 % (0.0-0.5); LYMPH# 1.24 X1000 (1.2-3.4); LYMPH% 9.8 % (20.5-51.1); MCH 29.7 PG (27-31); MCHC 34.2 g/dL (33-37); MCV 86.9 FL (81-99); MONO# 0.48 X1000 (0.11-0.59); MONO% 3.8 % (1.7-9.3); NEUT# 10.77 X1000 (1.4-6.5); NEUT% 85.6 % (42.2-75.2); PLT 106 X1000 (130-400); RBC 5.35 XMIL (4.2-5.4); RDW 20.4 % (11.5-14.5); WBC 12.59 X1000 (4.8-10.8)
[2019-01-24 08:17] LABS: AGAP 4; ALBUMIN 3.2 g/dL (3.5-5.0); BUN 15 mg/dL (8-22); CALCIUM 8.6 mg/dL (8.8-10.2); CHLORIDE 92 mmol/L (98-107); COSMO 272; CREATININE 0.7 mg/dL (0.5-0.9); ESTIMATED GFR > 60; GLUCOSE 90 mg/dL (70-104); PHOSPHORUS 2.2 mg/dL (2.7-4.5); POTASSIUM 2.8 mmol/L (3.5-5.1); SODIUM 136 mmol/L (136-145); TCO2 40 mmol/L (25-35)
[2019-01-24 09:34] LABS: HEMOGLOBIN A1C 6.9 % (4.8-6.0)
[2019-01-24] MEDS: CARDIZEM CD PO SCH (10:19)
[2019-01-24] MEDS: MAG-OX PO SCH ×2 (10:20→21:46)
[2019-01-24] MEDS: LASIX IV SCH ×2 (10:21→21:46)
[2019-01-24] MEDS: LANOXIN PO SCH (10:21)
[2019-01-24] MEDS ORDERED: POTASSIUM PHOSPHATE 40 MEQ in NS 250 ML IV ONE (16:14)
--- NOTE | 2019-01-24 16:53 | PROGRESS NOTE ---
DATE: 01/24/2019 SUBJECTIVE: The patient resting in bed. No new complaints today. OBJECTIVE: Vital signs: Temperature 97.4 degrees, pulse 47, respiratory rate 16, blood pressure is 133/70. HEENT: Patient is atraumatic, normocephalic. Cardiovascular System: S1, S2 irregular and tachycardic. Respiratory system has evidence of good air entry bilaterally. Abdomen is soft, nontender. No masses felt. Extremities have 1+ edema in the lower extremities. Central nervous system: No obvious focal deficit noted. DIAGNOSTIC STUDIES: WBC 12.59, hematocrit is 46.5 with a platelet count of 106,000. Sodium is 136, potassium 2.8, chloride is 92, bicarbonate is 4, BUN is 15, creatinine 0.7. ASSESSMENT AND PLAN: 1. Acute respiratory failure. Lung conditions include pulmonary edema as well as a large left- sided pleural effusion. Today's chest x-ray shows no significant change. Continue diuretic treatment. Follow up on patient's pulmonary status including chest x-ray as well as ABG. 2. Atrial fibrillation with rapid ventricular rate on presentation. Heart rate better controlled. Cardiology following. 3. Hypothyroidism. Continue levothyroxine. Follow up on thyroid function test. 4. Escherichia coli urinary tract infection. Antibiotic treatment completed. Repeat urine culture. 5. Severe tricuspid regurgitation. Noted. Cardiology on board. 6. Hypokalemia. Replace potassium level and check magnesium level. 7. Hypophosphatemia. Replace phosphorus level. 8. Diabetes mellitus. Continue blood sugar monitoring as well as sliding scale insulin. 9. Deconditioning. PT consulted. cc: Jerome Mojica MD [id number]
[2019-01-24] MEDS: MELATONIN PO SCH (21:46)
[2019-01-25 04:29] LABS: BASO# 0.02 X1000 (0.0-0.2); BASO% 0.2 % (0.0-0.8); EOS# 0.04 X1000 (0.0-0.7); EOS% 0.4 % (0.0-10.0); HEMOGLOBIN 15.7 g/dL (12.0-16.0); IMM GRAN# 0.06 X1000 (0.0-0.04); IMM GRAN% 0.6 % (0.0-0.5); LYMPH# 1.14 X1000 (1.2-3.4); LYMPH% 11.4 % (20.5-51.1); MCH 29.9 PG (27-31); MCHC 34.9 g/dL (33-37); MCV 85.7 FL (81-99); MONO# 0.53 X1000 (0.11-0.59); MONO% 5.3 % (1.7-9.3); NEUT# 8.21 X1000 (1.4-6.5); NEUT% 82.1 % (42.2-75.2); PLT 90 X1000 (130-400); RBC 5.25 XMIL (4.2-5.4); RDW 19.7 % (11.5-14.5)
[2019-01-25 04:31] LABS: MAGNESIUM 1.5 mg/dL (1.5-2.7); PHOSPHORUS 2.6 mg/dL (2.7-4.5)
[2019-01-25 04:39] LABS: AGAP 12; ALBUMIN 2.9 g/dL (3.5-5.0); ALKALINE PHOSPHATASE 103 U/L (32-104); BUN 13 mg/dL (8-22); CALCIUM 8.2 mg/dL (8.8-10.2); CHLORIDE 95 mmol/L (98-107); COSMO 276; CREATININE 0.7 mg/dL (0.5-0.9); ESTIMATED GFR > 60; GLUCOSE 63 mg/dL (70-104); GOT 25 U/L (10-30); GPT 18 U/L (10-36); SODIUM 139 mmol/L (136-145); TCO2 32 mmol/L (25-35); TOTAL BILIRUBIN 2.27 mg/dL (0.20-1.00); TOTAL PROTEIN 5.9 g/dL (6.3-8.3)
[2019-01-25] MEDS ORDERED: KLOR-CON PO ONE ×2 (05:50→14:01)
[2019-01-25] MEDS: SYNTHROID PO SCH (06:16)
[2019-01-25] MEDS: HUMALOG SUBQ SCH ×2 (06:17→11:54)
--- NOTE | 2019-01-25 07:23 | Diag Imaging Result Doc PS360 ---
EXAM: CHEST-1 VIEW HISTORY: resp. failure TECHNIQUE: Portable chest single view COMPARISON: 01/24/2019 FINDINGS: No change in the right-sided PICC line. Poor inspiratory effort. There are infiltrates and atelectasis in the left lung base with small left effusion. Right lung remains clear except for scattered granuloma. The overall appearance of the chest is similar to the prior exam. IMPRESSION: No interval improvement. Electronically signed by Laron Duvall 01/25/2019 7:21 AM
[2019-01-25] MEDS: LANOXIN PO SCH (09:34)
[2019-01-25] MEDS: CARDIZEM CD PO SCH (09:34)
[2019-01-25] MEDS: LASIX IV SCH (09:35)
[2019-01-25] MEDS: MAG-OX PO SCH (09:35)
[2019-01-25] MEDS ORDERED: MACROBID PO SCH (13:45)
[2019-01-25 16:02] VITALS: BP 135/69
--- NOTE | 2019-01-25 22:25 | DISCHARGE SUMMARY ---
ADMISSION DATE: 01/18/2019 DISCHARGE DATE: 01/25/2019 PRINCIPAL DIAGNOSIS: Atrial fibrillation with rapid ventricular rate, now controlled. SECONDARY DIAGNOSES: 1. Hypothyroidism. 2. Escherichia coli urinary tract infection. 3. Severe tricuspid regurgitation. 4. Constipation. 5. Hypokalemia. 6. Hypophosphatemia. 7. Hypomagnesemia. 8. Diabetes mellitus. 9. Recent history of retroperitoneal bleed. 10. Mild hyponatremia. 11. Acute kidney injury. 12. Congestive heart failure. 13. Transaminitis. DISCHARGE MEDICATIONS: Include the following: Melatonin 3 mg at bedtime; Macrobid 100 mg p.o. twice a day; digoxin 125 mcg p.o. daily; levothyroxine 125 mcg p.o. daily; atorvastatin 1 tablet daily; Lasix 1 tablet daily; glyburide/metformin 1 twice a day; albuterol nebulizer every 4 hours as needed; diltiazem 240 mg p.o. daily; Levemir 35 units subcutaneous once a day; lisinopril 10 mg p.o. daily; hydrocodone/acetaminophen 5/325 one every 6 hours as needed; Elavil 1 p.o. at bedtime. PROCEDURES: Done during this hospital stay, chest CT 01/22/2019. CONSULTATIONS: Done during this hospital stay, Cardiology consult 01/18/2019. HOSPITAL COURSE: Ms. Sharon Sullivan is an 83-year-old female who presented to the hospital because of shortness of breath and was found to be in atrial fibrillation with rapid ventricular rate. She was initially managed in the [facility]. She got better, under control with Cardizem infusion and she was later transitioned to oral Cardizem as well as digoxin. During the course of hospitalization she was found to have fluid overload, likely from congestive heart failure due to cardiac arrhythmia. Diuretic therapy was continued. The patient has done relatively well. Her urine cultures came back positive for E. coli and sensitive to amikacin, cefazolin, gentamicin, nitrofurantoin, tobramycin and piperacillin/tazobactam. The patient will be discharged home on oral Macrobid. DISCHARGE PHYSICAL EXAMINATION: During my evaluation today, she was resting comfortably in bed, not in any obvious distress. Vital signs: Temperature 97.7 degrees, pulse 77, respirations 20, blood pressure 140/75, oxygen saturation is 99%. HEENT: Atraumatic, normocephalic. Cardiovascular system: S1, S2. Respiratory system has evidence of good air entry bilaterally. Abdomen is soft, nontender. No masses felt. Extremities: No evidence of edema. Central nervous system: No obvious focal deficit noted. LABORATORY DATA: WBC 10.0, hematocrit 45.0 with a platelet count of 90,000. Sodium is 139, potassium 3.0, chloride is 95, bicarbonate 32, BUN 13, creatinine 0.7. PLAN: Discharge home today with home health services. Follow up with primary care physician as well as Cardiology in the outpatient. cc: Jerome Mojica MD
[2019-01-26] MEDS ORDERED: LASIX PO SCH (09:00)
[2019-01-26] MEDS ORDERED: KLOR-CON PO SCH (09:00)
--- NOTE | 2019-01-26 10:35 | EKG Report ---
Test Performed on : 01/25/2019 04:02:51 AM Test Reason : Bigeminy per telemetry Blood Pressure : / mmHG Vent. Rate : 078 BPM Atrial Rate : 110 BPM P-R Int : 000 ms QRS Dur : 096 ms QT Int : 458 ms P-R-T Axes : 000 -03 -07 degrees QTc Int : 522 ms Undetermined rhythm Low voltage QRS Incomplete right bundle branch block Cannot rule out Anterior infarct (cited on or before 11-OCT-2018) T wave abnormality, consider lateral ischemia Prolonged QT Abnormal ECG When compared with ECG of 19-JAN-2019 07:05, Current undetermined rhythm precludes rhythm comparison, needs review Inverted T waves have replaced nonspecific T wave abnormality in Anterior leads QT has lengthened Confirmed by Lelo OWUSU, Aiden ([id number]) on 01/27/2019 8:34:48 AM
== END 2019-01-25 17:40 | disposition home health service (06) | DRG 309 ==
LOC: ED 10:55 → EDIPHOLD 15:46 → SUATTDRO 15:46 → 3S 01-19 01:43 → 3N 01-21 00:46
PROVIDERS: ATTEND Internal Medicine
CPT/HCPCS: 36569; 51702; 71010; 71045; 71260; 80048; 80053; 80069; 81001; 82550; 82948; 83036; 83735; 83880; 84100; 84439; 84443; 84484; 85025; 85610; 87077; 87088; 87186; 93005; 93010; 94761; 94762; 96365; 96366; 96367; 96375; 97162; 97530; 99285; 99291; A9270; C9113; J1815; J1940; J2405; J3475; J3486; J7050; P9047; Q9967; S0073; S0164; XXXXX